=== PATIENT | female | born 1950 | race Caucasian/White ===

== ENCOUNTER 2022-12-03 06:01 | Day surgery (SDC) | payer MEDICARE, BC, SELFPAY ==
[2022-12-03] VITALS (26 sets, daily range): BP systolic 77–162; BP diastolic 43–93; PULSE 48–66; RESP 12–16; TEMP 35.5–36.7; O2SAT 95–100; BMI 21.0
[2022-12-03] MEDS: SODIUM CHLORIDE 0.9 % (FLUSH) 10 ML SYRINGE IVF (06:50)
[2022-12-03] MEDS: ACETAMINOPHEN 500 MG TABLET 1000 MG PO ×3 (06:50→19:53)
[2022-12-03] MEDS: LACTATED RINGERS 1000 ML 1,000 ML 100 ML IV ×2 (06:50→09:11)
[2022-12-03] MEDS: OXYCODONE (CR) 10 MG TAB.ER.12H PO (06:50)
[2022-12-03] MEDS: fentaNYL 100 MCG/2 ML inj IVP (07:22)
[2022-12-03] MEDS: MIDAZOLAM HCL 1 MG/ML inj IVP (07:22)
--- NOTE | 2022-12-03 07:36 | SUR.PREOP ---
TIME?OUT:?0722 PT/RN/MDA?VERIFICATION?OF?SURGICAL?SITE,?PROCEDURE,?AND?CONSENT OBTAINED?PRIOR?TO?INVASIVE?PROCEDURE.
[2022-12-03] MEDS: CEFAZOLIN 2 GM INJ IVP (07:45)
[2022-12-03] MEDS: TRANEXAMIC ACID 100 MG/ML INJ 1000 MG IV (07:50)
--- NOTE | 2022-12-03 09:17 | W.ANESCHARGE ---
Anesthesia Charges Start Date/Time Anesthesia Start Date: 12/03/22 Anesthesia Start Time: 07:36 Stop Date/Time Anesthesia Stop Date: 12/03/22 Anesthesia Stop Time: 11:02 Summary Extremes of Age - Over 70 or under 1: MDA
--- NOTE | 2022-12-03 09:18 | W.PM.NB ---
Nerve Block Nerve Block Time Seen by Provider: 07:25 Date Seen: 12/03/22 Type of block requested by surgeon for post-operative analgesia: adductor canal Side: bilateral Time out performed: Yes Verification of patient name: Yes Verification of date of : Yes Site marking: site marked Name of person performing procedure: Jamar Continuous monitoring Was continuous monitoring of O2 sat, B/P, bus monitor, recorded every 15 minutes?: Yes Procedure Checklist: sterile prep, needles and gloves Ultrasound guided. Images saved: Yes Medications given in 5ml increments after negative aspiration: Marcaine %: 0.25 mL: 28 Needle gauge: 20 and Exparel mL: 14 Needle gauge: 20 Patient tolerated procedure well: Yes Additional comments: Needle noted adjacent to nerve Block Charges Block Charge (with Pro Fee): Femoral Nerve Use of Ultrasound Machine for Block: Yes- US Guidance/pain block
--- NOTE | 2022-12-03 09:20 | P.NB_ITS ---
Nerve Block Nerve Block Time Seen by Provider: 07:25 Date Seen: 12/03/22 Type of block requested by surgeon for post-operative analgesia: geniculars Side: bilateral Time out performed: Yes Verification of patient name: Yes Verification of date of : Yes Site marking: site marked Name of person performing procedure: Jamar Continuous monitoring Was continuous monitoring of O2 sat, B/P, property assessment monitor, recorded every 15 minutes?: Yes Procedure Checklist: sterile prep, needles and gloves Medications given in 5ml increments after negative aspiration: Marcaine %: 0.25 mL: 12 Needle gauge: 25 and Exparel mL: 6 Needle gauge: 25 Patient tolerated procedure well: Yes Block Charges Block Charge (with Pro Fee): Genicular Nerve Block Use of Ultrasound Machine for Block: No
--- NOTE | 2022-12-03 10:18 | CRLHL7_ITS ---
For Patients: As a result of the Cures Act, medical imaging exams and procedure reports are released immediately into your electronic medical record. You may view this report before your referring provider. If you have questions, please contact your health care provider. Indication: POST OP TKA Technique: Two views right knee Findings/Impression: Hardware from a right total knee arthroplasty is in satisfactory position. Bone alignment is normal. No sign of acute fracture. Postop changes are within normal limits. Dictated by Hemant Sheth MD @ 12/03/2022 11:41:47 AM (Electronically Signed)
--- NOTE | 2022-12-03 10:18 | CRLHL7_ITS ---
For Patients: As a result of the Cures Act, medical imaging exams and procedure reports are released immediately into your electronic medical record. You may view this report before your referring provider. If you have questions, please contact your health care provider. Indication: POSTOP TKA Technique: Two views left knee Findings/Impression: Hardware from a left total knee arthroplasty is in satisfactory position. Bone alignment is normal. No sign of acute fracture. Postop changes are within normal limits. Dictated by Hemant Sheth MD @ 12/03/2022 11:41:18 AM (Electronically Signed)
--- NOTE | 2022-12-03 10:21 | PM.ORPRC ---
Procedure Note Date of procedure: 12/03/22 Procedure: PREOPERATIVE DIAGNOSIS: Bilateral knee osteoarthritis POSTOPERATIVE DIAGNOSIS: Bilateral knee osteoarthritis NAME OF OPERATION: Bilateral total knee arthroplasty SURGEON: Mynor Rosas MD RADIOGRAPHER CARDIAC CATHETERIZATION: EARL Denney ANESTHESIA: Spinal ESTIMATED BLOOD LOSS: 0 mL COMPLICATIONS: None SPECIMENS: None DRAINS: None PREOPERATIVE ANTIBIOTICS: Ancef 2 grams IMPLANTS: 1. J&J Attune # 5 posterior stabilized femur 2. #4 fixed-bearing tibia 3. #5 posterior stabilized, 5 mm fixed-bearing polyethylene 4. 38 patella INDICATIONS: The patient is a 72-year-old with a longstanding history of severe, unrelenting bilateral knee pain secondary to end-stage (grade IV) bilateral knee osteoarthritis. Despite appropriate nonoperative management, including activity modification, anti-inflammatories, [id number] pain medication, bracing, physical therapy, and injections they continue to have pain and disability. Operative intervention was offered. The risks, benefits and expected outcomes were discussed in detail. These included but were not limited to: Infection, bleeding, injury to blood vessel or nerve, venous thromboembolism. All questions were answered to their satisfaction. Use of an assistant professor of radiology was necessary throughout the case for patient positioning and safety, soft tissue retraction, and closure. PROCEDURE: Spinal anesthesia was administered. The patient was placed supine on the operating table. The assistant professor of radiology made sure the patient was positioned appropriately. Both lower extremities were prepped and draped in the usual sterile fashion. The right knee was approached 1st. It was exsanguinated with the Ravinder bandage. The pneumatic tourniquet was inflated to 300 mmHg. A standard anterior incision was made with the knee in flexion. Subcutaneous dissection was sharply taken through fascial layer #1. Full-thickness medial and lateral flaps were elevated. The assistant professor of radiology retracted the soft tissues and protected them throughout the case. A standard medial parapatellar approach was made. The patella was everted. The infrapatellar fat pad was preserved. The menisci and cruciate ligaments were sharply d?brided. Marginal osteophytes were d?brided with the rongeur. The drill was used to penetrate the femoral canal. The canal was aspirated and irrigated with pulse lavage. The intramedullary femoral guide was placed for a 5-degree valgus cut, removing 10 mm off the distal femur. The saw was used to make the cut. Whitesides line and the trans epicondylar axis were marked. The femoral sizing guide was pinned onto the distal femur. Three degrees of external rotation nicely parallels the transepicondylar axis. Pins were placed for posterior referencing. The four-in-one cutting guide was pinned onto the distal femur. The anterior, posterior, and chamfer cuts were made. The assistant professor of radiology protected the collateral ligaments. The box cutting guide was pinned. The box cuts were made. The boxed trial was placed and was an excellent fit. Drill holes for the lugs were made. Attention was then turned to the proximal tibia. The extramedullary tibial guide was placed for a neutral varus/valgus cut with 5 degrees of posterior slope, removing 2 mm based off the medial tibial surface. The assistant professor of radiology protected the collateral ligaments and the neurovascular bundle. The saw was used to make the cut. Trial components were placed. The knee was nicely balanced in both flexion and extension. The trial components were removed. The tray was placed in appropriate rotation, parallel to our tibial cutting pins. It was pinned by the assistant professor of radiology and the drill and the punch were used. The tray was removed. The punch was used again. We placed a bone plug in the femoral canal. Attention was then turned to the patella. [place] patellar thickness was 16 mm. The lobster claw resection guide was used with the 7.5 mm stas and the saw blade used as an extra stas. The saw was used to make the cut. Drill holes were made by the assistant professor of radiology. The trial was placed and was an excellent fit. Cancellous surfaces were irrigated with pulse lavage and thoroughly dried by the assistant professor of radiology. We cemented the tibial component, then the femoral component. We impacted the 5 mm polyethylene onto the tibial tray. The knee was brought into full extension. We then cemented the patellar component. Excessive cement was removed. The cement was allowed to harden. The knee was taken through a range of motion and was found to be nicely balanced in both flexion and extension. The patella tracks centrally. The assistant professor of radiology did a three minute dilute Betadine solution soak. The assistant professor of radiology irrigated the wound with 3 liters of normal saline via pulse lavage. The assistant professor of radiology reapproximated the extensor mechanism with #1 Vicryl in an interrupted gcsyss-as-kvkms fashion. The assistant professor of radiology then ran the extensor mechanism with a #1 PDO Stratafix. The assistant professor of radiology closed the subcutaneous tissues with a 3-0 Stratafix and the skin with a running 3-0 Stratafix in a subcuticular fashion. Glue was used to seal the skin. The assistant professor of radiology placed a dry dressing, JOSEPHINE stocking, and Polar Care. Attention was then turned to the left knee. The limb was exsanguinated with the Ravinder bandage. The pneumatic tourniquet inflated to 300 mmHg. A standard anterior incision was made with the knee in flexion. Subcutaneous dissection was sharply taken through fascial layer #1. Full-thickness medial and lateral flaps were elevated. The assistant professor of radiology retracted the soft tissues and protected them throughout the case. A standard medial parapatellar approach was made. The patella was everted. The infrapatellar fat pad was preserved. The menisci and cruciate ligaments were sharply d?brided. Marginal osteophytes were d?brided with the rongeur. The drill was used to penetrate the femoral canal. The canal was aspirated and irrigated with pulse lavage. The intramedullary femoral guide was placed for a 5-degree valgus cut, removing 10 mm off the distal femur. The saw was used to make the cut. Whitesides line and the trans epicondylar axis were marked. The femoral sizing guide was pinned onto the distal femur. Three degrees of external rotation nicely parallels the transepicondylar axis. Pins were placed for posterior referencing. The four-in-one cutting guide was pinned onto the distal femur. The anterior, posterior, and chamfer cuts were made. The assistant professor of radiology protected the collateral ligaments. The box cutting guide was pinned. The box cuts were made. The boxed trial was placed and was an excellent fit. Drill holes for the lugs were made. Attention was then turned to the proximal tibia. The extramedullary tibial guide was placed for a neutral varus/valgus cut with 5 degrees of posterior slope, removing 2 mm based off the medial tibial surface. The assistant professor of radiology protected the collateral ligaments and the neurovascular bundle. The saw was used to make the cut. Trial components were placed. The knee was nicely balanced in both flexion and extension. The trial components were removed. The tray was placed in appropriate rotation, parallel to our tibial cutting pins. It was pinned by the assistant professor of radiology and the drill and the punch were used. The tray was removed. The punch was used again. We placed a bone plug in the femoral canal. Attention was then turned to the patella. [place] patellar thickness was 16 mm. The lobster claw resection guide was used with the 7.5 mm stas and the saw blade used as an extra stas. The saw was used to make the cut. Drill holes were made by the assistant professor of radiology. The trial was placed and was an excellent fit. Cancellous surfaces were irrigated with pulse lavage and thoroughly dried by the assistant professor of radiology. We cemented the tibial component, then the femoral component. We impacted the 5 mm polyethylene onto the tibial tray. The knee was brought into full extension. We then cemented the patellar component. Excessive cement was removed. The cement was allowed to harden. The knee was taken through a range of motion and was found to be nicely balanced in both flexion and extension. The patella tracks centrally. The assistant professor of radiology did a three minute dilute Betadine solution soak. The assistant professor of radiology irrigated the wound with 3 liters of normal saline via pulse lavage. The assistant professor of radiology reapproximated the extensor mechanism with #1 Vicryl in an interrupted ldugkj-xb-twyau fashion. The assistant professor of radiology then ran the extensor mechanism with a #1 PDO Stratafix. The assistant professor of radiology closed the subcutaneous tissues with a 3-0 Stratafix and the skin with a running 3-0 Stratafix in a subcuticular fashion. Glue was used to seal the skin. The assistant professor of radiology placed a dry dressing, JOSEPHINE stocking, and Polar Care. Sponge and needle counts were correct x2. The patient tolerated the procedure well. There were no apparent complications. They were carefully transferred to the hospital bed and taken to the postanesthesia care unit in satisfactory condition. PLAN: The patient will be mobilized with physical therapy. Aspirin will be used for DVT prophylaxis. They will be discharged to home once medically appropriate.
--- NOTE | 2022-12-03 11:13 | P.ANES_ITS ---
Anesthesia Charges Start Date/Time Anesthesia Start Date: 12/03/22 Anesthesia Start Time: 07:36 Stop Date/Time Anesthesia Stop Date: 12/03/22 Anesthesia Stop Time: 11:02 Summary Extremes of Age - Over 70 or under 1: LARGE [employer]IMAL [employer]ET[employer]IN[employer]IAN
[2022-12-03] MEDS: OXYCODONE 5 MG TABLET PO ×4 (13:16→23:27)
--- NOTE | 2022-12-03 14:43 | PC.NURSE ---
Arrived on floor from PACU around 11:40. Alert and oriented, pleasant and cooperative initially rating pain 0/10 bilateral knees. Later rating pain as 3/10 see MAR for management. Dressings CDI, tolerating regular diet, up in chair with PT.
--- NOTE | 2022-12-03 15:44 | PM.IMCN1 ---
Date of Consult Patient: Other Consult date: 12/03/22 Requesting Physician: Orthopedics Primary Care Provider: Not a Local Provider Consult Narrative Reason for consult: hypertension, hypothyroidism Narrative: Maria Guadalupe Pereyra is a 72 year old female with severe osteoarthritis of both knees who underwent bilateral total knee arthroplasty by Dr. Rosas today. Postoperatively she feels very well and has very little pain at this time. Review of Systems Status of ROS: Reports: 10 or more systems reviewed and unremarkable except as noted in History and below PFSH [facility] Medical History (Updated 12/03/22 @ 19:19 by Padmini Oro MD) Menopausal and female climacteric states (~03/13/17) ?N95.1 - Menopausal and female climacteric states (ICD-10) COVID-19 virus infection (~01/02/22) ?U07.1 - COVID-19 (ICD-10) Skin cancer (~10/13/18) ?C44.90 - Unspecified malignant neoplasm of skin, unspecified (ICD-10) Retinal disorder (~03/16/20) ?H35.9 - Unspecified retinal disorder (ICD-10) Irritable bowel syndrome without diarrhea ?K58.9 - Irritable bowel syndrome without diarrhea (ICD-10) Hypertension (~11/26/22) ?I10 - Essential (primary) hypertension (ICD-10) Hyperlipidemia (~10/13/18) ?E78.5 - Hyperlipidemia, unspecified (ICD-10) BRCA gene positive ?Z15.01 - Genetic susceptibility to malignant neoplasm of breast (ICD-10) ?Z15.09 - Genetic susceptibility to other malignant neoplasm (ICD-10) Diverticulitis (~03/02/22) ?K57.92 - Diverticulitis of intestine, part unspecified, without perforation or abscess without bleeding (ICD-10) Hypothyroid (~01/2017) ?E03.9 - Hypothyroidism, unspecified (ICD-10) GERD (gastroesophageal reflux disease) ?K21.9 - Gastro-esophageal reflux disease without esophagitis (ICD-10) Meniere's disease ?H81.09 - Meniere's disease, unspecified ear (ICD-10) Surgical History (Updated 12/03/22 @ 14:36 by Padmini Oro MD) Hx of cataract extraction (~11/2017) ?Z98.49 - Cataract extraction status, unspecified eye (ICD-10) H/O dilation and curettage (~1981) ?Z98.890 - Other specified postprocedural states (ICD-10) Hx of hammer toe correction (~2008) ?Z98.890 - Other specified postprocedural states (ICD-10) ?Z87.39 - Personal history of other diseases of the musculoskeletal system and connective tissue (ICD-10) S/P foot surgery, left (~2009) ?Z98.890 - Other specified postprocedural states (ICD-10) History of bunionectomy (~1986) ?Z98.890 - Other specified postprocedural states (ICD-10) H/O carpal tunnel repair (~05/2022) ?Z98.890 - Other specified postprocedural states (ICD-10) History of colon surgery (05/2022) ?Z98.890 - Other specified postprocedural states (ICD-10) History of hysterectomy with bilateral oophorectomy (~12/2002) ?Z90.710 - Acquired absence of both cervix and uterus (ICD-10) ?Z90.722 - Acquired absence of ovaries, bilateral (ICD-10) History of tonsillectomy (~1962) ?Z90.89 - Acquired absence of other organs (ICD-10) Family History (Updated 12/03/22 @ 14:44 by Padmini Oro MD) Mother Ovarian cancer High blood pressure Hypothyroidism Osteoporosis Rheumatoid arthritis Thyroid cancer Sister Ovarian cancer High blood pressure Father Prostate cancer High blood pressure Brother Prostate cancer High blood pressure Cardiac arrhythmia Daughter Diabetes Daughter Skin cancer Grandfather Cardiovascular disease Dementia Sister BRCA2 positive High blood pressure Ovarian cancer Rectal cancer Sister High blood pressure Social History (Updated 12/03/22 @ 19:00 by Padmini Oro MD) Narrative: . Denies tobacco. Drinks a glass of wine with dinner 5 days a week. Denies recreational drug use. What is your current living situation?: I presently have a place to live In the past 12 months, utilities in danger of being shut off: no In the past 12 mos, have been you worried that your food would run out before you had money to buy more?: never true In the past 12 mos, the food you bought just didn't last and you didn't have money to buy more?: never true Smoking Status: Never smoker Do you use any of these nicotine containing products: None Second hand tobacco smoke exposure: No How often do you have a drink containing alcohol: 2-3 times a week Alcohol type: wine How many standard drinks containing alcohol do you have on a typical day: 1 or 2 How often do you have six or more drinks on one occasion: Never AUDIT-C Alcohol total score: 3 Non-prescribed substance use: denies use Caffeine: No How often does anyone, including family, friends and others, physically hurt you: never How often does anyone, including family, friends and others, insult or talk down to you: never How often does anyone, including family, friends and others, threaten you with harm: never How often does anyone, including family, friends and others, scream or curse at you: never service: No Meds Home Medications and Allergies Home Medications Medication Instructions Recorded Confirmed Type atenolol 100 mg tablet 100 mg PO DAILY 10/16/22 12/03/22 History cetirizine 10 mg capsule (Zyrtec) 10 mg PO HS 10/16/22 12/03/22 History levothyroxine 50 mcg tablet 50 mcg PO DAILY 10/16/22 12/03/22 History mupirocin 2 % topical ointment 1 applic topical BID-TID 10/16/22 12/03/22 History valacyclovir 1 gram tablet 4,000 mg PO ONCE 10/16/22 12/03/22 History Allergies Allergy/AdvReac Type Severity Reaction Status Date / Time Sulfa (Sulfonamide Allergy Unknown Verified 12/03/22 06:30 Antibiotics) azithromycin Allergy upset Verified 12/03/22 06:30 stomach cefprozil Allergy Verified 12/03/22 06:30 gluten Allergy unable to Verified 12/03/22 06:30 digest lactose Allergy Diarrhea Verified 12/03/22 06:30 spironolactone Allergy hyponatremi Verified 12/03/22 06:30 a Exam Narrative: Exam Narrative: General: No acute distress. Awake alert oriented x3. HEENT: Normocephalic atraumatic, pupils equally round and reactive to light and accommodation. Oropharynx clear. Mucous membranes are moist. No cervical lymphadenopathy, thyromegaly or carotid bruits. No JVD. Cardiovascular: Regular rate and rhythm. No murmurs, gallops, or rubs. Chest: No increased work of breathing. Clear to auscultation bilaterally. No crackles or wheezes. Abdomen: Bowel sounds present. Soft, nondistended, nontender. No hepatosplenomegaly or masses. Extremities: Both right and left knee bandages are clean, dry, and intact. No edema, no cyanosis or clubbing. Skin: No jaundice, no pallor. Const: Vital Signs, click to edit/add: Vital Signs - 24 hr 12/03/22 06:35 12/03/22 07:21 12/03/22 07:25 Temperature 97.7 F Pulse Rate 48 L 50 L 49 L Pulse Rate [Pulse Oximeter] Respiratory Rate 16 16 16 Blood Pressure 160/72 H 162/71 H 129/59 L Blood Pressure [Ri ght Arm] Pulse Oximetry 100 99 99 Oxygen Delivery Me thod Room Air Nasal Cannula Nasal Cannula Oxygen Flow Rate 2 2 12/03/22 07:30 12/03/22 10:57 12/03/22 11:00 Temperature 96.7 F L Pulse Rate 48 L 54 L 57 L Pulse Rate [Pulse Oximeter] Respiratory Rate 16 12 14 Blood Pressure 143/66 H 77/43 L 90/53 L Blood Pressure [Ri ght Arm] Pulse Oximetry 99 97 96 Oxygen Delivery Me thod Nasal Cannula Room Air Oxygen Flow Rate 2 12/03/22 11:05 12/03/22 11:10 12/03/22 11:15 Temperature Pulse Rate 51 L 53 L 58 L Pulse Rate [Pulse Oximeter] Respiratory Rate 14 14 15 Blood Pressure 103/52 L 112/76 102/64 Blood Pressure [Ri ght Arm] Pulse Oximetry 98 95 95 Oxygen Delivery Me thod Oxygen Flow Rate 12/03/22 11:20 12/03/22 11:25 12/03/22 11:30 Temperature 96.9 F L Pulse Rate 53 L 54 L 66 Pulse Rate [Pulse Oximeter] Respiratory Rate 16 16 14 Blood Pressure 110/93 H 116/71 115/73 Blood Pressure [Ri ght Arm] Pulse Oximetry 97 96 97 Oxygen Delivery Me thod Oxygen Flow Rate 12/03/22 11:43 12/03/22 11:45 12/03/22 12:00 Temperature 96 F L Pulse Rate 55 L Pulse Rate [Pulse Oximeter] 54 L 56 L Respiratory Rate 14 16 16 Blood Pressure Blood Pressure [Ri ght Arm] 145/67 H 129/73 122/77 Pulse Oximetry 99 98 Oxygen Delivery Me thod Room Air Room Air Room Air Oxygen Flow Rate 12/03/22 12:15 12/03/22 12:30 12/03/22 13:00 Temperature 97 F L Pulse Rate Pulse Rate [Pulse Oximeter] 49 L 50 L 51 L Respiratory Rate 16 16 16 Blood Pressure Blood Pressure [Ri ght Arm] 125/67 125/67 145/78 H Pulse Oximetry 99 98 99 Oxygen Delivery Me thod Room Air Room Air Room Air Oxygen Flow Rate 12/03/22 13:30 12/03/22 14:00 12/03/22 15:00 Temperature Pulse Rate Pulse Rate [Pulse Oximeter] 50 L Respiratory Rate 16 Blood Pressure Blood Pressure [Ri ght Arm] 160/70 H 132/71 Pulse Oximetry 98 99 Oxygen Delivery Me thod Room Air Oxygen Flow Rate 12/03/22 15:00 Temperature 97 F L Pulse Rate Pulse Rate [Pulse Oximeter] 55 L Respiratory Rate 16 Blood Pressure Blood Pressure [Ri ght Arm] 126/56 L Pulse Oximetry 99 Oxygen Delivery Me thod Room Air Oxygen Flow Rate Labs Labs: Ordering Physician: Mynor Rosas M.D. Date of Service: 12/03/22 Procedure(s): XR knee LT 2V Accession Number(s): [id number] cc: Mynor Rosas M.D.; Provider,Not a Local~ For Patients: As a result of the Cures Act, medical imaging exams and procedure reports are released immediately into your electronic medical record. You may view this report before your referring provider. If you have questions, please contact your health care provider. Indication: POSTOP TKA Technique: Two views left knee Findings/Impression: Hardware from a left total knee arthroplasty is in satisfactory position. Bone alignment is normal. No sign of acute fracture. Postop changes are within normal limits. Dictated by Hemant Sheth MD @ 12/03/2022 11:41:18 AM (Electronically Signed) Ordering Physician: Mynor Rosas M.D. Date of Service: 12/03/22 Procedure(s): XR knee RT 2V Accession Number(s): [id number] cc: Mynor Rosas M.D.; Provider,Not a Local~ For Patients: As a result of the Cures Act, medical imaging exams and procedure reports are released immediately into your electronic medical record. You may view this report before your referring provider. If you have questions, please contact your health care provider. Indication: POST OP TKA Technique: Two views right knee Findings/Impression: Hardware from a right total knee arthroplasty is in satisfactory position. Bone alignment is normal. No sign of acute fracture. Postop changes are within normal limits. Dictated by Hemant Sheth MD @ 12/03/2022 11:41:47 AM (Electronically Signed) Assessment and Plan Assessment and plan (1) Status post bilateral knee replacements: Problem comment: - routine post op TKA cares - PT and OT - VTE prophylaxis with BID low dose aspirin Status: Acute (2) Osteoarthritis of right knee: Status: Chronic (3) Osteoarthritis of left knee: Status: Chronic (4) Hypertension: Problem comment: - white coat - toprol xl 50mg daily - hold toprol overnight. May restart tomorrow if BP elevated or upon discharge home. Status: Chronic (5) Hypothyroid: Problem comment: 11/12/22 Free T4 wnl - continue levothyroxine Status: Chronic (6) GERD (gastroesophageal reflux disease): Problem comment: Start PPI while on celebrex. Status: Chronic
[2022-12-03] MEDS: CEFAZOLIN 2 GM in 0.9 % SODIUM CHLORIDE Mini-bag 100 ML IVPB (16:23)
--- NOTE | 2022-12-03 17:58 | PC.NURSE ---
PATIENT PLEASANT AND COOPERATIVE, ALERT AND ORIENTED, UP TO CHAIR WITH A1 WALKER AND BELT, TOLERATING REGULAR DIET NO NAUSEA NOTED, DRESSINGS TO BILAT KNEES CDI, REPORTING PAIN 3/10 IN BOTH KNEES, PATIENT STATES ITS ACHY.
[2022-12-03] MEDS: diphenhydrAMINE 50 MG/ML inj IVP (20:11)
[2022-12-03] MEDS: ASPIRIN 81 MG TABLET EC PO (20:11)
[2022-12-04] VITALS: BP 124/54; PULSE 57; RESP 16; TEMP 36.4; O2SAT 99
[2022-12-04] MEDS: CEFAZOLIN 2 GM in 0.9 % SODIUM CHLORIDE Mini-bag 100 ML IVPB (00:22)
[2022-12-04] MEDS: ACETAMINOPHEN 500 MG TABLET 1000 MG PO ×2 (01:16→08:23)
[2022-12-04 04:00] VITALS: BP 142/87; PULSE 69; RESP 16; TEMP 36.4; O2SAT 99
[2022-12-04] MEDS: OXYCODONE 5 MG TABLET PO ×3 (04:58→12:06)
[2022-12-04 06:13] LABS: Basophils Absolute Auto 0.02 K/uL (0.00-0.30); Basophils Percent Auto 0.2 % (0.0-3.0); Eosinophils Absolute Auto 0.06 K/uL (0.00-0.50); Eosinophils Percent Auto 0.6 % (0.0-7.0); Hematocrit 31.2 % (33.0-51.0); Hemoglobin* 10.4 gm/dL (12.0-16.0); Immature Granulocytes Abs Auto 0.01 K/uL (0.00-0.30); Immature Granulocytes Pct Auto 0.1 %; Lymphocytes Percent Auto 18.8 % (20-44); Mean Corpuscular HGB Conc 33 gm/dL (32-36); Mean Corpuscular Hemoglobin 31 pg (26-34); Mean Corpuscular Volume 92 fL (80-100); Monocytes Percent Auto 13.8 % (0.0-11.0); Neutrophils Absolute Auto 7.17 K/uL (1.7-7.0); Neutrophils Percent Auto 66.5 % (42.0-72.0); Platelet Count* 327 K/uL (140-440); RDW Coefficient of Variation % 12.6 % (11.5-15.5); Red Blood Count 3.38 m/uL (4.00-5.20); White Blood Count* 10.76 K/uL (4.50-11.00)
[2022-12-04 06:16] LABS: Slide Review Reflex No
[2022-12-04 06:26] LABS: Potassium* 4.2 mmol/L (3.6-5.1); Sodium* 129 mmol/L (135-149)
[2022-12-04 06:29] LABS: Blood Urea Nitrogen* 13 mg/dL (7-30); Creatinine* 0.6 mg/dL (0.5-1.5); Estimated Glomerular Filt Rate 97 ml/min
[2022-12-04 06:40] LABS: INR 1.01 (0.91-1.10); Prothrombin Time 13.9 Seconds
[2022-12-04] MEDS: LEVOTHYROXINE 50 MCG TABLET PO (06:47)
[2022-12-04] MEDS: OMEPRAZOLE 20 MG CAPSULE DR PO (06:47)
--- NOTE | 2022-12-04 07:34 | PC.NURSE ---
19-07: pleasant and cooperative. A x 1 with gb and walker. Rates pain 2/10, prn 5mg oxy given x 2. pt declined stool softener at HS, states she frequently has loose stools, magnetic tape typewriter operator educated pt on opioids and constipation, pt stated she would like to hold off for now and will likely take AM dose of senna. VSS. Dressing to knees CDI, cryo cuffs on.
[2022-12-04 08:00] VITALS: BP 146/65; PULSE 59; RESP 16; TEMP 36.3; O2SAT 96
[2022-12-04] MEDS: ASPIRIN 81 MG TABLET EC PO (08:25)
[2022-12-04] MEDS: SENNOSIDES 1 TAB TABLET 2 TAB PO (08:26)
--- NOTE | 2022-12-04 08:37 | PM.ORPN ---
Subjective Subjective Time Seen by Provider: 07:15 Date Seen: 12/04/22 Principal diagnosis: Status post bilateral knee replacement Interval history: Maria Guadalupe is comfortable. She is active. She feels she is able to go home today, for she is ambulating well and feels well. Ortho Exam Narrative Exam Narrative: Alert and oriented x3. Patient is in no acute distress. Converses without labored breathing. Hearing is grossly intact. Ambulates with a walker. Examination of both knees shows dressings are intact. No erythema or warmth or sign of infection. Soft tissue edema is mild. Mild effusions. Bilateral calves are soft and nontender. She is able to straight leg raise bilateral. Bilateral calves are soft and nontender. CMS intact bilateral lower extremities. Const Vital Signs, click to edit/add: Vital Signs - 24 hr 12/03/22 10:57 12/03/22 11:00 12/03/22 11:05 Temperature 96.7 F L Pulse Rate 54 L 57 L 51 L Pulse Rate [Pulse Oximeter] Respiratory Rate 12 14 14 Blood Pressure 77/43 L 90/53 L 103/52 L Blood Pressure [Right Arm] Pulse Oximetry 97 96 98 Oxygen Delivery Method Room Air Oxygen Flow Rate 12/03/22 11:10 12/03/22 11:15 12/03/22 11:20 Temperature Pulse Rate 53 L 58 L 53 L Pulse Rate [Pulse Oximeter] Respiratory Rate 14 15 16 Blood Pressure 112/76 102/64 110/93 H Blood Pressure [Right Arm] Pulse Oximetry 95 95 97 Oxygen Delivery Method Oxygen Flow Rate 12/03/22 11:25 12/03/22 11:30 12/03/22 11:43 Temperature 96.9 F L Pulse Rate 54 L 66 55 L Pulse Rate [Pulse Oximeter] Respiratory Rate 16 14 14 Blood Pressure 116/71 115/73 Blood Pressure [Right Arm] 145/67 H Pulse Oximetry 96 97 Oxygen Delivery Method Room Air Oxygen Flow Rate 12/03/22 11:45 12/03/22 12:00 12/03/22 12:15 Temperature 96 F L Pulse Rate Pulse Rate [Pulse Oximeter] 54 L 56 L 49 L Respiratory Rate 16 16 16 Blood Pressure Blood Pressure [Right Arm] 129/73 122/77 125/67 Pulse Oximetry 99 98 99 Oxygen Delivery Method Room Air Room Air Room Air Oxygen Flow Rate 12/03/22 12:30 12/03/22 13:00 12/03/22 13:30 Temperature 97 F L Pulse Rate Pulse Rate [Pulse Oximeter] 50 L 51 L 50 L Respiratory Rate 16 16 16 Blood Pressure Blood Pressure [Right Arm] 125/67 145/78 H 160/70 H Pulse Oximetry 98 99 98 Oxygen Delivery Method Room Air Room Air Room Air Oxygen Flow Rate 12/03/22 14:00 12/03/22 15:00 12/03/22 15:00 Temperature 97 F L Pulse Rate Pulse Rate [Pulse Oximeter] 55 L Respiratory Rate 16 Blood Pressure Blood Pressure [Right Arm] 132/71 126/56 L Pulse Oximetry 99 99 Oxygen Delivery Method Room Air Oxygen Flow Rate 12/03/22 16:27 12/03/22 17:58 12/03/22 20:00 Temperature 97 F L 98.1 F Pulse Rate Pulse Rate [Pulse Oximeter] 54 L 56 L 61 Respiratory Rate 16 16 16 Blood Pressure Blood Pressure [Right Arm] 136/51 L 130/62 149/67 H Pulse Oximetry 98 99 99 Oxygen Delivery Method Room Air Room Air Room Air Oxygen Flow Rate 12/03/22 21:49 12/03/22 23:00 12/04/22 00:00 Temperature 97.6 F Pulse Rate Pulse Rate [Pulse Oximeter] 57 L Respiratory Rate 16 16 Blood Pressure Blood Pressure [Right Arm] 124/54 L Pulse Oximetry 99 99 Oxygen Delivery Method Room Air Oxygen Flow Rate 12/04/22 04:00 Temperature 97.5 F L Pulse Rate Pulse Rate [Pulse Oximeter] 69 Respiratory Rate 16 Blood Pressure Blood Pressure [Right Arm] 142/87 H Pulse Oximetry 99 Oxygen Delivery Method Room Air Oxygen Flow Rate 2 Assessment and Plan Assessment and plan (1) Status post bilateral knee replacements: Problem details: 12/03/2022 Status: Acute Assessment and Plan: Plan for discharge is today to home if they meet discharge criteria. DVT prophylaxis includes aspirin 81 mg twice daily x1 month, Rick stockings x1 month may remove for 1 hr per day, frequent ambulation Remove dressing in 1 week. Observe wound and phone Orthopedics with any questions or concerns Return to clinic in 1 week for a wound check Return to clinic in 6 weeks with surgeon Minimize narcotic use. Wean off and discontinue soon as possible. Activities as tolerated. No strenuous activity. Outpatient physical therapy as scheduled. Ice and elevate the operative extremity. No restriction on ice. (2) Hypertension: Problem details: - white coat - toprol xl 50mg daily - hold toprol overnight. May restart tomorrow if BP elevated or upon discharge home. Status: Chronic (3) Hypothyroid: Problem details: 11/12/22 Free T4 wnl - continue levothyroxine Status: Chronic (4) GERD (gastroesophageal reflux disease): Problem details: Start PPI while on celebrex. Status: Chronic
--- NOTE | 2022-12-04 12:25 | PC.NURSE ---
Patient alert and oriented, pleasant and cooperative. Up standby assist with walker and belt, tolerating well. Rating pain in bilateral knees as 3/10 and achy being managed see MAY. Dressing CDI on bilateral knees. Patient discharged to home with . Patient and verbalized understanding of discharge information with no further questions. Patient left with at 1215.
--- NOTE | 2022-12-04 14:00 | P.IMPN_ITS ---
Progress Note: A&P Assessment and plan (1) Hypertension: Problem details: Chronic hypertension with history of elevation of blood pressures at clinic visits. She is to continue to monitor home blood pressures. Consider bring her home blood pressure cuff to the clinic to correlate blood pressure readings. Status: Chronic (2) Hyponatremia: Problem details: Likely a chronic problem which got worse secondary to heavy free water ingestion and surgery yesterday. Advised moderation in free fluid consumption and recheck of sodium in the next couple weeks. Status: Acute (3) Status post bilateral knee replacements: Problem details: 12/03/[address] Rosas. Doing well. Status: Acute Plan Discharge to home today with outpatient follow-up with primary care in the next couple weeks to review hyponatremia and hypertension management. Time Spent With Patient Total time spent: 20 minutes Subjective Date Seen: 12/04/22 Interval history: 72-year-old female seen in followup of bilateral knee arthroplasty day 1. She reports generally doing well. Her blood pressures have been moderately elevated during her hospital stay and we discussed this. She has been diagnosed with white coat hypertension and is also on atenolol 100 mg daily for chronic hypertension. She reports outpatient monitoring at home her blood pressures have been fairly well controlled. She also has hyponatremia with a sodium of 129 postop. Preop physical in October had a sodium of 134. She is not aware of a diagnosis of hyponatremia. She does report she has been drinking a large amount of water recently. She is not on any thiazide diuretics. Knee pain is well controlled and she has done well with ambulation with therapy. Exam Narrative: Exam Narrative: She is alert in no distress. Moving well with a walker. No significant edema. Const: Vital Signs, click to edit/add: Vital Signs - 24 hr 12/03/22 15:00 12/03/22 15:00 12/03/22 16:27 Temperature 97 F L 97 F L Pulse Rate [Pulse Oximeter] 55 L 54 L Respiratory Rate 16 16 Blood Pressure [Ri ght Arm] 126/56 L 136/51 L Pulse Oximetry 99 99 98 Oxygen Delivery Me thod Room Air Room Air Oxygen Flow Rate 12/03/22 17:58 12/03/22 20:00 12/03/22 21:49 Temperature 98.1 F Pulse Rate [Pulse Oximeter] 56 L 61 Respiratory Rate 16 16 Blood Pressure [Ri ght Arm] 130/62 149/67 H Pulse Oximetry 99 99 99 Oxygen Delivery Me thod Room Air Room Air Oxygen Flow Rate 12/03/22 23:00 12/04/22 00:00 12/04/22 04:00 Temperature 97.6 F 97.5 F L Pulse Rate [Pulse Oximeter] 57 L 69 Respiratory Rate 16 16 16 Blood Pressure [Ri ght Arm] 124/54 L 142/87 H Pulse Oximetry 99 99 Oxygen Delivery Me thod Room Air Room Air Oxygen Flow Rate 2 12/04/22 08:00 Temperature 97.4 F L Pulse Rate [Pulse Oximeter] 59 L Respiratory Rate 16 Blood Pressure [Ri ght Arm] 146/65 H Pulse Oximetry 96 Oxygen Delivery Me thod Room Air Oxygen Flow Rate Documenting provider has reviewed patient's vital signs: yes Labs Labs: Laboratory Results - last 24 hr 12/04/22 05:46 WBC 10.76 RBC 3.38 L Hgb 10.4 L Hct 31.2 L MCV 92 MCH 31 MCHC 33 RDW Coeff of Cira 12.6 Plt Count 327 Neut % (Auto) 66.5 Lymph % (Auto) 18.8 L [place] % (Auto) 13.8 H Eos % (Auto) 0.6 Baso % (Auto) 0.2 Neut # (Auto) 7.17 H Lymph # (Auto) 2.00 [place] # (Auto) 1.50 H Eos # (Auto) 0.06 Baso # (Auto) 0.02 Abs Immat Gran (auto) 0.01 Imm/Tot Granulo (auto) 0.1 INR 1.01 Sodium 129 L Potassium 4.2 BUN 13 Creatinine 0.6 Estimated Creat Clear 41.40 Estimated GFR 97
== END 2022-12-04 12:15 | disposition home or self-care (01) ==
LOC: OR 06:02 → MEDSURG 06:07
PROVIDERS: Visit Provider Orthopaedic Surgery
PROC: 0SRC0JZ Replacement of Right Knee Joint with Synthetic Substitute, Open Approach (ICD-10-PCS; CPT 27447; principal; 2022-12-03 07:30)
DX: M17.0 Bilateral primary osteoarthritis of knee (principal); G89.18 Other acute postprocedural pain; E87.1 Hypo-osmolality and hyponatremia; I10 Essential (primary) hypertension; E03.9 Hypothyroidism, unspecified; K21.9 Gastro-esophageal reflux disease without esophagitis
CPT/HCPCS: 27447; 01400; 01402; 36415; 64447; 64454; 73560; 76942; 82565; 84132; 84295; 84520; 85025; 85610; 97110; 97116; 97161; 97165; 97530; 97535; 99100; A9270; C1776; C9290; J0665; J0690; J1200; J2250; J3010; J7120

== ENCOUNTER 2023-01-17 15:00 | Outpatient (RCR) | payer MEDICARE, BC, SELFPAY ==
--- NOTE | 2022-11-25 14:58 | PT.OPEX ---
PT [facility] PT [facility] Outpatient Eval Start: 11/25/22 08:34 Freq: Status: Active Protocol: Document 11/25/22 08:34 CHHAYA (Rec: 11/25/22 14:09 CHHAYA [id number]) E-signed By Rossi Hanson Physical Therapy Outpatient Evaluation Insurance Information Recert Due Date 02/24/23 Insurance Name [employer] Medical Diagnosis M17.12 L knee OA Z96.652 Presence of L artificial knee joint Treating Diagnosis M25.561 R knee pain M25.562 L knee pain Z14.7 Aftercare following total joint replacement Referring MD Rosas Subjective Subjective Pt presents pre-op for BTKA on 12/03/[address] Rosas. Pt reports that L knee is worse than R. Pain has progressively gotten worse of the last 4-5 years. This is her 1st joint replacement. Sitting aggravates pain. Pain comes and goes. Pt takes Tylenol for pain. Pt lives with spouse who is able to assist. Pt lives in [facility], no steps to enter. Has a basement but doesn?t go down there. Walk in shower with grab bars. Has high rise toilet seat with raised toilet seat. Has shower bench. Will need to obtain 2WW and SPC. Pain Comments 09/07 Date of Last Physician Visit 10/16/22 Date of Next Physician Visit 12/11/22 Date of Surgery (If applicable) 12/03/22 Current Work Status Retired Preferred Name Maria Guadalupe Precautions Treatment Precautions/Contraindications PMHx: BRCA gene positive, hypothyroidism, Meniere's disease Weight Bearing Status Weight Bear as Tolerated Therapy Limitations/Systems Review Not Limited Objective Range of Motion R knee ROM =8-135 L knee ROM = 9-134 Hamstring length = WNLs B Painful B knee extension Strength Hip flexion L/R = 4+/4+ Hip abd L/R = 5/5 Hip add L/R = 5/5 Quads L/R = 4/4 Hamstrings L/R = 4+/4+ Palpation Crepitus B with all movement Assessment Assessment/Impression Pt is a 71yo F presenting pre- op for BTKA on 12/03/[address] Rosas. PMHx: BRCA gene positive, hypothyroidism, Meniere's disease. Pt reports long standing hx of B knee pain, L>R. STS is the most painful for pt. Takes Tylenol for pain management. Lives with spouse in [place] home, no steps to deal with. PLOF: IND no AD. Pt displays dec B knee ROM, with painful extension. MMTs scores are >4/ 5 with all muscle groups. Pt was educated on HEP, POC, post -op precautions, fall prevention, equipment needs, pain/swelling management, and stair training. Pt would continue to benefit from skilled PT services to address anticipated post-op impairments. Primary Functional Limitations Pain with functional activity Dec B knee ROM and strength Balance and gait deficits Plan of Care Rehabilitation Potential Excellent Physical Therapy Goals Within 4-6 weeks: 1.Pt will display active B knee ROM 0-120 deg to improve quality & safety of stair climbing. 2.Pt will display improved mechanics going up/down 13 stairs with a reciprocal pattern using 2 railings in order to safely get into house and 2nd floor of her home. 3. Pt will be independent with HEP to promote strength and decrease fall risk. 4.Pt will display improved B hip flex, hip ABD, quad and hamstring strength >4/5 in order to improve quality of gait without assistive device. 5.Pt will be able to stand for >15 minutes with B knee pain </= 2/10 in order to aid in meal preparation. Coordination/Communication With Referral Source Treatment Plan/Direct Interventions Gait Training,Joint Mobilization,Manual Therapy, Neuromuscular Re-ed,Self-Care/ Home Management,Therapeutic Activities,Therapeutic Exercises Frequency/Duration 2x/week for 6-8 weeks Patient Will Be Discharged From Therapy Completion of LTG(s),Skills Plateau,Independent w/HEP, Independently Progressing Evaluation Billing Untimed Code Treatment Minutes 10 PT Eval No Charge No Complexity Moderate Certification Information Initial Certification Date 11/25/22 Ending Certification Date 02/24/23 Provider Signature Shows Agreement With POC & Medical Necessity Physician Comment/Change : Physician NPI Number #
== END 2023-02-03 14:01 | disposition home or self-care (01) ==
PROVIDERS: Visit Provider Orthopaedic Surgery
DX: M17.0 Bilateral primary osteoarthritis of knee (principal); Z96.653 Presence of artificial knee joint, bilateral; M25.561 Pain in right knee; M25.562 Pain in left knee; Z47.1 Aftercare following joint replacement surgery; Z51.89 Encounter for other specified aftercare
CPT/HCPCS: 97110; 97112; 97116; 97140; 97162; 97164; 97530; 97535

== ENCOUNTER 2023-03-06 15:08 | Outpatient (CLI) | payer MEDICARE, BC, SELFPAY ==
--- NOTE | 2023-03-06 15:20 | CRLHL7_ITS ---
For Patients: As a result of the Cures Act, medical imaging exams and procedure reports are released immediately into your electronic medical record. You may view this report before your referring provider. If you have questions, please contact your health care provider. BILATERAL SCREENING MAMMOGRAM WITH COMPUTER-AIDED DETECTION AND TOMOSYNTHESIS TECHNIQUE: CC and MLO views were obtained. These mammographic images have been obtained using full-field digital technique. These mammographic images were interpreted with the benefit of computer-aided detection. Breast Tomosynthesis was used in this interpretation. COMPARISON FILM: 01/17/22, 12/21/20, 10/19/19. FINDINGS: There are scattered areas of fibroglandular density IMPRESSION: There is no radiographic evidence for malignancy. ASSESSMENT: BI-RADS Category 2: Benign RECOMMENDATION: Routine screening mammogram in 1 year. A lay language report of this examination will be provided to the patient. Hemant Sheth M.D. Diagnostic Radiologist [email or web address] / be/Dictated by: Hemant Sheth MD @ 03/10/2023 9:59:00 AM (Electronically Signed)
== END 2023-03-06 15:09 | disposition home or self-care (01) ==
LOC: MAMMO 15:08
PROVIDERS: PCP Internal Medicine; Visit Provider Internal Medicine
DX: Z12.31 Encounter for screening mammogram for malignant neoplasm of breast (principal)
CPT/HCPCS: 77063; 77067

== ENCOUNTER 2023-05-22 14:07 | Outpatient (CLI) | payer MEDICARE, BC, SELFPAY ==
--- NOTE | 2023-05-22 14:30 | XR_ITS ---
Patient: HANNA GARZON Facility:?[facility] Patient ID:?[id number] Site Patient ID:?[id number]. Site :?[id number] Study:?DEXA-Bone Density -05/22/2023 2:50:23 PM Ordering Physician:SOFY Final Report: DXA BONE MINERAL DENSITY STUDY Reason for exam: Osteopenia of spine. Current height (inches): 63.0 Weight (lbs.): 122.0 Menopause age: 52 Ethnicity: White 1. Have you had a previous hip or vertebral fracture? No. 2. Have you had any fractures during your adult life which did not result from significant trauma (e.g., auto accident)? No. 3. Did either of your parents have a hip fracture? No. 4. Do you smoke? No. 5. Have you ever taken Glucocorticoids? No. 6. Do you have rheumatoid arthritis? No. 7. Do you have secondary osteoporosis? No. 8. Do you drink 3 or more alcoholic drinks per day? No. 9. Are you being treated for osteoporosis? No. 10. Have you ever taken any of the following medications: Actonel, Evista, Fosamax, Miacalcin, Reclast, Boniva, Forteo, HRT (i.e., estrogen/hormone therapy), Protelos, Prolia, Vitamin D, Calcium, other ? please specify. ANSWER: Yes; vitamin D and calcium. 11. Do you have any of the following medical conditions: Anorexia or bulimia, asthma or emphysema, end stage renal disease, hyperparathyroidism, any seizure disorders, cancer, inflammatory bowel diseases, hysterectomy, other ? please specify. ANSWER: Yes; Inflammatory bowel disease, hysterectomy 12. What was your maximum height (inches)? 65. 13. Do you perform weightbearing exercise regularly? No. 14. Do you regularly consume dairy products? No. 15. Do you drink caffeinated beverages? Yes. 16. At what age did your period start? 17. 17. Are you premenopausal? No. 18. How many full-term pregnancies have you had? 2. 19. Have you ever missed your period for more than 6 months in a row (not including or menopause)? No. TECHNIQUE: Bone mineral density study was performed using the [employer]. FINDINGS: The results of the study expressed as bone mineral density (BMD) are as follows: Lumbar Spine L1 to L3: BMD: 1.107 g/cm2. T-score: 0.8. Z-score: 2.9. Neck Left: BMD: 0.609 g/cm2. T-score: -2.2. Z-score: -0.3. Right: BMD: 0.586 g/cm2. T-score: -2.4. Z-score: -0.5. Total Left: BMD: 0.665 g/cm2. T-score: -2.3. Z-score: -0.7. Right: BMD: 0.686 g/cm2. T-score: -2.1. Z-score: -0.6. IMPRESSION: Osteopenia. FRAX 10-year Fracture Risk Major Osteoporotic Fracture: 13% Hip Fracture: 3.1% Reported Risk Factors: [place] () Neck BMD = 0.586, BMI = 21.6 ELSIE TORRES M.D. Diagnostic Radiologist [email or web address] CHACHO/[email or web address] D& Transcribed: 1:[address]/Dictated by: Elsie Torres MD @ 05/23/2023 11:56:00 AM Signed by:Jacki Torres MD @05/23/2023 3:03:58 PM (Electronic Signature)
== END 2023-05-22 14:08 | disposition home or self-care (01) ==
LOC: RAD 14:08
PROVIDERS: PCP Internal Medicine; Visit Provider Internal Medicine
DX: M85.88 Other specified disorders of bone density and structure, other site (principal)
CPT/HCPCS: 77080

== ENCOUNTER 2023-08-28 09:32 | Outpatient (CLI) | payer MEDICARE, SELFPAY ==
--- OUTSIDE RECORDS SUMMARY | 2023-09-17 05:54 | XMS_ITS | Clinical Summary ---
Author Organization [facility] Address [address], [place] [address] Care Team Providers Care Pumper Gauger Name Role Phone Needs Pcp, Assignment Primary Care Provider Source Comments You are receiving this document as you are listed as the primary care provider,follow-up provider, or the patient has been referred to you for consultation.This is in compliance with the Medicare andOhio[facility] Hospitalca[facility] EHR Incentive Program,which states Providers who transition their patient to another setting of careor provider of care or refers their patient to another provider of care shouldprovide summary care record for each transition of care or referral. [facility] Active Allergy Reactions Criticality Noted Date Comments Sulfa Antibiotics Headache 09/21/2021 Medications Medication Sig Dispensed Refills Start Date End Date Status levothyroxine (SYNTHROID) 50 MCG tablet Take 1 Tablet (50 mcg) by mouth daily. 07/07/2021 Active valACYclovir (VALTREX) 1 g tablet Take 4 Tablets (4,000 mg) by mouth Daily and as needed. 04/05/2021 Active atenolol (TENORMIN) 100 MG tablet Take 1 Tablet (100 mg) by mouth daily. 07/29/2021 Active tretinoin (RETIN-A) 0.025 % cream Apply to affected area face q pm to treat acne and clogged pores 45 g 11 07/22/2022 Active Active Problems No known active problems Encounters Date Type Department Care Team Description 07/24/2023 10:30 AM CDT Office Visit [facility] [address] [facility], [facility] [address] [place] [address] Odessa Velasco MD History of nonmelanoma skin cancer (Primary Dx); Multiple benign nevi; Actinic keratosis; Lentigo; Seborrheic keratosis; Notalgia paresthetica; Cuellar angioma; Scar conditions and fibrosis of skin; Beau's lines of nails; Neoplasm of skin (HRC); Spider veins of both lower extremities from Last 3 Months Social History Tobacco Use Types Packs/Day Years Used Date Smoking Tobacco: Never Assessed Sex and Gender Information Value Date Recorded Sex Assigned at Not on file Gender Identity Not on file Sexual Orientation Not on file Plan of Treatment Upcoming Encounters Date Type Department Care Team (Late st Contact Info) Description 01/20/2024 10:45 AM CDT Appointment [facility] [address], [place] [address] [place] [address] [place] [address] [place], [place] [address] 07/27/2024 10:30 AM CDT Appointment [facility] [address], [place] [address] [place] [address] [place] [address] [place], [place] [address] Health Maintenance Due Date Last Done Comments Colon Cancer Screening Plan Due 1950 Hep C Screening (Preventive Services) 1950 Cholesterol 1997 Medicare Annual Wellness Visit 11/05/2018 11/05/2017 COVID-19 Vaccine ( season) 2022 12/24/2021, 07/19/2021, 12/23/2020, Additional history exists Mammogram 01/17/2023 01/17/2022, 11/30, 10/19/2019, Additional history exists Influenza (Season Ended) 2023 022, 12/23/2020, 12/30/2019, Additional history exists DTaP/Tdap/Td (3 - Tdap) 12/29/2029 12/30/19 20, 12/07/2008, 11/26/2001 Dexa Completed 07/17/2017 Zoster/Shingles Completed 08/07/2017, 0306/2017, 09/04/2011 Pneumococcal 65+ Yrs Completed 01/19/2019, 11/06/19 18 HepA Aged Out No longer eligi ble based on patient's age to complete this topic HepB Aged Out No longer eligi ble based on patient's age to complete this topic Hib Aged Out No longer eligi ble based on patient's age to complete this topic IPV (Polio) Aged Out No longer eligi ble based on patient's age to complete this topic MCV4 Aged Out No longer eligi ble based on patient's age to complete this topic Procedures Procedure Name Priority Date/Time Associated Diagnosis Comments EPIDERMAL / DERMAL SHAVING Routine 07/24/2023 10:57 AM CDT Neoplasm of skin (HRC) EPIDERMAL / DERMAL SHAVING Routine 07/24/2023 10:57 AM CDT Neoplasm of skin (HRC) SURGICAL PATHOLOGY, DERMATOLOGY Routine 07/24/2023 10:57 AM CDT Neoplasm of skin (HRC) CRYOTHERAPY SKIN LESION Routine 07/24/2023 10:45 AM CDT Actinic keratosis MM MAMMOGRAM SCREENING BILAT W 3D MAIEN W CAD Routine 01/17/2022 3:11 PM CDT DXA BONE DENSITY SPINE/HIP/FOREARM Routine 07/17/2017 9:37 AM CDT from Last 3 Months or Most Recently Relevant to Health Maintenance Results * Shave removal (No CPT) (07/24/2023 10:57 AM CDT) Only the most recent of2 resultswithin the time period is included. Narrative EXTERNAL RESULTS - 07/24/2023 10:57 AM CDT Instrument used: flexible razor blade ?? Odessa Velasco MD DERM PROCEDURE ORDER MANAS EXTERNAL RESULTS * Surgical Path, Dermatology (07/24/2023 10:57 AM CDT) Case Report Surgical Pathology Report ? Case: [id number] ? Authorizing Provider: ??Odessa Velasco, ?Collected: ? 07/24/2023 1057 ? Ordering Location: ? [facility] ?Received: ?07/25/2023 0730 ? Pathologist: ? Hawa, Luis Bartholomew, ? MD ? Specimens: ?? A) - Skin, Right Submandibular Area ? B) - Skin, Right Upper Back ? 07/31/2023 2:57 PM CDT [facility] FINAL DIAGNOSIS A. Skin, Right Submandibular Area, shave: - Seborrheic keratosis, inflamed. B. Skin, Right Upper Back, shave: - Neurofibroma 07/31/2023 2:57 PM CDT [facility] Clinical Information A: Clinical Impression: Irritated nevus B: Clinical Impression: Irritated nevus 07/31/2023 2:57 PM CDT [facility] Microscopic Description Microscopic examination is performed. 07/31/2023 2:57 PM CDT [facility] Technical Information A portion of the [place] [address]. 07/31/2023 2:57 PM CDT [facility] Gross Description A: Received in formalin, labeled with the patient's name and Skin, Right Submandibular Area is a 4 x 3 x 1 mm shave of skin. The specimen is marked with purple ink, bisected, and submitted entirely in one cassette. B: Received in formalin, labeled with the patient's name and Skin, Right Upper Back is a 7 x 6 x 1 mm shave of skin. The specimen is marked with black ink, bisected, and submitted entirely in one cassette. DS 07/31/2023 2:57 PM CDT [facility] Embedded Images 07/31/2023 2:57 PM CDT [facility] Skin (Skin) 07/24/2023 10:5 7 AM CDT 07/25/2023 7:30 AM CDT Comment:Clinical Impression: Irritated nevus Skin structure (body structure) (Skin) 07/24/2023 10:57 AM CDT 07/25/2023 7:30 AM CDT Comment:Clinical Impression: Irritated nevus Odessa Velasco MD LAB PATHOLOGY Performing Organization Address City/[facility]/ZIP Co de Phone Number [facility] [address] DER[facility]Y [facility] * Cryotherapy, skin lesion (No CPT) (07/24/2023 10:45 AM CDT) Odessa Velasco MD DERM PROCEDURE ORDER MANAS Performing Organization Address City/[facility] Co de Phone Number EXTERNAL RESULTS from Last 3 Months or Most Recently Relevant to Health Maintenance Care Teams Pumper Gauger Relationship Specialty Start Date End Date Needs Pcp, [place], [place] [phone] PCP - General 03/08/22
--- OUTSIDE RECORDS SUMMARY | 2023-09-17 05:54 | XMS_ITS | Referral Summary ---
Author Organization [facility] Address [address] [place] [id number] Care Team Providers Care Wire Straightener Name Role Phone Kike Qureshi M.D. Primary Care Provider Source Comments Patient records contain information from all sites at [facility]. For routine questions regarding patient records, call [phone] during business hours, M-F 8:00 AM - 5:00 PM Central Time. Record requests for emergency care only can be directed to [phone] at any time.[facility] Encounters Date Type Department Care Team Description 07/01/2023 Orders Only [facility] PCP [facility] Kike Qureshi M.D. from Last 3 Months Allergies Active Allergy Reactions Criticality Noted Date Comments Azithromycin Other (see comments) 10/26/2008 Upset stomach Cefprozil Other (see comments) 09/13/2010 Has tolerated zosyn, augmentin, and keflex House Dust Mite Other (see comments) Low 08/30/2011 Gluten Other (see comments) 03/03/2020 Unable to digest Lactose GI intolerance Medium 12/07/2017 Diarrhea Spironolactone Other (see comments) 10/24/2021 hyponatremia Sulfa (Sulfonamide Antibiotics) Other (see comments),Headache 10/26/2008 Medications Medication Sig Dispensed Refills Start Date End Date Status cetirizine (ZyrTEC) 10 mg tablet Take 1 tablet by mouth at bedtime. 03/12/2016 Active carboxymethylcel lulose (REFRESH TEARS) 0.5 % ophthalmic solution Administer 1 drop into both eyes at bedtime. Active diclofenac sodium (VOLTAREN) 1 % gel Apply 2 g topically 4 (four) times a day as needed (joint pain). Apply to hands/neck as needed for pain. 03/29/2022 Active fluticasone propionate (FLONASE) 50 mcg/actuation nasal spray Administer 2 sprays into each nostril daily as needed for allergies or rhinitis. 03/29/2022 Active valACYclovir (VALTREX) 1000 mg tablet Take 2 tabs PO at onset and then take 2 tabs 12 hours later 12 tablet 3 04/08/2022 Active mupirocin (BACTROBAN) 2 % ointment Apply 1 Application topically 3 (three) times a day. 22 g 11/12/2022 Active tretinoin (RETIN-A) 0.025 % cream Apply to affected area face q pm to treat acne and clogged pores 07/22/2022 Active atenoloL (TENORMIN) 100 mg tablet Take 1 tablet (100 mg total) by mouth daily. 90 tablet 3 11/26/2022 Active levothyroxine (SYNTHROID, LEVOTHROID) 50 mcg tablet Take 1 tablet (50 mcg total) by mouth every morning before breakfast. 90 tablet 3 12/17/2022 Active oxyCODONE (ROXICODONE) 5 mg immediate release tablet Take 0.5-1 tablets (2.5-5 mg total) by mouth every 4 (four) to 6 (six) hours as needed for pain. Max Daily Dose: 6 tabs per day. Discontinue as soon as possible. 42 tablet 12/17/2022 Active triamcinolone (KENALOG) 0.5 % cream Apply 1 application topically 2 (two) times a day as needed (hemorrhoids). 15 g 3 12/30/2019 1 Discontinued metoprolol succinate (TOPROL-XL) 100 mg 24 hr tablet Take 1 tablet (100 mg total) by mouth daily. 90 tablet 3 07/19/2021 2 Discontinued Active Problems Problem Noted Date Diagnosed Date Hypertension White Coat 11/26/2022 Carpal Tunnel Syndrome Right 05/27/2022 Overview: Added automatically from request for surgery [id number] Diverticulitis Colon 03/02/2022 Diverticulitis 03/02/2022 COVID-19 Infection 01/02/2022 Membrane Macula Epiretinal Right 03/16/2020 Hyperlipidemia Mixed 10/13/2018 Overview: Much improved as of 01/16 with weight loss and diet changes. No meds. Cancer Skin Basal Cell Personal History 10/14/19 19 Hypothyroidism 03/13/2017 Overview: Synthroid started 02/14 Last Assessment & Plan: Follow-up TSH today. Adjust as needed. Irritable Bowel Syndrome With Diarrhea 7 Overview: Viberzi trial in 02/14 - didn't help. Last Assessment & Plan: Her plan is to return to the half dose Viberzi 2 to 3 times a week. She will portal a message to me regarding how this goes. Menopausal And Female Climacteric States 017 Last Assessment & Plan: Continue gabapentin. 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 Followed in [place]. MRI and Mammo six months apart Mother with stage IV ovarian cancer Last Assessment & Plan: Ordered her mammogram. Breast Cancer Susceptibility Gene Mutation Famil y History 01/10/2016 Cancer Ovary Family History 01/10/2016 Overview: 90-year-old mother diagnosed with stage IV ovarian cancer in the summer of 2017 - in Oct 2017 Hypertension Essential Primary 10/19/2015 Overview: toprol xl 50mg daily Last Assessment & Plan: Stable, well managed. No changes. Gastroesophageal Reflux Disease NOS 03/11/2011 Overview: PPI therapy. Primary Osteoarthritis First Carpometacarpal Joints Bilateral Overview: OT evaluated; this helped Resolved Problems Problem Noted Date Diagnosed Date Resolved Date Intraocular Lens Implant Status Post 03/16/2020 01/08/2021 Keratosis Actinic 10/13/2018 01/08/2021 PreDiabetes 10/13/2018 01/13/2019 Cataract Senile Nuclear Sclerosis Right 11/11/2017 10/13/2018 Overview: Added automatically from request for surgery [id number] Cataract Senile Nuclear Sclerosis Left 11/11/2017 10/13/2018 Overview: Added automatically from request for surgery [id number] Hemorrhoids 03/13/2017 12/24/2019 Overview: Topical steroids - nonbleeding Last Assessment & Plan: Patient would like to pursue surgical evaluation, but will wait until she has reached Medicare benefit age Screening Mammogram Average Risk Patient 03/13/2017 03/13/2017 Hay Fever 03/11/2011 12/24/2019 Overview: Zyrtec, Flonase. Immunizations Name Administration Dates Next Due H1N1 Inj 03/17/2009 HZV (ZOSTAVAX) 09/04/2011 HepB Adult 02/16/1999,07/20/1998,04/06/1998 Influenza (IM) Preservative Free 12/07/2008 Influenza high dose QV(65 ye ars or older) (PF) 12/30/2019 Influenza, Injectable, Quadrivalent 01/02/2015 Influenza, Quadrivalent, Adj uvanted, Preservative Free 02/04/2022,12/23/2020 Influenza, Seasonal, Injectable 11/25/2012,11/26,2010 Influenza, Unspecified 01/21/2017,2015,12/29/2014,2013,2011,01/09/2011,01/12/2010 PCV13 11/05/2017 PPSV23 01/19/2019 RZV (SHINGRIX) 08/07/2017,06/01/2017 SARS-COV-2 (COVID-19) - MODE RNA BIVALENT(Discontinued) 12/24/2021 SARS-COV-2 (COVID-19) - PFIZ ER (Discontinued)(12 years or older) 05/20/2020,04/28/2020 SARS-COV-2 (COVID-19) - PFIZ ER BIVALENT TS(Discontinued)(12 YEARS OR OLDER) 11/12/2022 SARS-COV-2 (COVID-19) - PFIZ ER TS(Discontinued)(12 years or older) 07/19/2021 Td (Adult), adsorbed 11/26/2001 Td Preservative Free (TENIVA C, DECAVAC) 12/30/2019 Tdap 12/07/2008 influenza high dose (65 year s or older) (PF) 01/19/2019,01/20/2018 influenza vaccine quad (FLUZONE/FLUARIX) (6 months and older)(PF) 01/21/2017,01/11/2016 Social History Tobacco Use Types Packs/Day Years Used Date Smoking Tobacco: Never Passive Smoke Exposure: Past Smokeless Tobacco: Never Tobacco Cessation:Counseling Given: Not Answered Comments:Never smoked, never will. Alcohol Use Standard Drinks/Week Comments Yes 5 (1 standard drink = 0.6 oz pur e alcohol) Humiliation, Afraid, Rape, and Kick questionnair e Answer Date Recorded Within the last year, have y ou been afraid of your partner or ex-partner? No 03/10/2022 Within the last year, have y ou been humiliated or emotionally abused in other ways by your partner or ex-partner? No Within the last year, have y ou been kicked, hit, slapped, or otherwise physically hurt by your partner or ex-partner? No 03/10/2022 Within the last year, have y ou been raped or forced to have any kind of sexual activity by your partner or ex-partner? No 03/10/2022 Social Connection and Isolat ion Panel [NHANES] Answer Date Recorded In a typical week, how many times do you talk on the phone with family, friends, or neighbors? More than three times a week 03/10/2022 How often do you get togethe r with friends or relatives? Three times a week 03/10/2022 How often do you attend chur or islam services? More than 4 times per year 03/10/2022 Do you belong to any clubs o r organizations such as tenriism groups, unions, fraternal or athletic groups, or school groups? Yes 03/10/2022 How often do you attend meet ings of the clubs or organizations you belong to? More than 4 times per year 03/10/2022 Are you , , di vorced, , never , or living with a partner? 03/10/2022 AUDIT-C Answer Date Recorded Q1: How often do you have a drink containing alcohol? 4 or more times a week 03/10/2022 Q2: How many drinks containi ng alcohol do you have on a typical day when you are drinking? 1 or 2 Q3: How often do you have si x or more drinks on one occasion? Never 03/10/2022 Overall Financial Resource Strain (CARDIA) Answe r Date Recorded How hard is it for you to pa y for the very basics like food, housing, medical care, and heating? Not hard at all 03/10/2022 PHQ-2 Answer Date Recorded PHQ-2 Score 0 11/11/2022 [facility] Occupational Stress Questionnaire Answer Date Recorded Do you feel stress - tense, restless, nervous, or anxious, or unable to sleep at night because your mind is troubled all the time - these days? Only a little 03/10/2022 Exercise Vital Sign Answer Date Recorde d On average, how many days pe r week do you engage in moderate to strenuous exercise (like a brisk walk)? 4 days 03/10/2022 On average, how many minutes do you engage in exercise at this level? 50 min 03/10/2022 Hunger Vital Sign Answer Date Recorded Within the past 12 months, y ou worried that your food would run out before you got the money to buy more. Never true 03/10/20 22 Within the past 12 months, t he food you bought just didn't last and you didn't have money to get more. Never true 03/10/2022 PRAPARE - Transportation Answer Date Re corded In the past 12 months, has l ack of transportation kept you from medical appointments or from getting medications? No 02/28 In the past 12 months, has l ack of transportation kept you from meetings, work, or from getting things needed for daily living? No 03/10/2022 Housing Stability Vital Sign Answer Luis e Recorded In the last 12 months, was t here a time when you were not able to pay the mortgage or rent on time? No 03/10/2022 In the last 12 months, how many places have you lived? 1 03/10/2022 In the last 12 months, was t here a time when you did not have a steady place to sleep or slept in a penitentiary (including now)? No 03/10/2022 Nutrition Answer Date Recorded Nutrition: EVOO Fat Source No 03/10 On average, how many serving s of fruits and vegetables do you eat per day (serving size is equal to 1 cup or approximately the size of a tennis ball)? 4-5 03/10/2022 Dental Answer Date Recorded Dental: Regular Dentist Yes 03/10/20 Employment Answer Date Recorded Employment status Retired 03/10/2022 Education Answer Date Recorded What is the highest level of school you have completed or the highest degree you have received? 12th grade 01/26/2019 Sex and Gender Information Value Date Recorded Sex Assigned at Female 12/03/2017 1:56 PM CDT Gender Identity Female 12/03/2017 1:56 PM CDT Sexual Orientation Straight 12/03/2017 1: 56 PM CDT Last Filed Vital Signs Vital Sign Reading Time Taken Comments Blood Pressure 192/76 11/26/2022 11:48 AM CDT Pulse 53 11/26/2022 11:18 AM CDT Temperature 36.3 ??C (97.3 ??F) 11/26/2022 11:18 AM C DT Respiratory Rate 16 11/12/2022 9:07 AM CDT Oxygen Saturation 97% 06/27/2022 8:45 AM CDT Inhaled Oxygen Concentration - - Weight 55.8 kg (123 lb 0.3 oz) 11/26/2022 11:18 AM CDT Height 160 cm (5' 2.99) 11/12/2022 9:07 AM CDT Body Mass Index 21.8 11/12/2022 9:07 AM CDT Plan of Treatment Not on file Medical Devices Implanted Type Area Metallurgical Engineering Teacher Device Identifier Shelf Expiration Date Model / Serial / Lot Hardware E.G. Pins/Screws/Ro ds Hardware e.g. pins/screws/ rods Foot Description:Staple in each f oot Sympfony Implanted:Qty: 1 on 12/10/2017 by Jericho Hatfield M.D. at [facility] Ocular Lens Right: Eye [employer]ang 06/09/2022 [id number] / [id number] / N/A [employer]ecnis Multifocal Iol Implanted:Qty: 1 on 12/24/2017 by Jericho Hatfield M.D. at [facility] Ocular Lens [employer] 09/21/2021 [id number] / [id number] / Procedures Procedure Name Priority Date/Time Associated Diagnosis Comments BASIC METABOLIC PANEL, S/P Routine 11/12/2022 10:08 AM CDT Preoperative Exam THYROID-STIMULATING HORMONE-SENSITIVE (S-TSH) Routine 11/12/2022 10:08 AM CDT Hypothyroidism COLONOSCOPY Routine 05/07/2022 1:21 PM HEAD TRACK COACH Diverticulitis LIPID PANEL, S Routine 02/28/2022 7:58 AM HEAD TRACK COACH Hyperlipidemia Mixed COLOGUARD Routine 01/28/2022 9:40 AM CDT Screening Cancer Colon BI BREAST SCREENING BILATERAL WITH TOMOSYNTHESIS RAD - Routine (most inpatients and all outpatients) 01/17/2022 3:11 PM CDT Screening Mammogram Breast Cancer HCV AB SCRN W/REFLEX TO HCV PCR, S Routine 10/13/2018 10:00 AM CDT Screening Examination For Viral Disease from Last 3 Months or Most Recently Relevant to Health Maintenance Results * S-TSH (Thyroid-Stimulating Hormone - Sensitive) (11/12/2022 10:08 AM CDT) TSH, Sensitive 1.1 0.3 - 4.2 mIU/L 11/12/2022 10:47 AM CDT RDWG Blood (Blood, Venous) 11/12/2022 10:08 AM CDT 11/12/2022 10:10 AM CDT Kike Qureshi M.D. LAB BLOOD ADD-ON [facility] [address] [facility] [facility] [id number], [facility]DW[facility] [place] [address] [facility] [address] * (ABNORMAL) Basic Metabolic Panel (11/12/2022 10:08 AM CDT) Potassium, P 4.5 3.6 - 5.2 mmol/L 11/12/2022 10:39 AM CDT RDWG Sodium, P 134(L) 135 - 145 mmol/L 11/12/2022 10:39 AM CDT RDWG Chloride, P 98 98 - 107 mmol/L 11/12/2022 10:39 AM CDT RDWG Bicarbonate, P 28 22 - 29 mmol/L 11/12/2022 10:39 AM CDT RDW[facility] Anion Gap, P 8 7 - 15 11/12/2022 10:39 AM CDT RDWG BUN (Blood Urea Nitrogen), P 16 6 - 21 mg/dL 11/12/2022 10:39 AM CDT RDWG Creatinine 0.74 0.59 - 1.04 mg/dL 11/12/2022 10:39 AM CDT RDWG Estimated GFR (eGFR) 88 >=60 mL/min/BSA 11/12/2022 10:39 AM CDT RDWG Comment: Estimated GFR calculated using the 2020 CKD_EPI creatinine equation. Calcium, Total, P 9.5 8.8 - 10.2 mg/dL 11/12/2022 10:39 AM CDT RDWG Glucose, P 97 70 - 140 mg/dL 11/12/2022 10:39 AM CDT RDWG Blood (Blood, Venous) 11/12/2022 10:08 AM CDT 11/12/2022 10:10 AM CDT Kike Qureshi M.D. LAB BLOOD ADD-ON [facility] [address] [place] [address], [facility] RDWG [facility] [place] [address], [place] [address] * (ABNORMAL) Lipid Panel (02/28/2022 7:58 AM HEAD TRACK COACH) Triglycerides 53 mg/dL 02/28/2022 8:18 AM HEAD TRACK COACH CNFL Comment: ----REFERENCE VALUE---- Normal: <150 mg/dL Borderline High: 150-199 mg/dL High: 200-499 mg/dL Very High: > or =500 mg/dL Cholesterol, Total 235(H) mg/dL 2021 8:18 AM HEAD TRACK COACH CNFL Comment: ----REFERENCE VALUE---- Desirable: < 200 mg/dL Borderline High: 200 - 239 mg/dL High: > or = 240 mg/dL Cholesterol, LDL, Calculated 138(H) mg/dL 02/28/2022 8:18 AM HEAD TRACK COACH CNFL Comment: ----REFERENCE VALUE---- Desirable: <100 mg/dL Above Desirable: 100-129 mg/dL Borderline High: 130-159 mg/dL High: 160-189 mg/dL Very High: >=190 mg/dL ----ADDITIONAL INFORMATION---- LDL cholesterol calculated using the Sommers/NIH equation. Cholesterol, HDL 88 >=50 mg/dL 02/29/20 8:18 AM HEAD TRACK COACH CNFL Cholesterol, Non-HDL, Calculated 147 mg/dL 02/28/2022 8:18 AM HEAD TRACK COACH CNFL Comment: ----REFERENCE VALUE---- Desirable: <130 mg/dL Above Desirable: 130-159 mg/dL Borderline High: 160-189 mg/dL High: 190-219 mg/dL Very High: > or =220 mg/dL Fasting (8 HR or more) yes 02/28/2022 8:00 AM HEAD TRACK COACH CNFL Blood (Blood, Venous) 02/28/2022 7:58 AM HEAD TRACK COACH 02/28/2022 8:00 AM HEAD TRACK COACH Ginette Grullon M.D. LAB BLOOD ADD-ON [facility] [address] [place] [id number], [facility] CNFL [facility] in [address] [address] * Cologuard-Sent Out Lab (01/28/2022 9:40 AM CDT) Result Negative Negative 02/01/2022 10:32 AM CDT EXLI Comment: NEGATIVE TEST RESULT. A negative Cologuard result indicates a low likelihood that a colorectal cancer (CRC) or advanced adenoma (adenomatous polyps with more advanced pre-malignant features) ??is present. The chance that a person with a negative Cologuard test has a colorectal cancer is less than 1 in 1500 (negative predictive value >99.9%) or has an ??advanced adenoma is less than ??5.3% (negative predictive value 94.7%). These data are based on a prospective cross-sectional study of 10,000 individuals at average risk for colorectal cancer who were screened with both Cologuard and colonoscopy. (Sherman Johnson. et al, N Engl J Med 2014;370(14):4630-2476) The normal value (reference range) for this assay is negative. COLOGUARD RE-SCREENING RECOMMENDATION: Periodic colorectal cancer screening is an important part of preventive healthcare for asymptomatic individuals at average risk for colorectal cancer. ??Following a negative Cologuard result, the [place] [employer] Society and U.S. Multi-Society Task Force screening guidelines recommend a Cologuard re-screening interval of 3 years. References: [place] [employer] Guideline for Colorectal Cancer Screening: https://www.cancer.org/cancer/lpusw-kqhgmx-mwmjvc/detection- diagnosis-staging/acs-recommendations.html.; Lencho TALBOT, Mariam BELLA, Parag PatelK, Colorectal Cancer Screening: Recommendations for Physicians and Patients from the U.S. Multi-Society Task Force on Colorectal Cancer Screening , Am J Gastroenterology 2017; 112:2510-2435. TEST DESCRIPTION: Composite algorithmic analysis of stool DNA-biomarkers with hemoglobin immunoassay. ?? Quantitative values of individual biomarkers are not reportable and are not associated with individual biomarker result reference ranges. Cologuard is intended for colorectal cancer screening of adults of either sex, 45 years or older, who are at average-risk for colorectal cancer (CRC). Cologuard has been approved for use by the U.S. FDA. The performance of Cologuard was established in a cross sectional study of average-risk adults aged 50-84. Cologuard performance in patients ages 45 to 49 years was estimated by sub-group analysis of near-age groups. Colonoscopies performed for a positive result may find as the most clinically significant lesion: colorectal cancer [4.0%], advanced adenoma (including sessile serrated polyps greater than or equal to 1cm diameter) [20%] or non- advanced adenoma [31%]; or no colorectal neoplasia [45%]. These estimates are derived from a prospective cross-sectional screening study of 10,000 individuals at average risk for colorectal cancer who were screened with both Cologuard and colonoscopy. (Sherman Johnson. et al, N Engl J Med 2014;370(14):3838-9115.) Cologuard may produce a false negative or false positive result (no colorectal cancer or precancerous polyp present at colonoscopy follow up). A negative Cologuard test result does not guarantee the absence of CRC or advanced adenoma (pre-cancer). The current Cologuard screening interval is every 3 years. ([place] [employer] Society and U.S. Multi-Society Task Force). Cologuard performance data in a 10,000 patient pivotal study using colonoscopy as the reference method can be accessed at the following location: www.[employer]/results. Additional description of the Cologuard test process, warnings and precautions can be found at www.[employer].com. Stool (Stool) 01/28/2022 9:4 0 AM CDT 01/29/2022 4:27 PM CDT Ginette Grullon M.D. LAB BODY FLUIDS AND STOOLS ORDERABLES [facility] [address] [place] [address] EXLI [facility] [address] [place] [address], [address] [place] [address] * BI Breast Screening Bilateral with Tomosynthesis (01/17/2022 3:11 PM CDT) Anatomical Region Laterality Modality Breast, Breast Imaging RST L OS, Breast Imaging ARZ LOS, Breast Imaging FLA LOS Bilateral Mammography 01/17/2022 3:58 PM CDT Impressions 01/17/2022 4:00 PM CDT Negative. RECOMMENDATION: ??Annual Screening Mammogram ASSESSMENT: ??BI-RADS: 1: Negative. Narrative 01/17/2022 4:00 PM CDT EXAM: ??BI BREAST SCREENING BILATERAL WITH TOMOSYNTHESIS Current study was evaluated with a Computer Aided Detection (CAD) system. INDICATION: ??Screening mammogram. COMPARISON: ??Prior exam(s) were available and reviewed for comparison. DENSITY: ??c. The breast(s) are heterogeneously dense, which may obscure small masses. FINDINGS: ??No mammographic findings of malignancy. Procedure Note Ravinder Nunes M.D. - 01/17/2022 EXAM: BI BREAST SCREENING BILATERAL WITH TOMOSYNTHESIS Current study was evaluated with a Computer Aided Detection (CAD) system. INDICATION: Screening mammogram. COMPARISON: Prior exam(s) were available and reviewed for comparison. DENSITY: c. The breast(s) are heterogeneously dense, which may obscuresmall masses. FINDINGS: No mammographic findings of malignancy. IMPRESSION: Negative. RECOMMENDATION: Annual Screening Mammogram ASSESSMENT: BI-RADS: 1: Negative. Ginette Grullon M.D. [facility] BI PROCEDURES * HCV Ab Scrn w/Reflex to HCV PCR, Serum (10/13/2018 10:00 AM CDT) HCV Ab Screen, S Negative Negative 10/14/19 19 3:49 PM CDT Comment: Biotin has been identified by the microbiology soil scientist as a potential interfering substance. ??Higher concentrations of biotin may be found in multivitamins, hair/nail supplements, and workout supplements. ??If the result does not match clinical observations, repeat testing after patient refrains from the use of supplements for at least 12 hours. Blood (Blood, Venous) 10/13/2018 10:00 AM CDT 10/13/2018 2:01 PM CDT Narrative [facility] - 10/13/2018 3:49 PM CDT Specimen Information: Specimen ID: [id number] Specimen Type: Blood Specimen Collection Start Date: 10/13/2018 10:00 AM Specimen Received Date: 10/13/2018 ??2:01 PM Specimen ID: [id number] Specimen Type: Blood Specimen Collection Start Date: 10/13/2018 10:00 AM Specimen Received Date: 10/13/2018 ??2:01 PM Maria Guadalupe Thornton M.D. LAB MICROBIOLOGY - BLOOD ORDERABLES [facility] [address] [place] [address] from Last 3 Months or Most Recently Relevant to Health Maintenance Advance Directives For more information, please contact: [phone] * Full Code (Latest Code Status on File) Date Activated Date Inactivated Comments 03/26/2022 4:28 PM 03/29/2022 12:08 PM Question Answer Comments Full Code: Discussed * Full Code Date Activated Date Inactivated Comments 03/02/2022 1:32 PM 03/04/2022 7:23 PM Question Answer Comments Full Code: Not Discussed Due to: Patient not available * Full Code Date Activated Date Inactivated Comments 12/10/2017 7:59 AM 12/10/2017 10:52 AM Question Answer Comments Full Code: Discussed Care Teams Wire Straightener Relationship Specialty Start Date End Date Kike Qureshi M.D. [address] [place] [id number] PCP - General 07/08/22
--- OUTSIDE RECORDS SUMMARY | 2023-09-17 05:54 | XMS_ITS | Encounter Summary ---
Author Organization [facility] Address [address] [place] [address] Care Team Providers Care Residential Green Building Designer Name Role Phone Kike Qureshi M.D. Primary Care Provider [phone]- [phone] Reason for Referral * Outpatient (Routine) - Authorized Specialty Diagnoses / Procedures Referred By Contcecy t Referred To Contact Kike Qureshi M.D. [address] [place] [address] [facility] Referral ID Status Reason Start Date Expiration Date V isits Requested Visits Authorized [id number] Authorized 07/01/2023 12/30/2024 1 1 Scheduling Instructions Nurse AWV Do not schedule prior to due date to ensure insurance coverage Visit: Medicare Annual Wellness Never done. Encounter Details Date Type Department Care Team (Late st Contact Info) Description 07/01/2023 [facility] Only [facility] [address] [place] [address] Social History Tobacco Use Types Packs/Day Years Used Date Smoking Tobacco: Never Passive Smoke Exposure: Past Smokeless Tobacco: Never Comments:Never smoked, never will. Alcohol Use Standard [...] 03/10/2022 How often do you attend chur ch or samaritan services? More than 4 times per year 03/10/2022 Do you belong to any clubs o r organizations such as mu-ism groups, unions, fraternal or athletic groups, or [...] when you are drinking? 1 or 2 2 Q3: How often do you have si x or more drinks on one occasion? Never 03/10/2022 Overall Financial Resource Strain (CARDIA) Answe r Date Recorded How hard is it for you to pa y for the very basics like food, housing, medical care, and heating? Not hard at all 03/10/2022 PHQ-2 Answer Date Recorded PHQ-2 Score 0 11/11/2022 [facility] - Occupational Stress Questionnaire Answer Date Recorded [...] money to buy more. Never true 03/10/20 Within the past 12 months, t he [...] place to sleep or slept in a detention (including now)? No 03/10/2022 Nutrition Answer Date [...] Orientation Straight 12/03/2017 1: 56 PM CDT documented as of this encounter Plan of Treatment Scheduled Referrals Name Type Priority Associated Diagnoses Orde r Schedule Primary Care nurse visit (clinic) - [facility] Region; Medicare Annual Wellness Outpatient Referral Routine Expected: 07/29/2023, Expires: 12/28/2023 documented as of this encounter Visit Diagnoses Not on filedocumented in this encounter Additional Health Concerns Assessment Noted Time PHQ-9 Depression Total Score: 0 11/11/19 13 11:38 AM CDT documented as of this encounter Care Teams Residential Green Building Designer Relationship Specialty Start Date End Date Kike Qureshi M.D. [address] [place] [address] PCP - General 07/08/22 documented as of this encounter
--- OUTSIDE RECORDS SUMMARY | 2023-09-17 05:54 | XMS_ITS | Clinical Summary ---
Author Organization [facility] Address [place], [place] [address] Care Team Providers Care Applique Sewer Name Role Phone Nicol Crocker MD Primary Care Provider [phone]- [phone] Allergies Active Allergy Reactions Criticality Noted Date Comments Sulfa (Sulfonamide Antibiotics) Headache 02/28 Medications No known medications Active Problems No known active problems Social History Tobacco Use Types Packs/Day Years Used Date Smoking Tobacco: Never Assessed Sex and Gender Information Value Date Recorded Sex Assigned at Not on file Gender Identity Not on file Sexual Orientation Not on file Obstetrics History Last Filed Vital Signs Vital Sign Reading Time Taken Comments Blood Pressure - - Pulse - - Temperature - - Respiratory Rate 14 04/10/2021 10:25 AM CHIEF ENGINEER Oxygen Saturation - - Inhaled Oxygen Concentration - - Weight - - Height - - Body Mass Index - - Plan of Treatment Health Maintenance Due Date Last Done Comments Tdap 11/28/1963 Depression screening for age 12+ 1964 BMI (ht and wt on same day) for age 18+ 1970 Hepatitis C screening for ag e 18-79 1970 Tetanus booster 1972 Colonoscopy through age 75 1997 Lipids for age 45-75 1997 Mammogram for age 45-75 1997 Zoster (shingles) series for age 50+ (1 of 2) 2002 DEXA/DXA scan for age 65+ 2017 Medicare Wellness for age 65+ 2017 Pneumococcal series for age 65+ (1 of 1 - PCV) 2017 COVID-19 vaccine series (2022-24 season) 2023 11/12/2022, 12/24/2021, 07/19/2021, Additional history exists Influenza for age 65+ 11/30/2023 Care Teams Applique Sewer Relationship Specialty Start Date End Date Nicol Crocker MD [address] [place] [address] PCP - General Family Practice 03/11/23
--- OUTSIDE RECORDS SUMMARY | 2023-09-17 05:54 | XMS_ITS | Clinical Summary ---
Author Organization [facility] Address [address] [place] [address] Care Team Providers Care Spray Gun Striper Name Role Phone Kike Qureshi M.D. Primary Care Provider Source Comments Patient records contain information from all sites at [facility]. For routine questions regarding patient records, call [phone] during business hours, M-F 8:00 AM - 5:00 PM Central Time. Record requests for emergency care only can be directed to [phone] at any time.[facility] Allergies Active Allergy Reactions Criticality Noted Date [...] Overview: Added automatically from request for surgery [id number] Diverticulitis Colon 03/02/2022 Diverticulitis 03/02/2022 COVID-19 Infection [...] Mutation 03/20/2016 Overview: BRCA positive. Followed in [place]. MRI and Mammo six months apart Mother [...] Overview: Added automatically from request for surgery [id number] Cataract Senile Nuclear Sclerosis Left 11/11/2017 10/13/2018 Overview: Added automatically from request for surgery [id number] Hemorrhoids 03/13/2017 12/24/2019 Overview: Topical steroids - nonbleeding Last Assessment & Plan: Patient would like to pursue surgical evaluation, but will wait until she has reached Medicare benefit age Screening Mammogram Average Risk Patient 03/13/2017 03/13/2017 Hay Fever 03/11/2011 12/24/2019 Overview: Derek Khan. Encounters Date Type Department Care Team Description 07/01/2023 Orders Only [facility] Kike Qureshi M.D. from Last 3 Months Immunizations Name Administration Dates Next Due H1N1 [...] quad (FLUZONE/FLUARIX) (6 months and older)(PF) 01/21/2017,01/11/2016 Family History Medical History Relation Name Comments Cardiac arrhythmia Brother Brennen Hearing loss Brother Brennen Hypertension Brother Brennen Prostate cancer Brother Brennen BRCA2 Diabetes Daughter 1 Vero Skin cancer Daughter 2 Cataracts Father Sorensen Macular degeneration Father Sorensen Prostate cancer Father Sorensen Coronary artery disease Grandfather Dementia Grandfather Arthritis Mother Kat Cataracts Mother Kat Hypertension Mother Kat Hypothyroidism Mother Kat Macular degeneration Mother Kat Osteoporosis Mother Kat Ovarian cancer Mother Kat Rheum arthritis Mother Kat Thyroid Ca Mother Kat Thyroid cancer Mother Kat Hypertension Sister 1 Valerie Ovarian cancer Sister 1 Valerie BRCA2 Rectal cancer Sister 1 Valerie Hypertension Sister 2 Yasmeen Macular degeneration Uncle Glaucoma Neg Hx Relation Name Status Comments Brother Brennen Daughter 1 Vero Daughter 2 Father Sorensen Grandfather Mother Kat Sister 1 Valerie Sister 2 Yasmeen Uncle Social History Tobacco Use Types Packs/Day Years [...] How often do you attend chur or episcopal services? More than 4 times per year 03/10/2022 Do you belong to any clubs o r organizations such as buddhism groups, unions, fraternal or athletic groups, or [...] Date Recorded PHQ-2 Score 0 11/11/2022 [facility] - Occupational Stress Questionnaire Answer Date Recorded [...] place to sleep or slept in a long-term (including now)? No 03/10/2022 Nutrition Answer Date [...] 11/12/2022 9:07 AM CDT Plan of Treatment Health Maintenance Due Date Last Done Comments CT Colonography 1952 FIT 1950 Visit: Medicare Annual Wellness 1950 COVID-19 Vaccine (2022-05 4 season) 2023 11/12/2022, 12/24/2021, 07/19/2021, Additional history exists Mammogram 01/17/2023 01/17/2022, 12/30, 12/21/2020, Additional history exists Office Visit for Blood Press ure Check / Re-check 02/26/2023 11/26/2022 Lipid (Cholesterol) Screening 02/28/2023, 01/10/2021, 12/30/2019, Additional history exists Depression Screening (Annual PHQ-2) 03/31/2023 Fall Risk Screen (Annual) 03/31/2023 Thyroid Stimulating Hormone (TSH) test for thyroid function 11/13/2023 11/12/2022, 07/10/2022, 07/19/2021, Additional history exists Visit: Chronic Disease, age 18+ 2023 Cologuard 01/28/2025 01/28/2022, 12/30, 11/09/2015, Additional history exists Fasting Glucose for Diabetes Screening 11/12/2025 11/12/2022, 05/08/2022, 03/27/2022, Additional history exists DTaP,Tdap,and Td Vaccines (3 - Td or Tdap) 12/29/2029 12/30/2019, 12/07/2008, 11/26/2001 Colonoscopy 05/07/2032 05/07/2022, 09/2022, 07/18/2004 Colorectal Cancer Screening 05/07/2032 Hepatitis B Vaccines Completed 02/16/1999, 07/20/1998, 04/06/1998 Hepatitis C Screening Completed 10/13/2018 Pneumococcal vaccine (65+ years) Completed 01/20/20, 11/05/2017 Influenza Vaccine Completed 01/23/2023, , 12/23/2020, Additional history exists Medical Devices Implanted Type Area Professional Services Consultant Device Identifier Shelf Expiration Date Model / Serial / Lot Hardware E.G. Pins/Screws/Ro ds Hardware e.g. pins/screws/ rods Foot Description:Staple in each f oot Sympfony Implanted:Qty: 1 on 12/10/2017 by Jericho Hatfield M.D. at [facility] Ocular Lens Right: Eye [employer]ang 06/09/2022 [id number] / [id number] / N/A Tecnis Multifocal Iol Implanted:Qty: 1 on 12/24/2017 by Jericho Hatfield M.D. at [facility] Ocular Lens [employer] 09/21/2021 [id number] / [id number] / Procedures Procedure Name Priority Date/Time Associated Diagnosis Comments BASIC METABOLIC PANEL, S/P Routine 11/12/2022 10:08 AM CDT Preoperative Exam THYROID-STIMULATING HORMONE-SENSITIVE (S-TSH) Routine 11/12/2022 10:08 AM CDT Hypothyroidism COLONOSCOPY Routine 05/07/2022 1:21 PM MANAGER SWITCH Diverticulitis LIPID PANEL, S Routine 02/28/2022 7:58 AM MANAGER SWITCH Hyperlipidemia Mixed COLOGUARD Routine 01/28/2022 9:40 AM [...] CDT Kike Qureshi M.D. LAB BLOOD ADD-ON [facility] [address] [place] [address], [facility] RDWG [facility] [place] [address] [place] [address] * (ABNORMAL) Basic Metabolic Panel (11/12/2022 10:08 [...] CDT Kike Qureshi M.D. LAB BLOOD ADD-ON [facility] [address] [place] [address], [facility] [place] [address] [place] [address] * (ABNORMAL) Lipid Panel (02/28/2022 7:58 AM MANAGER SWITCH) Triglycerides 53 mg/dL 02/28/2022 8:18 AM MANAGER SWITCH CNFL Comment: ----REFERENCE VALUE---- Normal: <150 mg/dL Borderline High: 150-199 mg/dL High: 200-499 mg/dL Very High: > or =500 mg/dL Cholesterol, Total 235(H) mg/dL 2021 8:18 AM MANAGER SWITCH CNFL Comment: ----REFERENCE VALUE---- Desirable: < 200 mg/dL Borderline High: 200 - 239 mg/dL High: > or = 240 mg/dL Cholesterol, LDL, Calculated 138(H) mg/dL 02/28/2022 8:18 AM MANAGER SWITCH CNFL Comment: ----REFERENCE VALUE---- Desirable: <100 mg/dL Above Desirable: 100-129 mg/dL Borderline High: 130-159 mg/dL High: 160-189 mg/dL Very High: >=190 mg/dL ----ADDITIONAL INFORMATION---- LDL cholesterol calculated using the Sommers/NIH equation. Cholesterol, HDL 88 >=50 mg/dL 02/29/20 8:18 AM MANAGER SWITCH CNFL Cholesterol, Non-HDL, Calculated 147 mg/dL 02/28/2022 8:18 AM MANAGER SWITCH CNFL Comment: ----REFERENCE VALUE---- Desirable: <130 mg/dL Above Desirable: 130-159 mg/dL Borderline High: 160-189 mg/dL High: 190-219 mg/dL Very High: > or =220 mg/dL Fasting (8 HR or more) yes 02/28/2022 8:00 AM MANAGER SWITCH CNFL Blood (Blood, Venous) 02/28/2022 7:58 AM MANAGER SWITCH 02/28/2022 8:00 AM MANAGER SWITCH Ginette Grullon M.D. LAB BLOOD ADD-ON [facility] [address] [place] [address], [facility] CNFL [facility] [place] [address] * Cologuard-Sent Out Lab (01/28/2022 9:40 AM [...] screened with both Cologuard and colonoscopy. (Sherman Shah al, N Engl J Med 2014;370(14):7402-6165) The normal value (reference range) for this assay is negative. COLOGUARD RE-SCREENING RECOMMENDATION: Periodic colorectal cancer screening is an important part of preventive healthcare for asymptomatic individuals at average risk for colorectal cancer. ??Following a negative Cologuard result, the [place] Cancer Society and U.S. Multi-Society Task Force screening guidelines recommend a Cologuard re-screening interval of 3 years. References: [place] [employer] Guideline for Colorectal Cancer Screening: https://www.cancer.org/cancer/sdhms-nmlxam-ymxpkm/detection- diagnosis-staging/acs-recommendations.html.; Lencho TALBOT, Mariam BELLA, Parag GONZALES, Colorectal Cancer Screening: Recommendations for Physicians and Patients from the U.S. Multi-Society Task Force on Colorectal Cancer Screening , Am J Gastroenterology 2017; 112:7239-9154. TEST DESCRIPTION: Composite algorithmic analysis of stool [...] screened with both Cologuard and colonoscopy. (Sherman Shah al, N Engl J Med 2014;370(14):8673-1530.) Cologuard may produce a false negative or false positive result (no colorectal cancer or precancerous polyp present at colonoscopy follow up). A negative Cologuard test result does not guarantee the absence of CRC or advanced adenoma (pre-cancer). The current Cologuard screening interval is every 3 years. ([place] Cancer Society and U.S. Multi-Society Task Force). Cologuard performance data in a 10,000 patient pivotal study using colonoscopy as the reference method can be accessed at the following location: www.exactlabs.com/results. Additional description of the Cologuard test process, warnings and precautions can be found at www.cologHadaptrd.com. Stool (Stool) 01/28/2022 9:4 0 AM CDT 01/29/2022 4:27 PM CDT Ginette Grullon M.D. LAB BODY FLUIDS AND STOOLS ORDERABLES [facility] [address] [place] [address] [facility] [address] [facility], [address] [place] [address] * BI Breast Screening Bilateral with Tomosynthesis [...] ASSESSMENT: BI-RADS: 1: Negative. Ginette Grullon M.D. IMG BI PROCEDURES * HCV Ab Scrn w/Reflex to HCV PCR, Serum (10/13/2018 10:00 AM CDT) HCV Ab Screen, S Negative Negative 10/14/19 19 3:49 PM CDT Comment: Biotin has been identified by the field insurance sales manager as a potential interfering substance. ??Higher concentrations of biotin may be found in multivitamins, hair/nail supplements, and workout supplements. ??If the result does not match clinical observations, repeat testing after patient refrains from the use of supplements for at least 12 hours. Blood (Blood, Venous) 10/13/2018 10:00 AM CDT 10/13/2018 2:01 PM CDT Narrative [facility] - 10/13/2018 3:49 PM CDT Specimen Information: Specimen ID: [id number] Specimen Type: Blood Specimen Collection Start Date: 10/13/2018 10:00 AM Specimen Received Date: 10/13/2018 ??2:01 PM Specimen ID: [id number] Specimen Type: Blood Specimen Collection Start Date: 10/13/2018 10:00 AM Specimen Received Date: 10/13/2018 ??2:01 PM Maria Guadalupe Thornton M.D. LAB MICROBIOLOGY - BLOOD ORDERABLES [facility] [address] [place] [address], [facility] from Last 3 Months or Most Recently Relevant to Health Maintenance Advance Directives For more information, please contact: [phone] * Full Code (Latest Code Status on [...] Answer Comments Full Code: Discussed Care Teams Spray Gun Striper Relationship Specialty Start Date End Date Kike Qureshi M.D. [address] [address] PCP - General 07/08/22
--- OUTSIDE RECORDS SUMMARY | 2023-09-17 05:54 | XMS_ITS ---
Author Organization [facility] Address [address] [place] [address] Care Team Providers Care Sales Representative Health Insurance Name Role Phone Unavailable Unavailable Unavailable Surgery Details Not on file Complications Check Surgery Details section. Procedure Estimated Blood Loss Check Surgery Details section. Procedure Findings Check Surgery Details section. Procedure Specimens Taken Check Surgery Details section.
--- OUTSIDE RECORDS SUMMARY | 2023-09-17 05:54 | XMS_ITS | Encounter Summary ---
Author Organization [facility] Address [address] [place] [address] Care Team Providers Care Beer Merchant Name Role Phone Kike Qureshi M.D. Primary Care Provider +1 [phone] Encounter Details Date Type Department Care Team (Late st Contact Info) Description 12/30/2019 Orders Only Department of Family Medicine, [facility], in [place], [place] [address] [place] [address] Ginette Grullon M.D. Social History Tobacco Use Types Packs/Day Years Used Date Smoking Tobacco: Never Smokeless Tobacco: Never Alcohol Use Standard Drinks/Week Comments Yes 4 (1 standard drink = 0.6 oz pur e alcohol) Humiliation, Afraid, Rape, and Kick questionnair e Answer Date Recorded Within the last year, have y ou been afraid of your partner or ex-partner? No 12/28/2019 Within the last year, have y ou been humiliated or emotionally abused in other ways by your partner or ex-partner? No Within the last year, have y ou been kicked, hit, slapped, or otherwise physically hurt by your partner or ex-partner? No 12/28/2019 Within the last year, have y ou been raped or forced to have any kind of sexual activity by your partner or ex-partner? No 12/28/2019 Social Connection and Isolation Panel [NHANES] A nswer Date Recorded Frequency of Communication with Friends and Fami ly Not on file 12/28/2019 How often do you get togethe r with friends or relatives? Three times a week 12/28/2019 Attends [employer] Services Not on file 12/27 Active Member of Clubs or Organizations Not on f ile 12/28/2019 Attends Club or Organization Meetings Not on taina e 12/28/2019 Marital Status Not on file 12/28/2019 AUDIT-C Answer Date Recorded Frequency of Alcohol Consumption 4 or more times a week 01/26/2019 Average Number of Drinks 1 or 2 019 Frequency of Binge Drinking Never 12/30 Overall Financial Resource Strain (CARDIA) Answe r Date Recorded How hard is it for you to pa y for the very basics like food, housing, medical care, and heating? Not hard at all 12/28/2019 PHQ-2 Answer Date Recorded PHQ-2 Score 0 12/30/2019 [facility] - Occupational Stress Questionnaire Answer Date Recorded Feeling of Stress Only a little 01/26/2019 Exercise Vital Sign Answer Date Recorde d Days of Exercise per Week Not on file 2019 On average, how many minutes do you engage in exercise at this level? 40 min 12/28/2019 Hunger Vital Sign Answer Date Recorded Worried About Running Out of Food in the Last Ye ar Never true 01/26/2019 Ran Out of Food in the Last Year Never true 01/26/2019 PRAPARE - Transportation Answer Date Re corded Lack of Transportation (Medical) No 01/26/2019 Lack of Transportation (Non-Medical) No 01/26/2019 Nutrition Answer Date Recorded Nutrition: EVOO Fat Source Yes 12/27 On average, how many serving s of fruits and vegetables do you eat per day (serving size is equal to 1 cup or approximately the size of a tennis ball)? 2-3 12/28/2019 Dental Answer Date Recorded Dental: Regular Dentist 11 12/20/19 20 Education Answer Date Recorded What is the highest level of school you have completed or the highest degree you have received? 12th grade 01/26/2019 Sex and Gender Information Value Date Recorded Sex Assigned at Female 12/03/2017 1:56 PM CDT Gender Identity Female 12/03/2017 1:56 PM CDT Sexual Orientation Straight 12/03/2017 1: 56 PM CDT documented as of this encounter Plan of Treatment Not on file documented as of this encounter Visit Diagnoses Not on filedocumented in this encounter Additional Health Concerns Infection Onset Date Last Indicated Resolved Time COVID19 12/29/2021 12/29/2021 01/18/2022 4:48 AM CDT Assessment Noted Time PHQ-9 Depression Total Score: 0 11/11/19 13 11:38 AM CDT documented as of this encounter Care Teams Beer Merchant Relationship Specialty Start Date End Date Kike Qureshi M.D. [address] [place] [id number] PCP - General 07/08/22 documented as of this encounter
--- OUTSIDE RECORDS SUMMARY | 2023-09-17 05:54 | XMS_ITS | Encounter Summary ---
Author Organization [facility] Address [address] [place] [address] Care Team Providers Care Deckhand Crab Boat Name Role Phone Needs Pcp, Assignment Primary Care Provider [phone] Reason for Referral * (Routine) - New Request Specialty Diagnoses / Procedures Referred By Shon mccurdy Referred To Contact Diagnoses Actinic keratosis Procedures NV DESTRUC BENIGN/PREMAL,2-14 [place] [address] [place] [address] Referral ID Status Reason Start Date Expiration Date V isits Requested Visits Authorized [id number] New Request 08/07/2023 11/05/2024 1 1 * (Routine) - New Request Specialty Diagnoses / Procedures Referred By Shon mccurdy Referred To Contact Diagnoses Actinic keratosis Procedures NV DESTRUC BENIGN/PREMAL,2-[place] [address] [place] [address] Referral ID Status Reason Start Date Expiration Date V isits Requested Visits Authorized [id number] New Request 07/24/2023 10/22/2024 1 1 Reason for Visit * Reason Comments Skin Check FBE. Several spots o n face of concern. Spots are flaky. Denies sensitivity or bleeding. Encounter Details Date Type Department Care Team ([facility] st Contact Info) Description 07/24/2023 10:30 AM CDT Office Visit [facility] [address], [facility] [address] [place] [address] [place] [id number] [facility] [place] [address] History of nonmelanoma skin cancer (Primary Dx); Multiple benign nevi; Actinic keratosis; Lentigo; Seborrheic keratosis; Notalgia paresthetica; Cuellar angioma; Scar conditions and fibrosis of skin; Beau's lines of nails; Neoplasm of skin (HRC); Spider veins of both lower extremities Social History Tobacco Use Types Packs/Day Years Used Date Smoking Tobacco: Never Assessed Sex and Gender Information Value Date Recorded Sex Assigned at Not on file Gender Identity Not on file Sexual Orientation Not on file documented as of this encounter Patient Instructions * Patient Instructions* Harriet Duckworth RN - 07/24/2023 10:30 AM CDT Liquid Nitrogen Treatment (Cryotherapy) How it Works: Liquid nitrogen (Cryotherapy) is a cold liquified gas, with a temperature of -321?? F. It's used to freeze and destroy superficial skin growths. Treatment Goals: Treatment with liquid nitrogen may cause the treated area to appear red or swollenanywhere from a few hours to a couple of days. Usually a scab/crust forms, which will fall off by itself in 1 to 3 weeks. The skin growth will fall off with the scab, leaving healthy new skin. This new skin is typically aircraft instrument tester, and will usually blend in color-schultz over time. You May Experience: Liquid nitrogen causes stinging and mild pain while the growth is being frozen and then thaws. The worst discomfort occurs during the first five to 10 minutes of the procedure, but can sometimes last significantly longer. A blister, sometimes a blood blister, may form. If this occurs, you may pop the blister with a clean needle, but leave the roof of the blister intact on the skin. If this does happen, keep the area covered with a Band-Aid and use Vaseline. Areas that are prone to blistering are the eyelids and hands. The blisters and swelling are part of the treatment and will gradually heal. No special care is needed. You can wash as usual and use makeup or other cosmetics. You also may experience some redness, swelling, tenderness, weeping, or crusts/scabs. Try not to pick at, itch, or scrub the area. If the treated sore area feels sore or irritated, you can keep it covered. Avoid excessive sun exposure since this can result in persistent darkening at the treated sites. PLEASE NOTE: Sometimes, growths have to be re-frozen. If your growth is not cured by liquid nitrogen, please make a return appt. Uncommon: Call the dermatology clinic if you have any white, green, or yellow fluid drainage or anysign of an apparent infection. Care Instructions after a shave skin biopsy/removal When do I start changing the bandage on my wound site? Leave the original bandage/dressing in place for 24 to 48 hours. If you develop bleeding from the site, apply firm pressure directly over the bandage, using the heel of your hand, for [address] bandage on top of the first one - don't keep removing and replacing dressings. NO PEEKING! Notify us if the bleeding still does not stop. How do I change the bandage on my wound? Clean the area once a day with warm soap and water. Gently pat dry the area. After the area has been cleaned and is dry, apply a small amount of petroleum jelly or Aquaphor healing ointment and apply a new bandage. We prefer that you do not use an antibacterial ointment (i.e. bacitracin, Neosporin) as many peopledevelop a hypersensitivity including a rash and even blistering related to these. Is it okay to shower after having a skin biopsy/removal? Showering is okay, but please do not soak in a bathtub, hot tub, or pool. This will slow the healing process and may create infection. When can I stop bandaging my wound? Continue the wound care process until the area is healed. Complete healing usually takes 2-4 weeks.Wounds heal best when kept moist, try not to let the area dry out. During this process you may see a white film develop over your wound and this is part of the normal healing process. Letting them open to air, drying out, and having a scab form actually causes wounds to take longer to heal. If yourskin is getting sensitive to the bandage, use gauze and paper tape. Can I exercise after having a skin biopsy/removal? Avoid exercising for 2 days. What signs or symptoms should I call the dermatology department about? Infection after a biopsy is not likely, but can occur. Mild amounts of redness, bruising, swelling,discomfort and a clear to yellowish to blood-tinged discharge are normal. Signs of Infection include: fever, increasing pain, blood blister, drainage of pus, and extreme heat from the site. Please call the clinic if you experience any of these symptoms. When will I receive my skin biopsy/removal results? Your skin biopsy specimen will be sent to our laboratory for processing. Your clinician will contact you with the results of this pathology report when it is available. Typically you will be contacted 7 to 14 days after your biopsy or procedure. Our pathology services will be listed separately on your bill. If you have further questions about the biopsy process or if you have not received your biopsy results within 2 weeks, please call the clinic. documented in this encounter Progress Notes * Odessa Velasco MD - 07/24/2023 10:30 AM CDT Images from the original note were not included. Problem List None History of Present Illness: Maria Guadalupe Pereyra is a 72 y.o. female who presents to clinic today for Skin Check (FBE. Several spotson face of concern. Spots are flaky. Denies sensitivity or bleeding.) Overall doing well. Since I have seen her, she has had both knees replaced, bilateral carpal tunnelsurgery. Very happy with her current primary doctor, Dr. Cierra Nation, in [place]. Lives in [place] She is otherwise well. Patient is not aware of any other lesions that are changing, burning, itching or bleeding. No other acute concerns. Past Medical History: BCC and SCC There is no problem list on file for this patient. Family History: Daughter with NMSC. Physical Examination: General: Well-appearing female, in no distress, alert and oriented. Skin: Full body skin exam performed including the head, neck, chest, back, abdomen, arms, and legs.Did not examine genitals. Please see below for additional problem associated details of physical exam. Findings, Assessment, and Plan: 1. History of nonmelanoma skin cancer - Well healed scars at the sites of previous NMSC with no evidence of recurrence No signs of recurrence on today's exam. Continue to monitor. Reviewed the importance of sun protection and monthly self skin checks. 2. Multiple benign nevi - Scattered 3-5 mm uniformly colored, bland, symmetrical brown macules and papules on trunk, arms, and legs. No features specific for melanoma on exam today. - 4 mm dermal nevus upper back, just right of midline - Small junctional nevi scattered over bilateral arms and legs The benign nature of lesions discussed, reassurance provided. We discussed ongoing sunprotection atlength including high SPF sunscreen, sunprotective clothing. Discussed the ABCDEs of melanoma. 3. Actinic keratosis (6) Right Buccal Cheek, Right Forehead (3), Right Nasal Sidewall, Right Cascade - Erythematous scaly flaky lesions, slightly tender to touch Discussed diagnosis, importance of sun-protection and avoidance, and treatment. Risks and benefits of cryotherapy were discussed, including but not limited to risk of blistering, dyspigmentation, scarring, recurrence and potential need for further treatment. Patient voices understanding, elected toproceed. Post- procedure wound care instructions reviewed with the patient. Advised to RTC patient notices recurrence or failure to resolve. Cryotherapy, skin lesion (No CPT) - Right Buccal Cheek, Right Forehead (3), Right Nasal Sidewall, Right Cascade 4. Lentigo (8) Chest (Upper Torso, Anterior), Left Arm, Left Lower Leg - Posterior, Left Thigh - Posterior, Right Arm, Right Lower Leg - Posterior, Right Thigh - Posterior, Torso - Posterior (Back) - Brown, well demarcated, even-colored macules noted. Reviewed importance of daily sunscreen, warning signs of skin cancer, need for monthly self skin/scar exams, and return to clinic if any new or worrisome spots arise or recur. 5. Seborrheic keratosis (5) Left Inframammary Fold, Left Leg, Right Inframammary Fold, Right Leg, Torso - Posterior (Back) - Scattered brown hyperkeratotic stuck on papular lesions noted - Thin seborrheic keratoses scattered over back Benign nature of these lesion reviewed with the patient. Reassurance provided. 6. 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 8. Scar conditions and fibrosis of skin (3) Right Wrist - Posterior; Left Knee - Anterior; Right Knee - Anterior 9. Beau's lines of nails 10. Neoplasm of skin (HRC) (2) Right Submandibular Area, 4 mm Shave removal (No CPT) Instrument used: flexible razor blade Specimen 1 - Surgical Path, Dermatology Clinical Impression: Irritated nevus Discussed management options, patient consented for shave biopsy/removal Anesthesia was obtained by 1% lidocaine and epinephrine by local infiltration. Area was prepped with alcohol. Lesion was biopsied/removed by tangential excision with a double edged blade. Edges and base curetted. Hemostasis with aluminum chloride. Routine after care directions given. No complications. Specimen sent for pathology. Patient will be notified of the report and need for follow up. Right Upper Back, 5 mm Shave removal (No CPT) Instrument used: flexible razor blade Specimen 2 - Surgical Path, Dermatology Clinical Impression: Irritated nevus Discussed management options, patient consented for shave biopsy/removal Anesthesia was obtained by 1% lidocaine and epinephrine by local infiltration. Area was prepped with alcohol. Lesion was biopsied/removed by tangential excision with a double edged blade. Edges and base curetted. Hemostasis with aluminum chloride. Routine after care directions given. No complications. Specimen sent for pathology. Patient will be notified of the report and need for follow up. 11. Spider veins of both lower extremities (4) Left Lower Leg - Posterior, Left Thigh - Posterior, Right Lower Leg - Posterior, Right Thigh - Posterior - linear vascular structures purple, 1 mm (or less) in diameter noted Reassured regarding benign nature of these lesions. Follow up: Return to clinic in the fall for laser treatment of telangiectasias on face. Return to clinic in one year for full body skin exam, recheck, sooner for new concerns. Orders Placed This Encounter Surgical Path, Dermatology Cryotherapy, skin lesion (No CPT) Shave removal (No CPT) Shave removal (No CPT) Dr. Odessa Velasco MD Surgical Path, Dermatology: [id number] Order: [id number] Status: Final result Visible to patient: Yes (not seen) Dx: Neoplasm of skin (HRC) 2 Result Notes Component Case Report Surgical Pathology Report Case: [id number] Authorizing Provider: Odessa Velasco MD Collected: 07/24/2023 1057 Ordering Location: [facility] Received: 07/25/2023 0738 Pathologist: Luis Shaikh MD Specimens: A) - Skin, Right Submandibular Area B) - Skin, Right Upper Back FINAL DIAGNOSIS A. Skin, Right Submandibular Area, shave: - Seborrheic keratosis, inflamed. B. Skin, Right Upper Back, shave: - Neurofibroma at 1457 Clinical Information A: Clinical Impression: Irritated nevus B: Clinical Impression: Irritated nevus Microscopic Description Microscopic examination is performed. Technical Information A portion of the technical staining was performed at [facility], [address] [place] [address]. Gross Description A: Received in formalin, labeled with the patient's name and Skin, Right Submandibular Area is a 4 x3 x 1 mm shave of skin. The specimen is marked with purple ink, bisected, and submitted entirely inone cassette. B: Received in formalin, labeled with the patient's name and Skin, Right Upper Back is a 7 x 6 x 1 mm shave of skin. The specimen is marked with black ink, bisected, and submitted entirely in one cassette. DS Resulting Agency [facility] Specimen Collected: 07/24/23 10:57 Last Resulted: 07/31/23 14:57 Order Details View Encounter Lab and Collection Details Routing Result History View All Conversations on this Encounter Scans on Order [id number] Document on 07/31/2023 1457 by Luis Shaikh MD Result Care Coordination Result Notes Shannon Davenport RN 07/31/2023 4:45 PM CDT Back to Top Called patient and verbally discussed bx results and message below. Informed patient that no further treatment needs to be done at this time. Patient verbalized a full understanding and denied any further questions or concerns at this time. Odessa Velasco MD 07/31/2023 4:32 PM CDT Please let her know that the lesion on her chin was a benign seborrheic keratosis The lesion on herright upper back was a benign growth called a neurofibroma. No further treatment necessary for either. documented in this encounter Plan of Treatment Upcoming Encounters Date Type Department Care Team (Late st Contact Info) Description 01/20/2024 10:45 AM CDT Appointment [facility] [address], [place] [address] [place] [address] [place] [address] [place], [place] [id number] 07/27/2024 10:30 AM CDT Appointment [facility] [address], [place] [address] [place] [address] [place] [address] [place], [place] [id number] documented as of this encounter Procedures Procedure Name Priority Date/Time Associated Diagnosis Comments EPIDERMAL / DERMAL SHAVING Routine 07/24/2023 10:57 AM CDT Neoplasm of skin (HRC) EPIDERMAL / DERMAL SHAVING Routine 07/24/2023 10:57 AM CDT Neoplasm of skin (HRC) SURGICAL PATHOLOGY, DERMATOLOGY Routine 07/24/2023 10:57 AM CDT Neoplasm of skin (HRC) CRYOTHERAPY SKIN LESION Routine 07/24/2023 10:45 AM CDT Actinic keratosis documented in this encounter Results * Shave removal (No CPT) (07/24/2023 10:57 AM CDT) Narrative EXTERNAL RESULTS - 07/24/2023 10:57 AM CDT Instrument used: flexible razor blade ?? Odessa Velasco MD DERM PROCEDURE ORDER MANAS Performing Organization Address [facility]/ZIP Co de Phone Number EXTERNAL RESULTS * Shave removal (No CPT) (07/24/2023 10:57 AM CDT) Narrative EXTERNAL RESULTS - 07/24/2023 10:57 AM CDT Instrument used: flexible razor blade ?? Odessa Velasco MD DERM PROCEDURE ORDER MANAS Performing Organization Address [facility] de Phone Number EXTERNAL RESULTS * Surgical Path, Dermatology (07/24/2023 10:57 AM CDT) Case Report Surgical Pathology Report ? Case: [id number] ? Authorizing Provider: ??Odessa Velasco MD ?Collected: ? 07/24/2023 1057 ? Ordering Location: ? [facility] ?Received: ?07/25/2023 0730 ? Pathologist: ? Luis Shaikh, ? MD ? Specimens: ?? A) - Skin, Right Submandibular Area ? B) - Skin, Right Upper Back ? 07/31/2023 2:57 PM CDT [facility] DERMATOLOGY FINAL DIAGNOSIS A. Skin, Right Submandibular Area, shave: - Seborrheic keratosis, inflamed. B. Skin, Right Upper Back, shave: - Neurofibroma 07/31/2023 2:57 PM CDT [facility] DERMATOLOG[facility] Clinical Information A: Clinical Impression: Irritated nevus B: Clinical Impression: Irritated nevus 07/31/2023 2:57 PM CDT [facility] DERMATOLOGY Microscopic Description Microscopic examination is performed. 07/31/2023 2:57 PM CDT [facility] DERMATOLOGY Technical Information A portion of the technical staining was performed at [facility], [address] [place], [place] [id number]. 07/31/2023 2:57 PM CDT [facility] DERMATOLOGY Gross Description A: Received in [...] one cassette. DS 07/31/2023 2:57 PM CDT [facility] DERMATOLOGY Embedded Images 07/31/2023 2:57 PM CDT [facility] DERMATOLOGY Skin (Skin) 07/24/2023 10:5 7 AM CDT 07/25/2023 7:30 AM CDT Comment:Clinical Impression: Irritated nevus Skin structure (body structure) (Skin) 07/24/2023 10:57 AM CDT 07/25/2023 7:30 AM CDT Comment:Clinical Impression: Irritated nevus Odessa Velasco MD LAB PATHOLOGY Performing Organization Address City/[facility]/ZIP Co de Phone Number [facility] [address] DERMATOLOGY [address] [place], [place] [address] * Cryotherapy, skin lesion (No CPT) (07/24/2023 10:45 AM CDT) Odessa Velasco MD DERM PROCEDURE ORDER MANAS EXTERNAL RESULTS documented in this encounter Visit Diagnoses Diagnosis History of nonmelanoma skin cancer- Primary Personal history of other malignant neoplasm of skin Multiple benign nevi Benign neoplasm of skin, site unspecified Actinic keratosis Lentigo Other dyschromia Seborrheic keratosis Other seborrheic keratosis Notalgia paresthetica Disturbance of skin sensation Cuellar angioma Nevus, non-neoplastic Scar conditions and fibrosis of skin Scar condition and fibrosis of skin Beau's lines of nails Other specified disease of nail Neoplasm of skin (HRC) Neoplasm of unspecified nature of bone, soft tissue, and skin Spider veins of both lower extremities documented in this encounter Care Teams Deckhand Crab Boat Relationship Specialty Start Date End Date Needs Pcp, [place] [address] PCP - General 03/08/22 documented as of this encounter
== END 2023-08-28 09:33 | disposition home or self-care (01) ==
LOC: NFLDREF 09-17 05:52
PROVIDERS: PCP Internal Medicine; Referring Provider Internal Medicine; Visit Provider Internal Medicine
DX: E78.5 Hyperlipidemia, unspecified (principal); E03.9 Hypothyroidism, unspecified; M85.80 Other specified disorders of bone density and structure, unspecified site
CPT/HCPCS: 80061; 82306; 84443

== ENCOUNTER 2023-10-22 09:45 | Outpatient (RCR) | payer MEDICARE, BC, SELFPAY ==
--- NOTE | 2023-10-08 15:30 | PT.OPEX ---
PT [place] Outpatient Eval PT [facility] Outpatient Eval Start: 10/08/23 07:31 Freq: Status: Active Protocol: Document 10/08/23 07:31 CRP (Rec: 10/08/23 15:27 CRP [id number]) E-signed By Will Sanchez PT Physical Therapy Outpatient Evaluation Insurance Information Recert Due Date 01/06/24 Insurance Name [employer] Medical Diagnosis Chronic thoracic back pain Referring MD Dr Urena Subjective Subjective Pt reports chronic pain issues with L mid thoracic spine and R shoulder pain. Shoulder has been an issue since about 1-2 years ago after straining it lifting a box. Pts primary issue is the thoracic spine pain. that has been about 5 years. No known injury. L thoracic spine is itchy and numb as well. 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 Sxs can vary day to day. Does feel like standing up tall with good posture does help. Sleep is affected by her R shoulder . Does not have the strength to lift arm up. Had bilateral TKA Nov 2022. Is doing very well with this. Osteoporosis Pain Comments 09/07 Current Work Status Retired Precautions Treatment Precautions/Contraindications Osteoporosis Objective Other/Pertinent Objective Posture: increased thoracic kyphosis Trunk ROM: flex WNL, Ext mod/ shelby dec, R SB min/mod dec, L SB mod dec, R rot WNL, L rot min dec Hip ROM WNL bilat Segmental testing: UPAs painful and hypomob T7 Shoulder ROM L WNL. R flex WNL with painful arc/drop arm. Abd 135 deg with painful arc, hand up back to T11, ER WNL MMT: Shoulder ER painful and weak, IR WNL, ABd weakness Assessment Assessment/Impression Pt presents to the clinic with signs and sxs consistent with mechanical thoracic spine pain that appears related to painful hypomobility and postural dysfunction. With this the pt also shows signs and sxs that suggest R shoulder rotator cuff tendinopathy. Pts shoulder dysfunction will have a direct affect on thoracic spine rehab. Secondary to this, PT will focus treatment consisting of ther ex, nm irvin , manual therapy and pt education to address both the primary thoracic spine issue as well as the secondary issue of R shoulder rotator cuff tendinopathy. 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 Pt will be independent with HEP in 6 weeks. 2. Pt will walk for exercise greater than 20 min with 80% decrease in pain in 10 weeks. 3. 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 Treatment Plan/Direct Interventions Joint Mobilization,Manual Therapy,Neuromuscular Re-ed, Self-Care/Home Management, Therapeutic Activities, Therapeutic Exercises Frequency/Duration 1-2x/wk for 12 weeks Patient Will Be Discharged From Therapy Completion of LTG(s),Skills Plateau,Independent w/HEP, Independently Progressing Evaluation Billing Untimed Code Treatment Minutes 30 Complexity Moderate Certification Information Initial Certification Date 10/08/23 Ending Certification Date 01/06/24 Provider Signature Required Yes Provider Signature Shows Agreement With POC & Medical Necessity Physician NPI Number Write NPI# Here Physician Comment/Change : Physician Signature & Date Requested Please Sign/Date Here
== END 2024-02-19 23:59 | disposition home or self-care (01) ==
PROVIDERS: PCP Internal Medicine; Visit Provider Internal Medicine
DX: M54.6 Pain in thoracic spine (principal); G89.29 Other chronic pain; Z51.89 Encounter for other specified aftercare
CPT/HCPCS: 97110; 97140; 97162

== ENCOUNTER 2024-04-15 06:04 | Day surgery (SDC) | payer MEDICARE, BC, SELFPAY ==
[2024-04-15] VITALS (14 sets, daily range): BP systolic 111–174; BP diastolic 50–114; PULSE 50–58; RESP 16–20; TEMP 36.1–37; O2SAT 96–100; BMI 23.3
--- OUTSIDE RECORDS SUMMARY | 2024-04-15 06:07 | XMS_ITS | Continuity of Care Document ---
Author Name NwHIN User IhsanleMN-a llowed Address Unknown Organization Unknown Address Unknown Alerts, Allergies and Adverse Reactions FILTER APPLIED:All Known Active Allergies Substance Reaction Onset Status No Known Allergies ([id number]) Allergic Reaction (Unk nown) Active Procedures FILTER APPLIED:Only known Procedures with Onset Date within the last 5 years Procedure Date Procedure Provider Additiona l Information Status DXA BONE DENSITY AXIAL (73193) Completed BREAST TOMOSYNTHESIS BI (22768) Completed SCR MAMMO BI INCL CAD (27815) Completed THERAPEUTIC ACTIVITIES (10426) Completed NEUROMUSCULAR REEDUCATION (82448) Completed GAIT TRAINING THERAPY (78937) Completed PT RE-EVAL EST PLAN CARE (58783) Completed MANUAL THERAPY 1/> REGIONS (15030) Completed PROTHROMBIN TIME (35019) Completed SELF CARE MNGMENT TRAINING (91416) Completed COMPLETE CBC W/AUTO DIFF WBC (62013) Completed ROUTINE VENIPUNCTURE (73382) Completed ASSAY OF CREATININE (30137) Completed ASSAY OF SERUM POTASSIUM (03224) Completed ASSAY OF SERUM SODIUM (33974) Completed ASSAY OF UREA NITROGEN (04404) Completed OT EVAL LOW COMPLEX 30 MIN (51274) Completed ANES PT EXTEME AGE<1 YR >70 (46874) Completed THERAPEUTIC ACTIVITIES (67460) Completed PT EVAL LOW COMPLEX 20 MIN (21417) Completed THERAPEUTIC EXERCISES (86840) Sep-05-2023 Completed ECHO GUIDE FOR BIOPSY (60629) Completed X-RAY EXAM OF KNEE 1 OR 2 (86670) Completed NJX AA /STRD GNCLR NRV BRNCH (28169) Completed NJX AA /STRD FEMORAL NRV IMG (53109) Completed ANESTH KNEE ARTHROPLASTY (00517) Completed ARTHRP KNE CONDYLEANDPLATU MEDIALANDLAT COMPARTMENTS (20178) Completed GAIT TRAINING THERAPY (54202) Completed PT EVAL MOD COMPLEX 30 MIN (68401) Completed THERAPEUTIC EXERCISES (83332) Completed SELF CARE MNGMENT TRAINING (86729) Completed Encounters FILTER APPLIED:Only known Encounters with Admission Date within the last 5 years Encounter Location Admission Discharge Billing Code Cell[facility] Attender Emergency [facility] Derek Schrader Outpatient [facility] Outpatient Cindy Urena Outpatient Cindy Urena Outpatient [facility] JOHN GUTIÉRREZ
--- OUTSIDE RECORDS SUMMARY | 2024-04-15 06:08 | XMS_ITS | Clinical Summary ---
Author Organization [facility] Address [address] [place] [address] Care Team Providers Care Pattern Setter Name Role Phone Kike Qureshi M.D. Primary Care Provider Source Comments Patient records contain information from all sites at [facility]. For routine questions regarding patient records, call [phone] during business hours, M-F 8:00 AM - 5:00 PM Central Time. Record requests for emergency care only can be directed to [phone] at any time.[facility] Allergies Active Allergy Reactions Criticality Noted Date Comments Azithromycin Other (see comments) 10/26/2008 Upset stomach Cefprozil Other (see comments) 09/13/2010 Has tolerated zosyn, augmentin, and keflex House Dust Mite Other (see comments) Low 08/30/2011 Gluten Other (see comments) 03/03/2020 Unable to digest Lactose GI intolerance Medium 12/07/2017 Diarrhea Spironolactone Other (see comments) 10/24/2021 hyponatremia Sulfa (Sulfonamide Antibiotics) Other (see comments),Headache 10/26/2008 Medications * This document contains information received from the source organization and may not represent a complete record from that organization. cetirizine (ZyrTEC) 10 mg tablet Take 1 tablet by mouth at bedtime. 03/12/20 16 Active carboxymethylc ellulose (REFRESH TEARS) 0.5 % ophthalmic solution Administer 1 drop into both eyes at bedtime. Active diclofenac sodium (VOLTAREN) 1 % gel Apply 2 g topically 4 (four) times a day as needed (joint pain). Apply to hands/neck as needed for pain. 03/29/20 22 Active fluticasone propionate (FLONASE) 50 mcg/actuation nasal spray Administer 2 sprays into each nostril daily as needed for allergies or rhinitis. 03/29/20 22 Active mupirocin (BACTROBAN) 2 % ointment Apply 1 Application topically 3 (three) times a day. 22 g 11/13/19 23 Active tretinoin (RETIN-A) 0.025 % cream Apply to affected area face q pm to treat acne and clogged pores 07/23/19 23 Active levothyroxine (SYNTHROID, LEVOTHROID) 50 mcg tablet Take 1 tablet (50 mcg total) by mouth every morning before breakfast. 90 tablet 3 12/18/19 23 Active oxyCODONE (ROXICODONE) 5 mg immediate release tablet Take 0.5-1 tablets (2.5-5 mg total) by mouth every 4 (four) to 6 (six) hours as needed for pain. Max Daily Dose: 6 tabs per day. Discontinue as soon as possible. 42 tablet 3 4:43 PM CDT 12/18/19 23 Active valACYclovir (Valtrex) 1000 mg tablet TAKE 2 TABLETS BY MOUTH AT ONSET, THEN TAKE 2 TABS 12 HOURS LATER 12 tablet 11/04/19 24 Active atenoloL (Tenormin) 100 mg tablet Take 1 tablet (100 mg total) by mouth daily. Patient needs Office Visit and Labs for further refills. 90 tablet 02/09/20 24 Active triamcinolone (KENALOG) 0.5 % cream Apply 1 application topically 2 (two) times a day as needed (hemorrhoids). 15 g 3 12/30/19 20 021 Discontinued metoprolol succinate (TOPROL-XL) 100 mg 24 hr tablet Take 1 tablet (100 mg total) by mouth daily. 90 tablet 3 07/20/19 22 022 Discontinued Active Problems Problem Noted Date Diagnosed Date Hypertension White Coat 11/26/2022 Carpal Tunnel Syndrome Right 05/27/2022 Overview (05/27/2022): Added automatically from request for surgery [id number] Diverticulitis Colon 03/02/2022 Diverticulitis 03/02/2022 COVID-19 Infection 01/02/2022 Membrane Macula Epiretinal Right 03/16/2020 Hyperlipidemia Mixed 10/13/2018 Overview (01/13/2019): Much improved as of 01/16 with weight loss and diet changes. No meds. Cancer Skin Basal Cell Personal History 10/14/19 19 Hypothyroidism 03/13/2017 Overview (03/13/2017): Synthroid started 02/14 Assessment & Plan (03/13/2017 12:37 PM JOB HONER): Follow-up TSH today. Adjust as needed. Irritable Bowel Syndrome With Diarrhea 7 Overview (10/13/2018): Viberzi trial in 02/14 - didn't help. Assessment & Plan (03/13/2017 12:38 PM JOB HONER): Her plan is to return to the half dose Viberzi 2 to 3 times a week. She will portal a message to me regarding how this goes. Menopausal And Female Climacteric States 017 Assessment & Plan (03/13/2017 12:40 PM JOB HONER): Continue gabapentin. Carrier Breast Cancer Gene Mutation 03/20/2016 Overview (11/05/2017): BRCA positive. Followed in [place]. MRI and Mammo six months apart Mother with stage IV ovarian cancer Assessment & Plan (03/13/2017 12:39 PM JOB HONER): Ordered her mammogram. Breast Cancer Susceptibility Gene Mutation Famil y History 01/10/2016 Cancer Ovary Family History 01/10/2016 Overview (01/13/2019): 90-year-old mother diagnosed with stage IV ovarian cancer in the summer of 2018 - in Oct 2017 Hypertension Essential Primary 10/19/2015 Overview (03/13/2017): toprol xl 50mg daily Assessment & Plan (03/13/2017 12:37 PM JOB HONER): Stable, well managed. No changes. Gastroesophageal Reflux Disease NOS 03/11/2011 Overview (03/13/2017): PPI therapy. Primary Osteoarthritis First Carpometacarpal Joints Bilateral Overview (03/13/2017): OT evaluated; this helped Resolved Problems Problem Noted Date Diagnosed Date Resolved Date Intraocular Lens Implant Status Post 03/16/2020 01/08/2021 Keratosis Actinic 10/13/2018 01/08/2021 PreDiabetes 10/13/2018 01/13/2019 Cataract Senile Nuclear Sclerosis Right 11/11/2017 10/13/2018 Overview (11/11/2017): Added automatically from request for surgery [id number] Cataract Senile Nuclear Sclerosis Left 11/11/2017 10/13/2018 Overview (11/11/2017): Added automatically from request for surgery [id number] Hemorrhoids 03/13/2017 12/24/2019 Overview (03/13/2017): Topical steroids - nonbleeding Assessment & Plan (03/13/2017 12:38 PM JOB HONER): Patient would like to pursue surgical evaluation, but will wait until she has reached Medicare benefit age Screening Mammogram Average Risk Patient 03/13/2017 03/13/2017 Hay Fever 03/11/2011 12/24/2019 Overview (03/13/2017): Derek Khan. Encounters Date Type Department Care Team Description 04/06/2024 Orders Only [facility] Kike Qureshi M.D. Hyperlipidemia Mixed; Hypothyroidism 02/06/2024 Refill Department of Family Medicine, [facility], in [address] [phone] Kike Qureshi M.D. Med Refill from Last 3 Months Immunizations Name Administration Dates Next Due H1N1 Inj 03/17/2009 HZV (ZOSTAVAX) 09/04/2011 HepB Adult 02/16/1999,07/20/1998,04/06/1998 Influenza high dose QV(65 ye ars or [...] (TENIVA C, DECAVAC) 12/30/2019 Tdap 12/07/2008 influenza trivalent high dos e (HD)(PF) 01/19/2019,01/20/2018 influenza trivalent vaccine (6 months and older)(PF) 12/07/2008 influenza vaccine quad (FLUZONE/FLUARIX) (6 months and [...] week 03/10/2022 How often do you attend [facility] or shinto services? More than 4 times per year 03/10/2022 Do you belong to any clubs o r organizations such as nondenominational groups, unions, fraternal or athletic groups, or [...] Answer Date Recorded PHQ-2 Score 0 11/11/2022 [facility] - Occupational Stress Questionnaire Answer Date Recorded [...] place to sleep or slept in a long term (including now)? No 03/10/2022 Nutrition Answer Date [...] degree you have received? 12th grade 01/26/2019 Comments No Sex and Gender Information Value Date Recorded Sex Assigned at Female 12/03/2017 1:56 PM CDT Legal Sex Female 2:47 AM JOB HONER Gender Identity Female 12/03/2017 1:56 PM CDT Sexual Orientation Straight 12/03/2017 1: 56 PM CDT Last Filed Vital Signs Vital Sign Reading Time Taken Comments Blood Pressure 192/76 11/26/2022 11:48 AM CDT Pulse 53 11/26/2022 11:18 AM CDT Temperature 36.3 C (97.3 F) 11/26/2022 11:18 AM CDT Respiratory Rate 16 11/12/2022 9:07 AM CDT [...] FIT 1950 Visit: Medicare Annual Wellness 1950 Mammogram 01/17/2023 01/17/2022, 12/30, 12/21/2020, Additional history exists Office Visit for Blood Pressure Check / Re-check 02/26/2023 11/26/2022 Lipid (Cholesterol) Screening 02/28/2023 02/28/2022, 01/10/2021, 12/30/2019, Additional history exists Thyroid Stimulating Hormone (TSH) test for thyroid function 11/13/2023 11/12/2022, 07/10/2022, 07/19/2021, Additional history exists Visit: Chronic Disease, age 18+ 2023 11/26/2022 COVID-19 Vaccine ( season) 2023 09/02/2023, 11/12/2022, 12/24/2021, Additional history exists Influenza Vaccine (#1) 2023 , 02/04/2022, 12/23/2020, Additional history exists Depression Screening (Annual PHQ-2) 03/31/2024 Fall Risk Screen (Annual) 03/31/2024 Cologuard 01/28/2025 01/28/2022, 12/30, 11/09/2015, Additional history exists Fasting Glucose for Diabetes Screening 11/12/2025 11/12/2022, 05/08/2022, 03/27/2022, Additional history exists DTaP,Tdap,and Td Vaccines (3 - Td or Tdap) 12/29/2029 12/30/2019, 12/07/2008, 11/26/2001 Colonoscopy 05/07/2032 05/07/2022, 09/2022, 07/18/2004 Colorectal Cancer Screening 05/07/2032 Hepatitis B Vaccines Completed 02/16/1999, 07/20/1998, 04/06/1998 Hepatitis C Screening Completed 10/13/2018 Pneumococcal vaccine (50+ years) Completed 01/19/2019, 11/05/2017 IPV Vaccines Aged Out No longer eligi ble based on patient's age to complete this topic Medical Devices Implanted Type Area Front Desk Representative Device Identifier Shelf Expiration Date Model / Serial / Lot Hardware E.G. Pins/Screws/Ro ds Hardware e.g. pins/screws/ rods Foot Description:Staple in each f oot Sympfony Implanted:Qty: 1 on 12/10/2017 by Jericho Hatfield M.D. at [facility] Ocular Lens Right: Eye Hoang 06/09/2022 [id number] / [id number] / N/A Tecnis Multifocal Iol Implanted:Qty: 1 on 12/24/2017 by Jericho Hatfield M.D. at [facility] Ocular Lens [employer] 09/21/2021 [id number] / [id number] / Procedures Procedure Name Priority Date/Time Associated Diagnosis Comments BASIC METABOLIC PANEL, S/P Routine 11/12/2022 10:08 AM CDT Preoperative Exam THYROID-STIMULATING HORMONE-SENSITIVE (S-TSH) Routine 11/12/2022 10:08 AM CDT Hypothyroidism COLONOSCOPY Routine 05/07/2022 1:21 PM JOB HONER Diverticulitis LIPID PANEL, S Routine 02/28/2022 7:58 AM JOB HONER Hyperlipidemia Mixed COLOGUARD Routine 01/28/2022 9:40 AM [...] CDT Kike Qureshi M.D. LAB BLOOD ADD-ON Final Resu lt [facility] [address] [place] [address], [facility] RDWG [facility] [address], [place] [phone] * (ABNORMAL) Basic Metabolic Panel (11/12/2022 10:08 AM CDT) [facility] Potassium, P 4.5 3.6 - 5.2 mmol/L [...] 10:08 AM CDT 11/12/2022 10:10 AM CDT us Kike Qureshi M.D. LAB BLOOD ADD-ON Final Resu lt [facility] [address], [place] [address], [facility] RDWG [facility] [address] [place] [address] [phone] * (ABNORMAL) Lipid Panel (02/28/2022 7:58 AM JOB HONER) Triglycerides 53 mg/dL 02/28/2022 8:18 AM JOB HONER CNFL Comment: ----REFERENCE VALUE---- Normal: <150 mg/dL Borderline High: 150-199 mg/dL High: 200-499 mg/dL Very High: > or =500 mg/dL Cholesterol, Total 235(H) mg/dL 2021 8:18 AM JOB HONER CNFL Comment: ----REFERENCE VALUE---- Desirable: < 200 mg/dL Borderline High: 200 - 239 mg/dL High: > or = 240 mg/dL Cholesterol, LDL, Calculated 138(H) mg/dL 02/28/2022 8:18 AM JOB HONER CNFL Comment: ----REFERENCE VALUE---- Desirable: <100 mg/dL Above Desirable: 100-129 mg/dL Borderline High: 130-159 mg/dL High: 160-189 mg/dL Very High: >=190 mg/dL ----ADDITIONAL INFORMATION---- LDL cholesterol calculated using the Sommers/NIH equation. Cholesterol, HDL 88 >=50 mg/dL 02/29/20 8:18 AM JOB HONER CNFL Cholesterol, Non-HDL, Calculated 147 mg/dL 02/28/2022 8:18 AM JOB HONER CNFL Comment: ----REFERENCE VALUE---- Desirable: <130 mg/dL Above Desirable: 130-159 mg/dL Borderline High: 160-189 mg/dL High: 190-219 mg/dL Very High: > or =220 mg/dL Fasting (8 HR or more) yes 02/28/2022 8:00 AM JOB HONER CNFL Blood (Blood, Venous) 02/28/2022 7:58 AM JOB HONER 02/28/2022 8:00 AM JOB HONER us Ginette Grullon M.D. LAB BLOOD ADD-ON Final Resu lt [facility] [address] [address], [facility] CNFL [facility] [id number] [place] [address] * Cologuard-Sent Out Lab (01/28/2022 9:40 AM CDT) Result Negative Negative 02/01/2022 10:32 AM CDT EXLI Comment: NEGATIVE TEST RESULT. A negative Cologuard result indicates a low likelihood that a colorectal cancer (CRC) or advanced adenoma (adenomatous polyps with more advanced pre-malignant features) is present. The chance that a person with a negative Cologuard test has a colorectal cancer is less than 1 in 1500 (negative predictive value >99.9%) or has an advanced adenoma is less than 5.3% (negative predictive value 94.7%). These data are based on a prospective cross-sectional study of 10,000 individuals at average risk for colorectal cancer who were screened with both Cologuard and colonoscopy. (Sherman Wirght et al, N Engl J Med 2014;370(14):6184-7932) The normal value (reference range) for this assay is negative. COLOGUARD RE-SCREENING RECOMMENDATION: Periodic colorectal cancer screening is an important part of preventive healthcare for asymptomatic individuals at average risk for colorectal cancer. Following a negative Cologuard result, the [place] [employer] Society and U.S. Multi-Society Task Force screening guidelines recommend a Cologuard re-screening interval of 3 years. References: [place] [employer] Guideline for Colorectal Cancer Screening: https://www.cancer.org/cancer/mywgv-lqqtdq-vwnmvf/detection- diagnosis-staging/acs-recommendations.html.; Lencho DK, Mariam CR, Parag PatelK, Colorectal Cancer Screening: Recommendations for Physicians and Patients from the U.S. Multi-Society Task Force on Colorectal Cancer Screening , Am J Gastroenterology 2017; 112:0542-6745. TEST DESCRIPTION: Composite algorithmic analysis of stool DNA-biomarkers with hemoglobin immunoassay. Quantitative values of individual biomarkers are not [...] (Sherman Shah al, N Engl J Med 2014;370(14):3845-9411.) Cologuard may produce a false negative or false positive result (no colorectal cancer or precancerous polyp present at colonoscopy follow up). A negative Cologuard test result does not guarantee the absence of CRC or advanced adenoma (pre-cancer). The current Cologuard screening interval is every 3 years. ([place] [employer] Society and U.S. Multi-Society Task Force). Cologuard performance data in a 10,000 patient pivotal study using colonoscopy as the reference method can be accessed at the following location: www.OKKAM/results. Additional description of the Cologuard test process, warnings and precautions can be found at www.cologuard.com. Stool (Stool) 01/28/2022 9:4 0 AM CDT 01/29/2022 4:27 PM CDT us Ginette Grullon M.D. LAB BODY FLUIDS AND STOOLS ORDERABLES Final Result [employer] [facility] [address] [place] [address] EXLI [facility] [address] [place] [address], [address] [place] [address] * BI Breast Screening Bilateral with Tomosynthesis (01/17/2022 3:11 PM CDT) Anatomical Region Laterality Modality Breast, Breast Imaging RST L OS, Breast Imaging ARZ LOS, Breast Imaging FLA LOS Bilateral Mammography 01/17/2022 3:58 PM CDT Impressions 01/17/2022 4:00 PM CDT Negative. RECOMMENDATION: Annual Screening Mammogram ASSESSMENT: BI-RADS: 1: Negative. Narrative 01/17/2022 4:00 PM CDT EXAM: BI BREAST SCREENING BILATERAL WITH TOMOSYNTHESIS Current study was evaluated with a Computer Aided Detection (CAD) system. INDICATION: Screening mammogram. COMPARISON: Prior exam(s) were available and reviewed for comparison. DENSITY: c. The breast(s) are heterogeneously dense, which may obscure small masses. FINDINGS: No mammographic findings of malignancy. Procedure Note Ravinder [...] Negative. Ginette Grullon M.D. IMG BI PROCEDURES Final Res ult * HCV Ab Scrn w/Reflex to HCV PCR, Serum (10/13/2018 10:00 AM CDT) HCV Ab Screen, S Negative Negative 10/14/19 19 3:49 PM CDT Comment: Biotin has been identified by the precision thread grinder operator as a potential interfering substance. Higher concentrations of biotin may be found in multivitamins, hair/nail supplements, and workout supplements. If the result does not match clinical observations, repeat testing after patient refrains from the use of supplements for at least 12 hours. Blood (Blood, Venous) 10/13/2018 10:00 AM CDT 10/13/2018 2:01 PM CDT Narrative [facility] - 10/13/2018 3:49 PM CDT Specimen Information: Specimen ID: [id number] Specimen Type: Blood Specimen Collection Start Date: 10/13/2018 10:00 AM Specimen Received Date: 10/13/2018 2:01 PM Specimen ID: [id number] Specimen Type: Blood Specimen Collection Start Date: 10/13/2018 10:00 AM Specimen Received Date: 10/13/2018 2:01 PM Maria Guadalupe Thornton M.D. LAB MICROBIOLOGY - BLO OD ORDERABLES Final Result [facility] [address] [place] [address], [facility] from Last 3 Months or Most Recently Relevant to Health Maintenance Insurance MEDICARE [facility] [place] [address] Advance Directives For more information, please contact: [phone] * Full Code (Latest Code Status on [...] Answer Comments Full Code: Discussed Care Teams Pattern Setter Relationship Specialty Start Date End Date Kike Qureshi M.D. [address] [place] [phone] PCP - General 07/08/22
--- OUTSIDE RECORDS SUMMARY | 2024-04-15 06:08 | XMS_ITS | Encounter Summary ---
Author Organization [facility] Address [address] [place] [address] Care Team Providers Care Electromechanic Name Role Phone Kike Qureshi M.D. Primary Care Provider [phone] Reason for Referral * Outpatient (Routine) - Authorized Specialty Diagnoses / Procedures Referred By Contcecy t Referred To Contact Kike Qureshi M.D. [address] [place] [address] Phone: tel: fax: [facility] Region Referral ID Status Reason Start Date Expiration Date V isits Requested Visits Authorized [id number] Authorized 04/06/2024 10/06/2025 1 1 Scheduling Instructions Nurse AWV Do not schedule prior to due date to ensure insurance coverage Visit: Medicare Annual Wellness Never done. O COMMUNICATIONS SUPERINTENDENT Encounter Details Date Type Department Care Team (Late st Contact Info) Description 04/06/2024 Orders Only [facility] P[facility] Kike Qureshi M.D. [address] [place] [phone] Hyperlipidemia Mixed; Hypothyroidism Social History Tobacco Use Types Packs/Day Years [...] How often do you attend chur or pentecostalism services? 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 Gender Identity Female 12/03/2017 1:56 PM CDT Sexual Orientation Straight 12/03/2017 1: 56 PM CDT documented as of this encounter Plan of Treatment Scheduled Orders Name Type Priority Associated Diagnoses Orde r Schedule Lipid Panel Lab Routine Hyperlipidemia Mixed Expected: 04/20/2024, Expires: 10/03/2024 S-TSH (Thyroid-Stimulating Hormone - Sensitive) Lab Routine Hypothyroidism Expected: 04/20/2024, Expires: 10/03/2024 Scheduled Referrals Name Type Priority Associated Diagnoses Orde r Schedule Primary Care nurse visit (clinic) - [facility]; Medicare Annual Wellness Outpatient Referral Routine Expected: 05/04/2024, Expires: 10/03/2024 documented as of this encounter Visit Diagnoses Diagnosis Hyperlipidemia Mixed Hypothyroidism documented in this encounter Additional Health Concerns Assessment Noted Time PHQ-9 Depression Total Score: 0 11/11/19 13 11:38 AM CDT documented as of this encounter Care Teams Electromechanic Relationship Specialty Start Date End Date Kike Qureshi M.D. [address] [place] [phone] PCP - General 07/08/22 documented as of this encounter
--- OUTSIDE RECORDS SUMMARY | 2024-04-15 06:08 | XMS_ITS | Encounter Summary ---
Author Organization [facility] Address [address] [place] [address] Care Team Providers Care Chief Specialist Leed Name Role Phone Needs Pcp, Assignment Primary Care Provider [phone] Reason for Visit * Reason Comments LASER TREATMENT Rosacea Encounter Details Date Type Department Care Team (Latest Contact Info) Description 03/15/2024 10:30 AM [place] AND VINE FARMER FRUIT CROPS Procedure Visit [facility] [address] [facility] [address] [place], [place] [id number] [place] [address] [facility] [address] [place], [place] [id number] LASER TREATMENT (Rosacea) Social History Tobacco Use Types Packs/Day Years Used Date Smoking Tobacco: Never Assessed Sex and Gender Information Value Date Recorded Sex Assigned at Not on file Gender Identity Not on file Sexual Orientation Not on file documented as of this encounter Progress Notes * Odessa Velasco MD - 03/15/2024 10:30 AM CST Problem List None History of Present Illness: Maria Guadalupe Pereyra is a 73 y.o. female who presents to clinic today for LASER TREATMENT (Rosacea) Feels she is doing well overall. At her previous visit, we discussed ways to address skin texture. She has had tretinoin from a different hotel service manager which made her shed skin all over, and she really was not able to tolerate it. She currently is using a Neutrogena retinol product maybe once or twice a week. Still finds that she exfoliate after application. Feels that her rosacea is improving a lot with laser treatment. Would like to go ahead again today. She is otherwise well. Patient is not aware of any other lesions that are changing, burning, itching or bleeding. No other acute concerns. Past Medical History: See problem list as above. There is no problem list on file for this patient. Physical Examination: General: Well-appearing female, in no distress, alert and oriented. Skin: Focused examination of the face. Please see below for additional problem associated details of physical exam. Findings, Assessment, and Plan: 1. Rosacea/irritated facial lesions Head - Anterior (Face) - Standing erythema and fine calibre telangiectasias distributed on the nose and cheeks, overall significantly improved Patient elected to treat with PDL today due to ongoing discomfort, heat, burning, and blushing. Vascular Pulsed Dye Laser performed at settings of 10 mm spot size 6 msec 7.75 joules 2+ Cryo spray # of pulses: 159 Sites treated: Cheeks, chin, upper lip, and nose Indication: Rosacea/irritated facial lesions Aftercare reviewed verbally. Sun protection, potential for purpura/bruising, aftercare and further treatment expectations reviewed. Follow up: Return to clinic as scheduled for follow-up with Dr. Ye, and May for skin check., sooner for new concerns. Dr. Odessa Velasco MD AND VINE FARMER FRUIT CROPS documented in this encounter Plan of Treatment Upcoming Encounters Date Type Department Care Team (Late st Contact Info) Description 04/21/2024 10:45 AM [place] [employer] CROPS Appointment [facility] [address] [facility] [address] [place], [place] [phone] Ora Ye MD, PhD [address] [place], [place] [address] 07/27/2024 10:30 AM CDT Appointment [facility] [address] [facility] [address] [place] [id number] [place] [address] [facility] [place] [id number] documented as of this encounter Visit Diagnoses Diagnosis Inflamed seborrheic keratosis- Primary documented in this encounter Care Teams Chief Specialist Leed Relationship Specialty Start Date End Date Needs Pcp, [place] [address] PCP - General 03/08/22 documented as of this encounter
--- OUTSIDE RECORDS SUMMARY | 2024-04-15 06:08 | XMS_ITS | Clinical Summary ---
Author Organization [facility] Address [place], [place] [address] Care Team Providers Care Gas Processing Plant Operator Name Role Phone Nicol Crocker MD Primary Care Provider Allergies Active Allergy Reactions Criticality Noted Date Comments Sulfa (Sulfonamide Antibiotics) Headache 02/28 Medications No known medications Active Problems No known active problems Social History Tobacco Use Types Packs/Day Years Used Date Smoking Tobacco: Never Assessed Comments Unknown Sex and Gender Information Value Date Recorded Sex Assigned at Not on file Legal Sex Female 4:24 PM 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 PUBLICATIONS SPECIALIST Gender Identity Not on file Sexual Orientation Not on file Obstetrics History Last Filed Vital Signs Vital Sign Reading Time Taken Comments Blood Pressure - - Pulse - - Temperature - - Respiratory Rate 14 04/10/2021 10:25 AM ELECTRONIC PUBLICATIONS SPECIALIST Oxygen Saturation - - Inhaled Oxygen Concentration [...] age 65+ 2017 Pneumococcal series for age 50+ (1 of 1 - PCV) 2017 COVID-19 vaccine series (2023- season) 2023 11/12/2022, 12/24/2021, 07/19/2021, Additional history exists Influenza for age 65+ 11/30/2023 RSV vaccine for adults or (1 - 1-dose 75+ series) 11/28/2027 Insurance BLUE [employer] [place] [address] Care Teams Gas Processing Plant Operator Relationship Specialty Start Date End Date Nicol Crocker MD [address] [place] [address] PCP - General Family Practice 03/11/23
--- OUTSIDE RECORDS SUMMARY | 2024-04-15 06:08 | XMS_ITS | Clinical Summary ---
Author Organization [facility] Address [address] [address] Phone Care Team Providers Care Production Internship Name Role Phone Unavailable Primary Care Provider Unavailabl e Allergies Active Allergy Reactions Criticality Noted Date Comments Azithromycin Nausea Only Low 10/26/2008 Upset stomach Dust Mite Extract Other Low 08/30/2011 Gluten Meal Other Low 03/03/2020 Unable to digest Lactose Diarrhea Medium 12/07/2017 Diarrhea Spironolactone Other Low 10/24/2021 hyponatremia Sulfa Drugs Headache,Other Medium 10/26/2008 Medications alendronate (Fosamax) 35 MG tablet Take 35 mg by mouth one time a week. 4 Active atenolol (Tenormin) 100 MG tablet Take 100 mg by mouth one time a day. 2 Active carboxymethylce llulose sodium 0.5% (Refresh Plus) 0.5 % Solution Apply 1 Drop to eye at bedtime. Active cetirizine (ZyrTEC) 10 MG tablet Take 1 Tablet by mouth at bedtime. 6 Active diclofenac (Voltaren) 1 % Gel Apply 2 g topically four times a day as needed. 2 Active fluticasone propionate (Flonase) 50 MCG/ACT nasal spray Instill 2 Sprays nasally one time a day as needed. 2 Active levothyroxine (Synthroid) 50 MCG tablet Take 50 mcg by mouth one time a day. 2 Active valACYclovir (Valtrex) 1 GM tablet Take 1,000 mg by mouth. 2 Active Active Problems Problem Noted Date Diagnosed Date Idiopathic osteoarthritis 12/08/2023 Overview (12/08/2023): OT evaluated; this helped Labile hypertension due to clinical environment 11/26/2022 Carpal tunnel syndrome 05/27/2022 Overview (12/08/2023): Added automatically from request for surgery [id number] Diverticulitis 03/02/2022 Disease due to severe acute respiratory syndrome coronavirus 2 (SARS-CoV-2) 01/02/2022 Epiretinal membrane 03/16/2020 Mixed hyperlipidemia 10/13/2018 Overview (12/08/2023): Much improved as of 01/16 with weight loss and diet changes. No meds. Hypothyroidism 03/13/2017 Overview (12/08/2023): Synthroid started 02/14 Last Assessment & Plan: Follow-up TSH today. Adjust as needed. Irritable bowel syndrome with diarrhea 7 Overview (12/08/2023): Viberzi trial in 02/14 - didn't help. Last Assessment & Plan: Her plan is to return to the half dose Viberzi 2 to 3 times a week. She will portal a message to me regarding how this goes. Positive test for genetic ma rker of susceptibility to malignant neoplasm of breast 03/20/2016 Overview (12/08/2023): BRCA positive. Followed in [place]. MRI and Mammo six months apart Mother with stage IV ovarian cancer Last Assessment & Plan: Ordered her mammogram. Primary hypertension 10/19/2015 Overview (12/08/2023): toprol xl 50mg daily Last Assessment & Plan: Stable, well managed. No changes. Gastroesophageal reflux disease 03/11/2011 Overview (12/08/2023): PPI therapy. Immunizations Name Administration Dates Next Due COVID-19 MRNA VACCINE (PFIZE R TRI-SUCR)-Beth-12+ YRS 07/19/2021 COVID-19 MRNA Vaccine (Pfize r Bivalent TRI-SUCR) Beth 12+ YRS 11/12/2022 COVID-19 MRNA Vaccine (Pfize r MATEUS-SUCR) Beth 12+ Yrs Seasonal 09/02/2023 COVID-19 mRNA Vaccine (Pfize r-Purple 12+ Yrs) 12/23/2020,05/20/2020,04/28/2020 COVID-19 mRNA Vaccine Bivale nt (Moderna) 12/24/2021 Hepatitis B, Adult 02/16/1999,07/20/1998, 999 Influenza H1N1 With Preservative 03/17/2009 Influenza High Dose Quadrivalent 12/30/2019 Influenza Quad Preservative Free 01/21/2017,12/29 Influenza Quad Split 01/02/2015 Influenza Trivalent Preservative Free 12/07/2008 Influenza Trivalent Preserva tive Free (High Dose) 01/19/2019,01/20/2018 Influenza Trivalent With Preservative 11/25/2012 ,2011,2010 Influenza Unspecified Formulation 2014,01/06/2014,01/09/2011,2009 Influenza Vaccine, Quadrival ent, Adjuvanted (Fluad) 65+ Years 01/23/2023,02/04/2022,12/23/2020 Pneumococcal Conjugate, (Prevnar)13-valent 11/05/2017 Pneumovax 23 01/19/2019 Respiratory Syncytial Virus (RSV) Vaccine, Recombinant (Arexvy) 03/17/2023 TD >7Yrs Preservative Free 12/30/2019 TD >7yrs With Preservative 11/26/2001 Tdap (7 years and older) 12/07/2008 Zoster Shingrix 2 Dose (Shingles) 08/07/2017,06/2017 Zoster Unspecified Formulation 9(Deferred: Patient Refused),01/26/2019 Zoster Zostavax (Shingles) 09/04/2011 Social History Tobacco Use Types Packs/Day Years Used Date Smoking Tobacco: Never Smokeless Tobacco: Never Tobacco Cessation:Counseling Given: Not Answered [facility] Utilities Answer Date Recorded In the past 12 months has th e [employer], gas, oil, or water Business Exchange threatened to shut off services in your home? No 12/08/2023 PHQ-2 Answer Date Recorded PHQ-2 Total 0 12/08/2023 Hunger Vital Sign Answer Date Recorded Within the past 12 months, y ou worried that your food would run out before you got the money to buy more. Never true 12/08/19 24 Within the past 12 months, t he food you bought just didn't last and you didn't have money to get more. Never true 12/08/2023 PRAPARE - Transportation Answer Date Re corded In the past 12 months, has l ack of transportation kept you from medical appointments or from getting medications? No 11/2023 In the past 12 months, has l ack of transportation kept you from meetings, work, or from getting things needed for daily living? No 12/08/2023 Housing Stability Vital Sign Answer Luis e Recorded In the last 12 months, was t here a time when you were not able to pay the mortgage or rent on time? No 12/08/2023 In the past 12 months, how m any times have you moved where you were living? 0 12/08/2023 At any time in the past 12 m [facility], were you homeless or living in a prison (including now)? No 12/08/2023 Comments Unknown Sex and Gender Information Value Date Recorded Sex Assigned at Not on file Legal Sex Female 8:20 AM CDT Gender Identity Not on file Sexual Orientation Not on file Obstetrics History Last Filed Vital Signs Vital Sign Reading Time Taken Comments Blood Pressure 132/68 12/08/2023 1:15 PM CDT Pulse 54 12/08/2023 1:15 PM CDT Temperature 37.3 C (99.2 F) 12/08/2023 1:15 PM CDT Respiratory Rate 18 12/08/2023 1:15 PM CDT Oxygen Saturation 98% 12/08/2023 1:15 PM CDT Inhaled Oxygen Concentration - - Weight 58.8 kg (129 lb 10.1 oz) 12/08/2023 1:15 PM CDT Height 160 cm (5' 3) 12/08/2023 1:15 PM CDT Body Mass Index 22.96 12/08/2023 1:15 PM CDT Plan of Treatment Health Maintenance Due Date Last Done Comments CT Colonography 1952 Cologuard 1952 Colonoscopy 1952 Colorectal Cancer Screening 1952 FIT/FOBT 1952 MAMMO,SCREEN 1952 MEDICARE AWV 1952 Sigmoidoscopy 1952 DXA,FEMALES AGE 65 OR GREATER 2017 COVID-19 Vaccine ( season) 2023 09/02/2023, 11/12/2022, 12/24/2021, Additional history exists Influenza Vaccine Seasonal (Standing Order) (#1) 2023 01/23/2023, 02/04/2022, 12/23/2020, Additional history exists TETANUS (Standing Order) 12/29/2029 020, 12/07/2008, 11/26/2001 Hepatitis B Vaccine (Standing Order) Completed 02/16/1999, 07/20/1998, 04/06/1998 PERTUSSIS (Standing Order) Completed 12/07/2008 Shingrix (Zoster recombinant) vaccine (Standing Order) Completed 08/07/2017, 06/01/2017 Pneumococcal Vaccine: 65+ yrs (Standing Order) Completed 01/19/2019, 11/05/2017 RSV Vaccination (60+ yrs) (Abrysvo/Arexvy) Completed 03/17/2023 HPV Vaccine (Standing Order) Aged Out No longer eligible based on patient's age to complete this topic Insurance MEDICARE COST PART A&B Member Subscriber Plan / Payer (Ef fective 2023-Present) Name:MARIA GUADALUPE PEREYRA Member ID:[id number] Relation to Subscriber:Self Name:PereyraJordanMaria Guadalupe Subscriber ID:[id number] Payer ID:Not on file Group ID:Not on file Type:Medicare Address: [address] [facility]
--- OUTSIDE RECORDS SUMMARY | 2024-04-15 06:08 | XMS_ITS | Referral Summary ---
Author Organization [facility] Address [address] [place] [address] Care Team Providers Care Wheel Cleaner Name Role Phone Kike Qureshi M.D. Primary Care Provider Source Comments Patient records contain information from all sites at [facility]. For routine questions regarding patient records, call [phone] during business hours, M-F 8:00 AM - 5:00 PM Central Time. Record requests for emergency care only can be directed to [phone] at any time.[facility] Encounters Date Type Department Care Team Description 04/06/2024 Orders Only [facility] PCP TH VTT Kike Qureshi M.D. Hyperlipidemia Mixed; Hypothyroidism 02/06/2024 Refill Department of Family Medicine, [facility], in [address] [address] Kike Qureshi M.D. Med Refill from Last 3 Months Allergies Active Allergy [...] (05/27/2022): Added automatically from request for surgery [id number] Diverticulitis Colon 03/02/2022 Diverticulitis 03/02/2022 COVID-19 Infection 01/02/2022 Membrane Macula Epiretinal Right 03/16/2020 Hyperlipidemia Mixed 10/13/2018 Overview (01/13/2019): Much improved as of 01/16 with weight loss and diet changes. No meds. Cancer Skin Basal Cell Personal History 10/14/19 19 Hypothyroidism 03/13/2017 Overview (03/13/2017): Synthroid started 02/14 Assessment & Plan (03/13/2017 12:37 PM ORE DIGGER): Follow-up TSH today. Adjust as needed. Irritable Bowel Syndrome With Diarrhea 7 Overview (10/13/2018): Viberzi trial in 02/14 - didn't help. Assessment & Plan (03/13/2017 12:38 PM ORE DIGGER): Her plan is to return to the half dose Viberzi 2 to 3 times a week. She will portal a message to me regarding how this goes. Menopausal And Female Climacteric States 017 Assessment & Plan (03/13/2017 12:40 PM ORE DIGGER): Continue gabapentin. Carrier Breast Cancer Gene Mutation 03/20/2016 Overview (11/05/2017): BRCA positive. Followed in [place]. MRI and Mammo six months apart Mother with stage IV ovarian cancer Assessment & Plan (03/13/2017 12:39 PM ORE DIGGER): Ordered her mammogram. Breast Cancer Susceptibility Gene Mutation Famil y History 01/10/2016 Cancer Ovary Family History 01/10/2016 Overview (01/13/2019): 90-year-old mother diagnosed with stage IV ovarian cancer in the summer - in Oct 2017 Hypertension Essential Primary 10/19/2015 Overview (03/13/2017): toprol xl 50mg daily Assessment & Plan (03/13/2017 12:37 PM ORE DIGGER): Stable, well managed. No changes. Gastroesophageal Reflux [...] (11/11/2017): Added automatically from request for surgery [id number] Cataract Senile Nuclear Sclerosis Left 11/11/2017 10/13/2018 Overview (11/11/2017): Added automatically from request for surgery [id number] Hemorrhoids 03/13/2017 12/24/2019 Overview (03/13/2017): Topical steroids - nonbleeding Assessment & Plan (03/13/2017 12:38 PM ORE DIGGER): Patient would like to pursue surgical evaluation, but will wait until she has reached Medicare benefit age Screening Mammogram Average Risk Patient 03/13/2017 03/13/2017 Hay Fever 03/11/2011 12/24/2019 Overview (03/13/2017): Derek Khan. Immunizations Name Administration Dates Next Due H1N1 [...] How often do you attend chur or gnosticist services? More than 4 times per year 03/10/2022 Do you belong to any clubs o r organizations such as quaker groups, unions, fraternal or athletic groups, or [...] Answer Date Recorded PHQ-2 Score 0 11/11/2022 [facility] - Occupational Stress Questionnaire Answer Date [...] place to sleep or slept in a skilled nursing (including now)? No 03/10/2022 Nutrition Answer Date [...] PM CDT Legal Sex Female 2:47 AM ORE DIGGER Gender Identity Female 12/03/2017 1:56 PM CDT [...] on file Medical Devices Implanted Type Area Licensed Midwife Device Identifier Shelf Expiration Date Model / Serial / Lot Hardware E.G. Pins/Screws/Ro ds Hardware e.g. pins/screws/ rods Foot Description:Staple in each f oot Sympfony Implanted:Qty: 1 on 12/10/2017 by Jericho Hatfield M.D. at [facility] Ocular Lens Right: Eye [employer]ang 06/09/2022 [id number] / [id number] / N/A Tecnis Multifocal Iol Implanted:Qty: 1 on 12/24/2017 by Jeircho Hatfield M.D. at [facility] Ocular Lens [employer] 09/21/2021 [id number] / [id number] / Procedures Procedure Name Priority Date/Time Associated Diagnosis Comments BASIC METABOLIC PANEL, S/P Routine 11/12/2022 10:08 AM CDT Preoperative Exam THYROID-STIMULATING HORMONE-SENSITIVE (S-TSH) Routine 11/12/2022 10:08 AM CDT Hypothyroidism COLONOSCOPY Routine 05/07/2022 1:21 PM ORE DIGGER Diverticulitis LIPID PANEL, S Routine 02/28/2022 7:58 AM ORE DIGGER Hyperlipidemia Mixed COLOGUARD Routine 01/28/2022 9:40 AM [...] M.D. LAB BLOOD ADD-ON Final Resu lt [facility] [address] [facility] [place] [address], [facility] [place] [address] [place] [address] * (ABNORMAL) Basic Metabolic Panel (11/12/2022 10:08 [...] M.D. LAB BLOOD ADD-ON Final Resu lt [facility] [address] [place] [address], [facility] [place] [address] [place] [address] * (ABNORMAL) Lipid Panel (02/28/2022 7:58 AM ORE DIGGER) Triglycerides 53 mg/dL 02/28/2022 8:18 AM ORE DIGGER CNFL Comment: ----REFERENCE VALUE---- Normal: <150 mg/dL Borderline High: 150-199 mg/dL High: 200-499 mg/dL Very High: > or =500 mg/dL Cholesterol, Total 235(H) mg/dL 2021 8:18 AM ORE DIGGER CNFL Comment: ----REFERENCE VALUE---- Desirable: < 200 mg/dL Borderline High: 200 - 239 mg/dL High: > or = 240 mg/dL Cholesterol, LDL, Calculated 138(H) mg/dL 02/28/2022 8:18 AM ORE DIGGER CNFL Comment: ----REFERENCE VALUE---- Desirable: <100 mg/dL Above Desirable: 100-129 mg/dL Borderline High: 130-159 mg/dL High: 160-189 mg/dL Very High: >=190 mg/dL ----ADDITIONAL INFORMATION---- LDL cholesterol calculated using the Sommers/NIH equation. Cholesterol, HDL 88 >=50 mg/dL 02/29/20 8:18 AM ORE DIGGER CNFL Cholesterol, Non-HDL, Calculated 147 mg/dL 02/28/2022 8:18 AM [facility] CNFL Comment: ----REFERENCE VALUE---- Desirable: <130 mg/dL Above Desirable: 130-159 mg/dL Borderline High: 160-189 mg/dL High: 190-219 mg/dL Very High: > or =220 mg/dL Fasting (8 HR or more) yes 02/28/2022 8:00 AM [facility] CNMT Blood (Blood, Venous) 02/28/2022 7:58 AM ORE DIGGER 02/28/2022 8:00 AM ORE DIGGER us Ginette Grullon M.D. LAB BLOOD ADD-ON Final Resu lt [facility] [address] [place] [address], [facility] in [address] [address] * Cologuard-Sent Out Lab (01/28/2022 9:40 AM [...] (Sherman Shah al, N Engl J Med 2014;370(14):0722-7930) The normal value (reference range) for this assay is negative. COLOGUARD RE-SCREENING RECOMMENDATION: Periodic colorectal cancer screening is an important part of preventive healthcare for asymptomatic individuals at average risk for colorectal cancer. Following a negative Cologuard result, the [place] Cancer Society and U.S. Multi-Society Task Force screening guidelines recommend a Cologuard re-screening interval of 3 years. References: [place] Cancer Society Guideline for Colorectal Cancer Screening: https://www.cancer.org/cancer/fkjrr-bqubvw-zvdbgc/detection- diagnosis-staging/acs-recommendations.html.; Lencho DK, Mariam BELLA, Parag PatelK, Colorectal Cancer Screening: Recommendations for Physicians and Patients from the U.S. Multi-Society Task Force on Colorectal Cancer Screening , Am J Gastroenterology 2017; 112:9777-5909. TEST DESCRIPTION: Composite algorithmic analysis of stool [...] screened with both Cologuard and colonoscopy. (Sherman Wright et al, N Engl J Med 2014;370(14):2023-0596.) Cologuard may produce a false negative or false positive result (no colorectal cancer or precancerous polyp present at colonoscopy follow up). A negative Cologuard test result does not guarantee the absence of CRC or advanced adenoma (pre-cancer). The current Cologuard screening interval is every 3 years. (Citizen [place] Cancer Society and U.S. Multi-Society Task Force). Cologuard performance data in a 10,000 patient pivotal study using colonoscopy as the reference method can be accessed at the following location: www.[employer].Secure Outcomes/results. Additional description of the Cologuard test process, warnings and precautions can be found at www.cologuard.Secure Outcomes. Stool (Stool) 01/28/2022 9: 40 AM CDT 01/29/2022 4:27 PM CDT us Ginette Grullon M.D. LAB BODY FLUIDS AND STOOLS ORDERABLES Final Result [facility] [address] [place] [address] EX [facility] [address] [place] [address], [address] [place] [address] * BI Breast Screening Bilateral with Tomosynthesis [...] Annual Screening Mammogram ASSESSMENT: BI-RADS: 1: Negative. us Ginette Grullon M.D. IMG BI PROCEDURES Final Res ult * HCV Ab Scrn w/Reflex to HCV PCR, Serum (10/13/2018 10:00 AM CDT) HCV Ab Screen, S Negative Negative 10/14/19 19 3:49 PM CDT Comment: Biotin has been identified by the woven paper hat mender as a potential interfering substance. Higher concentrations of biotin may be found in multivitamins, hair/nail supplements, and workout supplements. If the result does not match clinical observations, repeat testing after patient refrains from the use of supplements for at least 12 hours. Blood (Blood, Venous) 10/13/2018 10:00 AM CDT 10/13/2018 2:01 PM CDT Narrative [facility] - 10/13/2018 3:49 PM CDT Specimen Information: Specimen ID: [id number] Specimen Type: Blood Specimen Collection Start Date: 10/13/2018 10:00 AM Specimen Received Date: 10/13/2018 2:01 PM Specimen ID: [id number] Specimen Type: Blood Specimen Collection Start Date: 10/13/2018 10:00 AM Specimen Received Date: 10/13/2018 2:01 PM us Maria Guadalupe Thornton M.D. LAB MICROBIOLOGY - BLO OD ORDERABLES Final Result [facility] [address] [place] [address], [facility] from Last 3 Months or Most Recently Relevant to Health Maintenance Insurance MEDICARE [facility] Advance Directives For more information, please contact: [phone] * Full Code (Latest Code Status on [...] Answer Comments Full Code: Discussed Care Teams Wheel Cleaner Relationship Specialty Start Date End Date Kike Qureshi M.D. [address] [place] [id number] PCP - General 07/08/22
--- OUTSIDE RECORDS SUMMARY | 2024-04-15 06:08 | XMS_ITS ---
Author Organization [facility] Address [address] [place] [address] Care Team Providers Care Therapeutic Support Staff Name Role Phone Unavailable Unavailable Unavailable Surgery Details Not on file Complications Check Surgery Details section. Procedure Estimated Blood Loss Check Surgery Details section. Procedure Findings Check Surgery Details section. Procedure Specimens Taken Check Surgery Details section.
--- OUTSIDE RECORDS SUMMARY | 2024-04-15 06:08 | XMS_ITS | Clinical Summary ---
Author Organization [facility] Address [address] [place] [address] Care Team Providers Care Workers Compensation Attorney Name Role Phone Needs Pcp, Assignment Primary Care Provider [phone] Source Comments You are receiving this document as you are listed as the primary care provider,follow-up provider, or the patient has been referred to you for consultation.This is in compliance with the Medicare and[facility],which states Providers who transition their patient to another setting of careor provider of care or refers their patient to another provider of care shouldprovide summary care record for each transition of care or referral. [employer] Allergies Active Allergy Reactions Criticality Noted Date [...] clogged pores 45 g 11 07/22/2022 Active alendronate (FOSAMAX) 35 MG tablet Take 1 Tablet (35 mg) by mouth once every week. 01/19/2024 Active erythromycin (ERYGEL) 2 % gelIndications:Chron ic paronychia of finger of right hand,Chronic paronychia of finger of left hand Apply topically two times a day. Use on thumbnails 30 g 11 02/12/2024 Active clobetasol (TEMOVATE) 0.05 % creamIndications:Chr onic paronychia of finger of right hand,Chronic paronychia of finger of left hand Apply thin layer once daily the skin at the base of the nail plate of affected nails. Stop when redness resolves or new cuticle is present. Never use on face, skin folds, or normal skin. 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; Chronic paronychia of finger of left hand 01/20/2024 10:45 AM CDT Procedure Visit [facility] [address], [address] [place] [address] Odessa Velasco MD LASER TREATMENT (Facial redness and blood vessels on face.); NAIL PROBLEM (Concerns for black discoloration of left and right thumbnails past few weeks.) from Last 3 Months Social History Tobacco Use Types Packs/Day Years Used Date Smoking Tobacco: Never Assessed Sex and Gender Information Value Date Recorded Sex Assigned at Not on file Gender Identity Not on file Sexual Orientation Not on file Plan of Treatment Upcoming Encounters Date Type Department Care Team (Late [facility]) Description 04/21/2024 10:45 AM FREIGHT CAR REPAIRER Appointment [place] [facility] [address] [place] [address] Ora Ye MD, PhD [address] [place] [id number] 07/27/2024 10:30 AM CDT Appointment [facility] [address], [address] [place] [id number] [place] [address] [place] [id number] Health Maintenance Due Date Last Done Comments Colon Cancer Screening Plan Due 1950 Hep C Screening (Preventive Services) 1950 Cholesterol 1997 Medicare Annual Wellness Visit 11/05/2018 11/05/2017 Mammogram 01/17/2023 01/17/2022, 11/30, 10/19/2019, Additional history exists COVID-19 Vaccine ( season) 2023 09/02/2023, 11/12/2022, 12/24/2021, Additional history exists RSV (1 - 1-dose 75+ series) 11/28/2027 DTaP/Tdap/Td (3 - Tdap) 12/29/2029 12/30/2019, 12/07 Dexa Completed 07/17/2017 Pneumococcal 65+ Yrs Completed 01/19/2019, 11/06/19 18 Zoster/Shingles Completed 01/26/2019, 07/29, 06/01/2017, Additional history exists Influenza Completed 01/20/2024, 12/30, 02/04/2022, Additional history exists HepA Aged Out No longer eligi ble [...] on patient's age to complete this topic Care Teams Workers Compensation Attorney Relationship Specialty Start Date End Date Needs Pcp, [place], [place] [phone] PCP - General 03/08/22
[2024-04-15] MEDS: SODIUM CHLORIDE 0.9 % (FLUSH) 10 ML SYRINGE IVF (06:35)
[2024-04-15] MEDS: 0.9 % SODIUM CHLORIDE 500 ML 500 ML 100 ML IV (06:35)
[2024-04-15] MEDS: CEFAZOLIN 2 GM INJ IVP (07:38)
[2024-04-15] MEDS: BUPIVACAINE 0.25% 30 ML INJECTION (08:18)
--- NOTE | 2024-04-15 08:19 | P.ORPRC_ITS ---
Procedure Note Date of procedure: 04/15/24 Procedure: PREOPERATIVE DIAGNOSIS: Right total knee arthroplasty patellar clunk syndrome POSTOPERATIVE DIAGNOSIS: Right total knee arthroplasty patellar clunk syndrome NAME OF OPERATION: Right total knee arthroplasty arthroscopic debridement SURGEON: Mynor Rosas MD INSURANCE RISK ANALYST: EARL Denney ANESTHESIA: Spinal ESTIMATED BLOOD LOSS: 0 mL COMPLICATIONS: None SPECIMENS: None DRAINS: None PREOPERATIVE ANTIBIOTICS: Ancef 1 g INDICATIONS: The patient is a 73-year-old with a history of right total knee arthroplasty patellar clunk syndrome. Operative intervention was recommended. The risks, benefits and expected outcomes were discussed in detail. These included but were not limited to: Infection, bleeding, injury to blood vessel or nerve, venous thromboembolism. All questions were answered to their satisfaction. PROCEDURE: Spinal anesthesia was administered. The patient was placed supine on the operating room table. The right lower extremity was prepped and draped in the usual sterile fashion. The limb was exsanguinated with the Ravinder bandage. The pneumatic tourniquet was inflated to 300 mmHg. A standard anterolateral portal was established. The arthroscope was introduced. The working portal was established anteromedially. Diagnostic arthroscopy was performed with findings as follows: The patellar component is intact with circumferential scarring surrounding it. The femoral component is normal, the tibial polyethylene is normal. The scarring posterior to the patellar tendon was debrided with the radiofrequency probe and shaver. A superolateral portal was placed. Then we aggressively debrided around the patellar component and posterior to the quads tendon with the shaver and radiofrequency probe. Arthroscopic instruments were removed, the portal sites were closed with a 3-0 nylon. Portals were injected with 0.25% Marcaine without epinephrine. A dry dressing was applied, the tourniquet was released. Sponge and needle counts were correct x 2. The patient tolerated the procedure well. There were no apparent complications. They were carefully transferred to the hospital bed and taken to the postanesthesia care unit in satisfactory condition. PLAN: The patient will be discharged to home. They may weightbear as tolerates. Range of motion will be unrestricted. They will follow up in the office in 2 weeks for a wound check and suture removal.
--- NOTE | 2024-04-15 08:32 | CRLHL7_ITS ---
For Patients: As a result of the Cures Act, medical imaging exams and procedure reports are released immediately into your electronic medical record. You may view this report before your referring provider. If you have questions, please contact your health care provider. Indication: Postop knee Technique: Two views right knee Findings/Impression: Hardware from a right total knee arthroplasty is in satisfactory position. Bone alignment is normal. No sign of acute fracture. Postop changes are within normal limits. Dictated by Hemant Sheth MD @ 04/15/2024 10:15:59 AM (Electronically Signed)
--- NOTE | 2024-04-15 08:34 | P.ANES_ITS ---
Anesthesia Charges Start Date/Time Anesthesia Start Date: 04/15/24 Anesthesia Start Time: 07:21 Stop Date/Time Anesthesia Stop Date: 04/15/24 Anesthesia Stop Time: 08:29 Summary Extremes of Age - Over 70 or under 1: MECHANICAL TEST ENGINEER Coding CPT Codes CPT Codes: ANESTH KNEE ARTHROPLASTY - 99447 ([id number]) P2 - PATIENT W/MILD SYST DISEASE, QK - BIOMETRICS INSTRUCTOR 2-4 CNCRNT ANES PROC, QX - MECHANICAL TEST ENGINEER SVC W/ MD MED DIRECTION Additional Codes: Summary - Extremes of Age - Over 70 or under 1: MECHANICAL TEST ENGINEER ([id number])
--- NOTE | 2024-04-15 08:34 | W.ANESCHARGE ---
Anesthesia Charges Start Date/Time Anesthesia Start Date: 04/15/24 Anesthesia Start Time: 07:21 Stop Date/Time Anesthesia Stop Date: 04/15/24 Anesthesia Stop Time: 08:29 Summary Extremes of Age - Over 70 or under 1: LABORER PULLET FARM Coding CPT Codes CPT Codes: ANESTH KNEE ARTHROPLASTY - 33255 ([id number]) P2 - PATIENT W/MILD SYST DISEASE, QK - DINKEY LOCOMOTIVE OPERATOR 2-4 CNCRNT ANES PROC, QX - LABORER PULLET FARM SVC W/ MD MED DIRECTION Additional Codes: Summary - Extremes of Age - Over 70 or under 1: LABORER PULLET FARM ([id number])
--- NOTE | 2024-04-15 08:40 | P.ANES_ITS ---
Anesthesia Charges Start Date/Time Anesthesia Start Date: 04/15/24 Anesthesia Start Time: 07:21 Stop Date/Time Anesthesia Stop Date: 04/15/24 Anesthesia Stop Time: 08:29 Summary Extremes of Age - Over 70 or under 1: MDA Coding CPT Codes CPT Codes: ANESTH KNEE JOINT SURGERY - 03767 ([id number]) P2 - PATIENT W/MILD SYST DISEASE, QK - CERTIFIED NURSE OPERATING ROOM 2-4 CNCRNT ANES PROC, QX - COAL EQUIPMENT OPERATOR SVC W/ MD MED DIRECTION Additional Codes: Summary - Extremes of Age - Over 70 or under 1: MDA ([id number])
--- NOTE | 2024-04-15 08:40 | W.ANESCHARGE ---
Anesthesia Charges Start Date/Time Anesthesia Start Date: 04/15/24 Anesthesia Start Time: 07:21 Stop Date/Time Anesthesia Stop Date: 04/15/24 Anesthesia Stop Time: 08:29 Summary Extremes of Age - Over 70 or under 1: MDA Coding CPT Codes CPT Codes: ANESTH KNEE JOINT SURGERY - 25645 ([id number]) P2 - PATIENT W/MILD SYST DISEASE, QK - DOLLY DRIVER 2-4 CNCRNT ANES PROC, QX - SOCIAL SERVICES COUNSELOR SVC W/ MD MED DIRECTION Additional Codes: Summary - Extremes of Age - Over 70 or under 1: MDA ([id number])
--- NOTE | 2024-04-15 08:47 | SUR.PHASEI ---
Patient arrived to PACU awake, stated no pain or nausea, comfortable. Patient taking ice chips, talkative. Active Ice applied, xray completed.
--- NOTE | 2024-04-15 08:55 | SUR.PHASEI ---
Patient meets discharge criteria for PACU.
== END 2024-04-15 10:16 | disposition home or self-care (01) ==
LOC: OR 06:05
PROVIDERS: PCP Internal Medicine; Visit Provider Orthopaedic Surgery
PROC: (CPT 29870; principal; 2024-04-15 07:15)
DX: M25.861 Other specified joint disorders, right knee (principal)
CPT/HCPCS: 29877; 01400; 01402; 73560; 99100; J0665; J0690; J1100; J1171; J2405; J2704; J7030

== ENCOUNTER 2024-04-22 14:33 | Outpatient (CLI) | payer MEDICARE, BC, SELFPAY ==
--- NOTE | 2024-04-22 14:40 | CRLHL7_ITS ---
For Patients: As a result of the Century Cures Act, medical imaging exams and procedure reports are released immediately into your electronic medical record. You may view this report before your referring provider. If you have questions, please contact your health care provider. BILATERAL SCREENING MAMMOGRAM WITH COMPUTER-AIDED DETECTION AND TOMOSYNTHESIS TECHNIQUE: CC and MLO views were obtained. These mammographic images have been obtained using full-field digital technique. These mammographic images were interpreted with the benefit of computer-aided detection. Breast Tomosynthesis was used in this interpretation. COMPARISON FILM: 03/06/23, 01/17/22, 12/21/20. FINDINGS: There are scattered areas of fibroglandular density. IMPRESSION: There is no radiographic evidence for malignancy. ASSESSMENT: BI-RADS Category 1: Negative RECOMMENDATION: Routine screening mammogram in 1 year. A lay language report of this examination will be provided to the patient. Hemant Sheth M.D. Diagnostic Radiologist [email or web address] SP/Dictated by: Hemant Sheth MD @ 04/26/2024 9:53:00 AM (Electronically Signed)
== END 2024-04-22 14:34 | disposition home or self-care (01) ==
LOC: MAMMO 14:34
PROVIDERS: PCP Internal Medicine; Visit Provider Internal Medicine
DX: Z12.31 Encounter for screening mammogram for malignant neoplasm of breast (principal)
CPT/HCPCS: 77063; 77067

== ENCOUNTER 2024-07-20 08:45 | Outpatient (RCR) | payer MEDICARE, BC, SELFPAY ==
--- NOTE | 2024-06-08 11:28 | PT.OPEX ---
PT [place] Outpatient Eval PT [facility] Outpatient Eval Start: 06/08/24 07:31 Freq: Status: Active Protocol: Document 06/08/24 07:31 CRP (Rec: 06/08/24 11:26 CRP [id number]) E-signed By Will Sanchez PT Physical Therapy Outpatient Evaluation Insurance Information Recert Due Date 09/06/24 Insurance Name Medicare B Medical Diagnosis Pain in thoracic spine Chronic pain Referring MD Dr Davis Subjective Subjective Pt has had a 5 yr hx of thoracic spine pain. Pain is more L sided but more recently the R side has been an issue. Pain is located about T7-10. Pt notes that with wrapping and cooking over Martina she really aggravated her back. Has been bad lately. Pain increases with walking - she ends up leaning forward. Working on staying up tall does help. Any activity that makes her bend forward will increase her pain. Currently she does get some help stretching: Hooklying rotation , piriformis stretch, leaning back over ottoman. Does have L thoracic spine numb feeling. No lower extremity sxs. PMHx Osteopenia, bilat TKA 2022, partial colon removal 2022 Pain Comments -11/07 Current Work Status Retired Objective Other/Pertinent Objective Posture: Increased thoracic kyphosis Trunk ROM: FLex WNL, Ext min dec, R SB WNL, L SB min dec, R rot WNL, L rot min dec MMT: Myotomes WNL. bilat hip ext and bilat hip abd 4-/5. Abdominal 4-/5. SLR negative bilat Segmental testing: Hypomob T4- 10 at grade 3-. Rib springs T7-10 hypomob on L at grade 3- . Functional Test Performed & Score Oswestry 22 Assessment Assessment/Impression Pt presents to the clinic with long standing issues of thoracic spine pain. Pts signs and sxs are consistent with thoracic spine nociceptive pain mechanisms characterized by painful hypomobility, trunk weakness, poor postural control and poor tolerance to wt bearing functional activity. Skilled PT is necessary to incorporate ther ex, nm irvin, manual therapy and pt education to decrease pain and improve functional mobility. 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 Pt will be independent with HEP in 8 weeks. 2. Pt will walk for exer x 30 min with 80% decrease in pain in 10 weeks. 3. Pt will complete nursing home physician for 60 minutes without c.o in 12 weeks. Coordination/Communication With Referral Source Treatment Plan/Direct Interventions Manual Therapy,Neuromuscular Re-ed,Self-Care/Home Management,Therapeutic Activities,Therapeutic Exercises Frequency/Duration 1-2x/wk for 12 weeks Patient Will Be Discharged From Therapy Completion of LTG(s),Skills Plateau,Independent w/HEP, Independently Progressing Evaluation Billing Untimed Code Treatment Minutes 40 Complexity Moderate Certification Information Initial Certification Date 06/08/24 Ending Certification Date 09/06/24 Provider Signature Required Yes Provider Signature Shows Agreement With POC & Medical Necessity Physician NPI Number Write NPI# Here Physician Comment/Change : Physician Signature & Date Requested Please Sign/Date Here
== END 2024-11-17 23:59 | disposition home or self-care (01) ==
PROVIDERS: PCP Internal Medicine; Visit Provider Family Medicine
DX: G89.29 Other chronic pain (principal); M54.6 Pain in thoracic spine; M40.04 Postural kyphosis, thoracic region; Z51.89 Encounter for other specified aftercare
CPT/HCPCS: 97110; 97140; 97162

== ENCOUNTER 2024-11-01 08:35 | Outpatient (CLI) | payer MEDICARE, BC, SELFPAY | END 2024-11-01 08:36 | disposition home or self-care (01) | LOC: NFLDREF 11-03 15:18 | PROVIDERS: PCP Internal Medicine; Referring Provider Internal Medicine; Visit Provider Internal Medicine | DX: E78.5 Hyperlipidemia, unspecified (principal); M85.80 Other specified disorders of bone density and structure, unspecified site; E03.9 Hypothyroidism, unspecified | CPT/HCPCS: 80061; 82306; 84443 ==

== ENCOUNTER 2025-01-06 14:28 | Outpatient (CLI) | payer MEDICARE, BC, SELFPAY | END 2025-01-06 14:29 | disposition home or self-care (01) | LOC: AMB 01-07 13:20 | PROVIDERS: PCP Internal Medicine; Visit Provider Family Medicine | DX: R29.810 Facial weakness (principal) | CPT/HCPCS: A0425; A0427 ==

== ENCOUNTER 2025-01-06 14:50 | Emergency (ER) | payer MEDICARE, BC, SELFPAY ==
--- OUTSIDE RECORDS SUMMARY | 2025-01-06 14:53 | XMS_ITS | Clinical Summary ---
[facility] Address [address] [place] [address] Care Team Providers Care Biofuels Technology Development Manager Name Role Phone Needs Pcp, Assignment Primary Care Provider [phone] Source Comments You are receiving this document as you are listed as the primary care provider,follow-up provider, or the patient has been referred to you for consultation.This is in compliance with the Medicare and[facility] EHR Incentive Program,which states Providers who transition their patient to another setting of careor provider of care or refers their patient to another provider of care shouldprovide summary care record for each transition of care or referral. [facility] Allergies Active Allergy Reactions Criticality Noted Date Comments Sulfa Antibiotics Headache 09/21/2021 Medications levothyroxine (SYNTHROID) 50 MCG tablet Take 1 Tablet (50 mcg) by mouth daily. 2 Active valACYclovir (VALTREX) 1 g tablet Take 4 Tablets (4,000 mg) by mouth Daily and as needed. 2 Active atenolol (TENORMIN) 100 MG tablet Take 1 Tablet (100 mg) by mouth daily. 2 Active tretinoin (RETIN-A) 0.025 % cream Apply to affected area face q pm to treat acne and clogged pores 45 g 11 3 Active alendronate (FOSAMAX) 35 MG tablet Take 1 Tablet (35 mg) by mouth once every week. 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 Use on thumbnails 30 g 11 4 Active clobetasol (TEMOVATE) 0.05 % creamIndication s:Chronic paronychia of finger of right hand,Chronic paronychia of finger of left hand Apply thin layer once daily the skin at the base of the nail plate of affected nails. Stop when redness resolves or new cuticle is present. Never use on face, skin folds, or normal skin. 30 g 1 4 Active Active Problems No known active problems Social History Tobacco Use Types Packs/Day Years Used Date Smoking Tobacco: Never Assessed Comments Unknown Sex and Gender Information Value Date Recorded Sex Assigned at Not on file Legal Sex Female 5:11 AM CDT Gender Identity Not on file Sexual Orientation Not on file Plan of Treatment Upcoming Encounters Date Type Department Care Team (Late st Contact Info) Description 07/28/2025 11:00 AM CDT Appointment [facility] [address], [facility] [address] [place], [place] [phone] [place] [address] [place], [place] [id number] Health Maintenance Due Date Last Done Comments Colon Cancer Screening Plan Due 1950 Hep C Screening (Preventive Services) 1950 Cholesterol 1997 Medicare Annual Wellness Visit 11/05/2018 11/05/2017 Mammogram 01/17/2023 01/17/2022, 11/30, 10/19/2019, Additional history exists COVID-19 Vaccine ( season) 2024 09/02/2023, 11/12/2022, 12/24/2021, Additional history exists Influenza Vaccine (#1) 2024 , 01/23/2023, 02/04/2022, Additional history exists RSV Vaccine (1 - 1-dose 75+ series) 11/28/2027 DTaP/Tdap/Td Vaccine (3 - Tdap) 12/29/2029 12/30/2019, 12/07/2008 Dexa Completed 07/17/2017 Pneumococcal Vaccine 50+ Yrs Completed 01/19/2019, 11/05/2017 Zoster/Shingles Vaccine Completed 01/27/20 19, 08/07/2017, 06/01/2017, Additional history exists HepA Vaccine Aged Out No longer eligi ble based on patient's age to complete this topic HepB Vaccine Aged Out No longer eligi ble based on patient's age to complete this topic Hib Vaccine Aged Out No longer eligi ble based on patient's age to complete this topic MCV4 Vaccine Aged Out No longer eligi ble based on patient's age to complete this topic Meningococcal B Vaccine Aged Out No l onger eligible based on patient's age to complete this topic Insurance MEDICARE MANAGED CARE [facility] [employer] Care Teams Biofuels Technology Development Manager Relationship Specialty Start Date End Date Needs Pcp, [place] [address] PCP - General 03/08/22
--- OUTSIDE RECORDS SUMMARY | 2025-01-06 14:53 | XMS_ITS | Clinical Summary ---
Author Organization [facility] Address [address] [address] Phone Care Team Providers Care Senior Consumer Insights Consultant Name Role Phone Unavailable Primary Care Provider [...] (12/08/2023): Added automatically from request for surgery [id number] Diverticulitis 03/02/2022 Disease due to severe acute [...] 03/20/2016 Overview (12/08/2023): BRCA positive. Followed in [place]. MRI and Mammo six months apart Mother with stage IV ovarian cancer Last Assessment & Plan: Ordered her mammogram. Primary hypertension 10/19/2015 Overview (12/08/2023): toprol xl 50mg daily Last Assessment & Plan: Stable, well managed. No changes. Gastroesophageal reflux disease 03/11/2011 Overview (12/08/2023): PPI therapy. Immunizations Immunization Administration Dates Next Due COVID-19 MRNA VACCINE [...] 01/21/2017,12/29 Influenza Quad Split 01/02/2015 Influenza Trivalent Adjuvant ed Preservative Free (Fluad) 01/20/2024 Influenza Trivalent Preservative Free 12/07/2008 Influenza Trivalent [...] 9(Deferred: Patient Refused),01/26/2019 Zoster Zostavax (Shingles) 09/04/2011 Surgical History Surgery Date Site/Laterality Comments COLONOSCOPY 05/07/2022 N/A [facility] per [facility] Social History Tobacco Use Types Packs/Day Years Used Date Smoking Tobacco: Never Smokeless Tobacco: Never Tobacco Cessation:Counseling Given: Not Answered [facility] Utilities Answer Date Recorded In the past 12 months has th e electric, gas, oil, or water company threatened to shut off services in your [...] any time in the past 12 m [facility], were you homeless or living in a fpc (including now)? No 12/08/2023 Comments Unknown Sex [...] Date Last Done Comments CT Colonography 1950 Colonoscopy 1950 FIT/FOBT 1950 MAMMO,SCREEN 1950 MEDICARE AWV 1950 Sigmoidoscopy 1950 DXA,FEMALES AGE 65 OR GREATER 2017 COVID-19 Vaccine ( season) 2024 09/02/2023, 11/12/2022, 12/24/2021, Additional history exists Influenza Vaccine Seasonal (Standing Order) (#1) 2024 01/20/2024, 01/23/2023, 02/04/2022, Additional history exists Cologuard 01/28/2025 01/28/2022, 12/30, 01/25/2019 Colorectal Cancer Screening 01/28/2025 TETANUS (Standing Order) 12/29/2029 020, 12/07/2008, 11/26/2001 Hepatitis B Vaccine (Standing Order) Completed 02/16/1999, 07/20/1998, 04/06/1998 PERTUSSIS (Standing Order) Completed 12/07/2008 Shingrix (Zoster recombinant) vaccine (Standing Order) Completed 08/07/2017, 06/01/2017 Pneumococcal Vaccine: 50+ yrs (Standing Order) Completed 01/19/2019, 11/05/2017 RSV Vaccination (60+ yrs) (Abrysvo/Arexvy) Completed 03/17/2023 HPV Vaccine (Standing Order) Aged Out No longer eligible based on patient's age to complete this topic Insurance MEDICARE COST PART [employer] [place] [employer]
[2025-01-06 15:02] VITALS: BP 200/90; PULSE 62; RESP 16; TEMP 36.8; O2SAT 100; BMI 23.0
[2025-01-06 15:08] VITALS: BP 200/90; PULSE 57; O2SAT 97
[2025-01-06 15:09] VITALS: PULSE 56; O2SAT 99
--- NOTE | 2025-01-06 15:11 | ED_ITS ---
HPI - Neuro Symptoms/Deficit General Time Seen by Provider: 14:52 Date Seen: 01/06/25 Chief Complaint: Neuro Symptoms/Altered Deficit Stated Complaint: facial droop Time Seen by Provider: 01/06/25 14:52 Source: patient, EMS and RN notes reviewed Mode of arrival: EMS Limitations: no limitations History of Present Illness HPI Narrative: This 74-year-old female was referred to us from urgent care with concern of stroke with elevated blood pressure and right facial changes. Maria Guadalupe is seen on arrival. She notes that she felt like her lower right upper lip and nose felt funny last night, actually took some Valtrex thinking she might be getting a cold sore. When she gets Novocain, her lip will deviate the side and was feeling like that. She states her right face just feels different, feels funny. She notes similar symptom in her left ear but not necessarily any hearing change. Her face has had progressive drooping. She notes that she is not blinking on the right side. No headache. She has a history of TIA or CVA. She does baseline take atenolol levothyroxine. She notes significant stress. Before she went into Urgent Care, her blood pressure was 150 over 70s at home. When she does track it, usually is 140s over 70s. She notes that she has significant white coat hypertension. Her face was drooping on the right side last night around 9:00 p.m.. This morning she did try drinking some water, had some dribbling out the right side of her mouth. She has not tried eating, does not note any sensory changes far as loss of taste on the right side of the tongue. Baseline she has dry eye symptoms but does note that her right eye is feeling dry. She does states that she did put some lubricating drops earlier in. She feels just funny in the right forehead down through the right side of the face. It is not truly number tingly just feels different. Related Data Home Medications ?Medication ?Instructions ?Recorded ?Confirmed cetirizine 10 mg capsule (Zyrtec) 10 mg PO HS 10/16/22 11/04/24 calcium PO 03/13/23 11/04/24 [id number] 250 mg-dha 90 1 cap PO QAM 5 11/04/24 mg-epa 160 [id number] capsule (Ocuvite Adult 50 Plus) Previous Rx's ?Medication ?Instructions ?Recorded acetaminophen 500 mg capsule 500 - 1,000 mg (1 - 2 x 5 00 mg) PO 12/03/22 Q6H PRN pain #100 caps valacyclovir 1 gram tablet 2,000 mg (2 x 1 gram) PO Q1 2H 1 04/22/24 day #12 tabs alendronate 35 mg tablet 35 mg PO QWEEK #12 tabs 10/22 atenolol 100 mg tablet 100 mg PO DAILY #90 tabs 10/22 levothyroxine 50 mcg tablet 50 mcg PO DAILY #90 tabs 0 11/04/24 prednisone 20 mg tablet 60 mg (3 x 20 mg) PO DAILY 6 days 01/06/25 #18 tabs valacyclovir 1 gram tablet 1,000 mg PO TID #21 tabs Allergies Allergy/AdvReac Type Severity Reaction Status Date / Time Sulfa (Sulfonamide Allergy Unknown Verified 01/06/25 15:02 Antibiotics) azithromycin Allergy upset Verified 11/04/24 08:50 stomach cefprozil Allergy Verified 11/04/24 08:50 gluten Allergy unable to Verified 11/04/24 08:50 digest lactose Allergy Diarrhea Verified 11/04/24 08:50 spironolactone Allergy hyponatremi Verified 11/04/24 08:50 a Review of Systems Narrative: As per HPI. [facility] Medical History History of colonic diverticulitis ?Z87.19 - Personal history of other diseases of the digestive system (ICD-10) Surgical History History of arthroscopy of right knee (04/15/24) ?Z98.890 - Other specified postprocedural states (ICD-10) History of total hysterectomy with bilateral salpingo-oophorectomy (BSO) ?Z90.710 - Acquired absence of both cervix and uterus (ICD-10) ?Z90.722 - Acquired absence of ovaries, bilateral (ICD-10) ?Z90.79 - Acquired absence of other genital organ(s) (ICD-10) History of partial colectomy ?Z90.49 - Acquired absence of other specified parts of digestive tract (ICD- 10) History of basal cell carcinoma excision ?Z98.890 - Other specified postprocedural states (ICD-10) ?Z85.828 - Personal history of other malignant neoplasm of skin (ICD-10) History of colonoscopy (05/07/22) ?Z98.890 - Other specified postprocedural states (ICD-10) Status post cataract extraction of both eyes with insertion of intraocular lens (11/2017) ?Z98.41 - Cataract extraction status, right eye (ICD-10) ?Z98.42 - Cataract extraction status, left eye (ICD-10) ?Z96.1 - Presence of intraocular lens (ICD-10) 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) ?Z96.653 - Presence of artificial knee joint, bilateral (ICD-10) History of carpal tunnel release of both wrists (05/2022) ?Z98.890 - Other specified postprocedural states (ICD-10) H/O dilation and curettage (1981) ?Z98.890 - Other specified postprocedural states (ICD-10) Hx of hammer toe correction (2008) ?Z98.890 - Other specified postprocedural states (ICD-10) ?Z87.39 - Personal history of other diseases of the musculoskeletal system and connective tissue (ICD-10) S/P foot surgery, left (2009) ?Z98.890 - Other specified postprocedural states (ICD-10) History of bunionectomy (1987) ?Z98.890 - Other specified postprocedural states (ICD-10) History of tonsillectomy (1962) ?Z90.89 - Acquired absence of other organs (ICD-10) Family History Mother Ovarian cancer High blood pressure Hypothyroidism Osteoporosis Rheumatoid arthritis Thyroid cancer Father Prostate cancer, Onset Age: 65 High blood pressure Brother Prostate cancer High blood pressure Cardiac arrhythmia BRCA2 positive Daughter Diabetes Daughter Skin cancer Grandfather Cardiovascular disease Dementia Sister BRCA2 positive High blood pressure Ovarian cancer, Onset Age: 61 Rectal cancer Sister High blood pressure Aunt Ovarian cancer, Onset Age: 50 Social History Narrative: . Denies tobacco. Drinks a glass of wine with dinner 5 days a week. Denies recreational drug use. What is your current living situation?: I presently have a place to live Problems where you live: no known problems In the past 12 months, utilities in danger of being shut off: no In past 12 months, lack of transportation kept you from medical appts, meetings, work, or getting things needed for daily living: no In the past 12 mos, have been you worried that your food would run out before you had money to buy more?: never true In the past 12 mos, the food you bought just didn't last and you didn't have money to buy more?: never true Smoking Status: Never smoker Do you use any of these nicotine containing products: None Second hand tobacco smoke exposure: No How often do you have a drink containing alcohol: 4 or more times a week Alcohol type: wine How many standard drinks containing alcohol do you have on a typical day: 1 or 2 How often do you have six or more drinks on one occasion: Never AUDIT-C Alcohol total score: 4 Non-prescribed substance use: denies use Caffeine: No How often does anyone, including family, friends and others, physically hurt you : never How often does anyone, including family, friends and others, insult or talk down to you: never How often does anyone, including family, friends and others, threaten you with harm: never How often does anyone, including family, friends and others, scream or curse at you: never Are you using contraception or practicing any form of control: No service: No Exam Const: Vital Signs, click to edit/add: Vital Signs - 24 hr 01/06/25 15:02 Temperature 98.3 F Pulse Rate [Pulse Oximeter] 62 Respiratory Rate 16 Blood Pressure [Ri ght Upper Arm] 200/90 H Pulse Oximetry 100 Oxygen Delivery Me thod Room Air Maria Guadalupe is seen on arrival, she is alert, interactive, no apparent distress. Her speech is normal and the sink. Pupils are equal round, sclera clear, extraocular muscles intact. Just visually looking at her baseline, no decreased wrinkling on the right forehead, slight drooping of the right corner of her mouth. She is not blinking on the right side. She can raise her right eyebrow some but it is not as elevated as the left. She can close eyelid but do note maybe 1-2 mm lack of full closure of the eyelid. There is the ability to smile but it is not symmetrical, still some drooping on the right. Oropharynx is normal. Neck is supple without any adenopathy. Right TM and canal are normal, no visual vesicles or swelling or erythema. Lungs are clear, no wheezing or crackles, tachypnea. CV regular rate and rhythm no murmur. Strength of arms and legs normal symmetrical. She can feel normal light touch sensation throughout her face on both sides, no deficit noted neurologically in arms or legs. Documenting provider has reviewed patient's vital signs: yes Course Course ED Course: Will just talk to neuro quickly given her blood pressure is elevated but does sound like white coat hypertension. Reevaluation(s) Time of Reevaluation #1: 15:45 Reevaluation #1: Did get patient her 1st dose of prednisone here. Sent Valtrex in for her and the remaining prednisone. Consultations Consultation #1: Did talk to Dr. Glass. He agrees that this sounds like Burton's palsy. Would not feel that any imaging is necessary. We can do what we see fit with blood pressure. Time: 15:04 Vital Signs Vital signs: Initial Vital Signs Temperature 98.3 F 01/06/25 15:02 Temperature Source Temporal Artery Scan 01/06/25 15:02 Pulse Rate 62 01/06/25 15:02 Respiratory Rate 16 01/06/25 15:02 Blood Pressure 200/90 H 01/06/25 15:02 Blood Pressure Mean 126 H 01/06/25 15:02 Pulse Oximetry 100 01/06/25 15:02 Oxygen Delivery Method Room Air 01/06/25 15:02 Vital Signs Temperature 98.3 F 01/06/25 15:02 Pulse Rate 62 01/06/25 15:02 Respiratory Rate 16 01/06/25 15:02 Blood Pressure 200/90 H 01/06/25 15:02 Pulse Oximetry 100 01/06/25 15:02 Oxygen Delivery Method Room Air 01/06/25 15:02 Temperature 98.3 F 01/06/25 15:02 Pulse Rate 62 01/06/25 15:02 Respiratory Rate 16 01/06/25 15:02 Blood Pressure 200/90 H 01/06/25 15:02 Pulse Oximetry 100 01/06/25 15:02 Oxygen Delivery Method Room Air 01/06/25 15:02 Medications Administered Medications: Discontinued Medications Generic Name Dose Route Start Last Admin Trade Name Inderjit PRN Reason Stop Dose Admin Prednisone 60 mg 01/06/25 15:25 01/06/25 15:34 Prednisone 20 Mg Tablet PO 01/06/25 15:26 60 mg ONCE ONE Administration Discharge Plan Discharge Clinical Impression: Burton's palsy Patient Disposition: Home, Self-Care Condition: Stable Instructions: Burton Palsy (ED) Additional Instructions: Take Valtrex 1 g 3 times a day for 1 week. Continue with prednisone for 6 more days, next dose due tomorrow. Need to use lubricating eye drops in the right eye every hour and as needed to keep the eye moist until your blink reflex returns. You also need to get Lacri-Lube which is sold [id number], is an ointment to lubricate the eye. You will need to paper taper find a way to keep the eye shut at night. This helps prevent corneal damage from the eye being open. If you are having I issues, please seek evaluation with optometry immedia tely. You will need to schedule follow-up with ENT, try to get in with Dr. Colon next week, phone number to call to get scheduled is [phone]; his scheduling is done through the [facility] but they schedule for all the clinics he goes to including [facility]. Monitor your blood pressure at home, if it is consistently elevated, follow-up with Dr. Urena. Activity Level: No Restrictions Prescriptions: New valacyclovir 1 gram tablet 1,000 mg PO TID Qty: 21 0RF prednisone 20 mg tablet 60 mg PO DAILY 6 Days Qty: 18 0RF Rx Instructions: Take in morning and take with food; can split dose up into 40mg in morning and 20mg in the afternoon if there is any problem with stomach issues taking this. Do not take within 8 hours of bedtime as it may increase insomnia issues. No Action calcium PO Ocuvite Adult 50 Plus 250 mg (90 mg-160 mg) capsule 1 cap PO QAM alendronate 35 mg tablet 35 mg PO QWEEK Qty: 12 3RF atenolol 100 mg tablet 100 mg PO DAILY Qty: 90 3RF levothyroxine 50 mcg tablet 50 mcg PO DAILY Qty: 90 3RF Zyrtec 10 mg capsule 10 mg PO HS acetaminophen 500 mg capsule 500 - 1,000 mg PO Q6H MDD 4000mg per day PRN (Reason: pain) Qty: 100 0RF valacyclovir 1 gram tablet 2,000 mg PO Q12H 1 Days Qty: 12 5RF Rx Instructions: take for 1 day, at first sign of outbreak Follow Up/Referrals: Myrna Urena MD [Primary Care Provider, Internal Medicine] Stand Alone Forms: [facility] Info Instructions
[2025-01-06 15:15] VITALS: PULSE 57; O2SAT 99
[2025-01-06 15:30] VITALS: PULSE 61; O2SAT 98
[2025-01-06 15:32] VITALS: BP 195/83; PULSE 58; O2SAT 98
== END 2025-01-06 16:12 | disposition home or self-care (01) ==
PROVIDERS: Emergency Provider Family Medicine; PCP Internal Medicine
DX: G51.0 Bell's palsy (principal)
CPT/HCPCS: 99283; J7512

== ENCOUNTER 2025-01-26 14:30 | Outpatient (RCR) | payer MEDICARE, BC, SELFPAY ==
--- NOTE | 2025-01-12 17:12 | SLP.EVAL ---
HYDROGRAPHIC SURVEYOR Bernice Queen Start: 01/12/25 13:25 Freq: Status: Active Protocol: Document 01/12/25 13:25 USHA (Rec: 01/12/25 14:59 USHA [id number]) E-signed By Dave Wilde, HYDROGRAPHIC SURVEYOR HYDROGRAPHIC SURVEYOR System Review History & Reason For Referral Type of Speech Dysphagia Evaluation Evaluation Rehabilitation Order Evaluation and Treat Date of Order 01/11/25 HYDROGRAPHIC SURVEYOR Initial Assessment/POC Intervention Plan & Frequency Intervention Plan Evaluation Education Compensatory swallow strategy training Facial massage and exercise program Frequency/Duration Follow-up in two weeks; once patient is able to get some facial movement on the right, will see 1x/week for 10-12 weeks, as indicated. Coordination Of Plan Referring provider Has Been PCP Communicated With Discharge Plan Patient Will be Completion of LTG(s),Skills Plateau,Independent w/HEP, Discharged from Independently Progressing Therapy Therapist Signature & License # I Certify That Therapy Services Provided,Therapy Plan Established, Under My Supervision,Therapy Plan Reviewed Therapist Signature Dave Wilde MS [facility]-HYDROGRAPHIC SURVEYOR #[id number] & License Number Certification Date Date of First Visit 01/12/25 for Therapy Clinic Certification #[id number] # Recertification Due 04/12/25 Date Physician Signature Signature of Treatment Plan,Certification Plan,Medically Needed Physician Indicates Services Physician Signature Please Sign/Date Here & Date Required Dysphagia Evaluation Evaluation Reason for Referral Swallowing difficulty with Burton's Palsy Medical Diagnosis Burton's Palsy G51.0 Treatment Diagnosis Burton's Palsy G51.0 Oral phase dysphagia R13.11 Date of Order 01/11/25 Type of Referral Evaluation and Treat Onset of Patient's 01/06/25 Problem Pertinent Medical Maria Guadalupe went to ER on 01/06/25 due to left sided History facial numbness and droop. Medications Started prednisone and Vatrex for [place] [facility] Palsy Hearing Status WNL Vision Status Glasses Subjective/Pain Maria Guadalupe reports some pain in her TMJ, left more than Comment right. Goals/Functional Patient goal: get the right side of my face to work Outcomes Long-term goal: Patient will report improved swallowing and improved movement on the right side of her face, per report by patient and an improved score on the EAT- 10 (baseline score = 8) Short term goals to be met in 8 weeks: -Patient will verbalize understanding of results and recommendations. -Patient will independently use compensatory swallow techniques to improve the safety and efficiency of swallowing. -Patient will independently complete gentle facial massage 1-2x/day help to reduce muscle tension, improve facial movement, and decrease the risk of synkinesis ( involuntary muscle movements). -Patient will complete assisted facial exercises to help position her face to make movement easier. -Patient will complete facial exercises to enhance strength, tone, and coordination of the facial muscles. Dysphagia: General Information General Current Food Soft with thin Consistency Patient Orientation Person,Place,Time,Situation Ability to Follow Excellent Directions Oral Expression No Impairment Ability Voice Voice Quality Normal Voice Pitch Normal Voice Loudness Normal Oral-Facial Assessment Face Facial Symmetry Asymmetrical,Right side asymmetry Face Comment No movement on the right; unable to raise eyebrow or close eye on the right Mouth Mouth Occlusion Normal Teeth Intact/Normal Characteristics Teeth Comment Upper bridge on left Pucker Lips Reduced ROM,Droops Right Smile Reduced ROM,Droops Right Puff Cheeks Reduced Strength Tongue Movement Side to Side Excursion Normal Range of Movement Normal Speed of Movement Normal Tongue Strength With Normal Opposing Force Movement Normal/Absent Characteristics Protrusion Excursion Normal Range of Movement Normal Speed of Movement Normal Tongue Strength With Normal Opposing Force Movement Normal/Absent Characteristics Food Presentation Evaluation Dysphagia Evaluation Pureed,Liquid Food Type Liquid Behaviors Falls out of mouth Liquid Behaviors Patient needs to place straw or cup on the left side of Comments her mouth and/or hold right side of face to avoid anterior leakage on the right. Pureed Food Behavior Patient needs to place bolus on the left side of her Comments mouth and pull right check toward her ear to avoid pocketing on the right. Dietary Minced & Moist: IDDSI Level 5 Recommendations Liquid Thin Liquids: IDDSI Level 0 Recommendations Swallow Precautions Sitting Upright (90 deg),Small Bites and Sips,Alternate Liquids/Solids Dysphagia Evaluation Maria Guadalupe is a 74-year-old female with recent diagnosis Assessment/ of Burton's Palsy with right facial droop and inability Impressions to close her right eye. A clinical swallow evaluation was completed per provider orders. Patient presents with a mild oral dysphagia related to right-sided facial droop. Oral phase of the swallow marked by reduced oral control. Pharyngeal phase of the swallow remains intact with no overt s/s of aspiration. Recommend minced and moist consistencies with thin liquids. Safe swallow strategies include upright for all po and remain upright 30 minutes after meals, small bites/sips while placing food/straw on the left side of the mouth and holding the right side as needed to avoid oral pocketing on the right, and slow rate of intake. Recommend speech therapy to assist with facial exercises once patient begin to see some recovery. Until then, she will do gentle facial massage 1-2 times per day as well as relaxation techniques. Patient to follow-up in two weeks and once ready to start exercises, recommend 1x/week for 10-12 weeks. Dysphagia Education Topics Education Topics Teaching Recipient Patient Teaching Methods Verbal Education Comments Education provided on the need to wait for exercises until she starts to see some recovery on the right side of her face to avoid complications such as synkinesis. Until then, patient will perform gentle facial massage 1-2 times per day. Therapist Signature/ Dave Wilde MS CCC-HYDROGRAPHIC SURVEYOR #[id number] License Number Speech/Language Pathology Billing Units Billing Units Eval Swallow 1 Function
--- NOTE | 2025-02-07 12:45 | SLP.DPN ---
DISCIPLINARY HEARING OFFICER Daily Progress Note DISCIPLINARY HEARING OFFICER Daily Progress Note Start: 01/12/25 15:24 Freq: Status: Active Protocol: Document 01/26/25 14:55 USHA (Rec: 01/26/25 15:09 USHA [id number]) E-signed By Dave Wilde, DISCIPLINARY HEARING OFFICER DISCIPLINARY HEARING OFFICER Daily Progress Note Subjective Note Type Daily Note,Discharge Note Visit Number 2 Subjective/Pain Maria Guadalupe has had significant improvement over the past Comments two weeks and is getting movement on the right side of her face. She is very encouraged by this. Pain Since Last Less Visit Patient and Insurance Information Insurance Name Medicare B Daily Treatment Information Interventions Swallowing (30 minutes) Provided Today -successfully drinking liquids from a cup with no overt s/s of aspiration and no anterior leaking on the right . -chewing on the left side of her mouth the majority of the time but has started to masticate softer solids on the right with mild oral residue. Previously, she was unable to perform a lingual sweep on the right but now that is a successful strategy to remove oral pocketing. Speech- (15 minutes) -100% intelligibility at the conversational level. Some cheek puffing out on the right with plosive bilabial sounds -No longer needs to support the right side of her face when she speaks Education -the risk of co-mani muscles and synkinesis. -keeping the left side of the face relaxed and practiced head to shoulder relaxation technique. -patient feels like she's like to do some exercises so instructed on very gentle assisted movement in front of a mirror. Small movements with no more than 10 repetitions. Maria Guadalupe verbalized understanding of all education topics. Total Treatment Time 45 (Minutes) Query Text:Eval and Treatment total time Goals/Functional Outcomes Goals/Functional Patient goal: get the right side of my face to work Outcomes Long-term goal: Patient will report improved swallowing and improved movement on the right side of her face, per report by patient and an improved score on the EAT- 10 (baseline score = 8) Short term goals to be met in 8 weeks: -Patient will verbalize understanding of results and recommendations. Goal met. -Patient will independently use compensatory swallow techniques to improve the safety and efficiency of swallowing. Goal met. -Patient will independently complete gentle facial massage 1-2x/day help to reduce muscle tension, improve facial movement, and decrease the risk of synkinesis ( involuntary muscle movements). Goal met. -Patient will complete assisted facial exercises to help position her face to make movement easier. Goal met, instructed in exercises with model and return demonstration. Patient reports no difficulty with performing independently. -Patient will complete facial exercises to enhance strength, tone, and coordination of the facial muscles. Goal discontinued. Daily Assessment/POC Assessment Maria Guadalupe is a 74-year-old female recently diagnosed with Burton's palsy with right facial weakness and a mild oral dysphagia. She has made significant improvement over the past two weeks. She is tolerating softer solids and thin liquids with independent use of swallow strategies. Her speech is 100% intelligible at the conversational level. She is doing facial massage independently and demonstrated understanding of gentle assisted exercises today. Home Program Good Compliance Information Teaching Methods Verbal,Demonstration Home Program Gentle assisted exercise in front of mirror: eyebrow Specifics/Comments raise, eye closure, labial protrusion and labial retraction. Patient to discontinue if she noticed increased tension on the left side of her face. Daily Plan of Care Continue Per POC Daily Plan of Care Will return in two weeks. If she has significant Comments improvement, she states that she will cancel her appointment and continue on her own. If patient does not return, this note will serve as a discharge summary . ADDENDUM: Phone call made to patient. She reports that she is doing well with speech and swallowing. We completed the EAT-10 over the phone and her score improved from a score of 8 to a score of 2 (3 or greater indicates dysphagia). Her speech is 100% intelligible at the conversation level over the phone without her needing to hold the right side of her face with her hand. She feels that she looks symmetrical but continues to having difficulty with closing her right eye. No further speech therapy indicated. Treating Therapist's Dave Wilde MS CCC-DISCIPLINARY HEARING OFFICER #[id number] Name & License Number Discharge Information Date of First Visit 01/12/25 for Therapy Date of Last Visit 01/26/25 for Therapy Total Number of 2 Visits Initial Primary Right facial droop that was affecting her swallowing Functional and speech intelligibility. Limitations/Concerns Comments Regarding Excellent Expected Functional Outcomes Interventions Evaluation Provided During Education Treatment Comments Compensatory strategy training for speech and swallowing Facial massage and assisted exercise program Reasons for Met All Therapy Goals Discharge Speech/Language Pathology Billing Units Billing Units Speech/Hearing 1 Therapy Indiv Treat Swallow 1 Dysfunction
== END 2025-02-07 12:45 | disposition home or self-care (01) ==
PROVIDERS: PCP Internal Medicine; Visit Provider Physician Assistant
DX: G51.0 Bell's palsy (principal); R13.11 Dysphagia, oral phase; Z51.89 Encounter for other specified aftercare
CPT/HCPCS: 92507; 92526; 92610

== ENCOUNTER 2025-03-08 07:09 | Outpatient (CLI) | payer MEDICARE, BC, SELFPAY ==
--- NOTE | 2025-03-08 08:28 | P.ANES_ITS ---
Anesthesia Charges Start Date/Time Anesthesia Start Date: 03/08/25 Anesthesia Start Time: 08:08 Stop Date/Time Anesthesia Stop Date: 03/08/25 Anesthesia Stop Time: 08:30 Coding CPT Codes CPT Codes: ANIL LWR INTST NDSC NOS - [id number] ([id number]) P2 - PATIENT W/MILD SYST DISEASE, QK - SUPERVISOR WATERPROOFING 2-4 CNCRNT ANES PROC, QX - MANAGER AREA SVC W/ MD MED DIRECTION
--- NOTE | 2025-03-08 08:28 | W.ANESCHARGE ---
Anesthesia Charges Start Date/Time Anesthesia Start Date: 03/08/25 Anesthesia Start Time: 08:08 Stop Date/Time Anesthesia Stop Date: 03/08/25 Anesthesia Stop Time: 08:30 Coding CPT Codes CPT Codes: ANIL LWR INTST NDSC NOS - [id number] ([id number]) P2 - PATIENT W/MILD SYST DISEASE, QK - MACHINE OPERATOR 2-4 CNCRNT ANES PROC, QX - REAL ESTATE ANALYST SVC W/ MD MED DIRECTION
--- NOTE | 2025-03-08 08:59 | W.ANESCHARGE ---
Anesthesia Charges Start Date/Time Anesthesia Start Date: 03/08/25 Anesthesia Start Time: 08:08 Stop Date/Time Anesthesia Stop Date: 03/08/25 Anesthesia Stop Time: 08:30 Summary Extremes of Age - Over 70 or under 1: MDA Coding CPT Codes CPT Codes: ANES LWR INTST NDSC NOS - [id number] ([id number]) QK - PHARMACEUTICAL SALES SPECIALIST 2-4 CNCRNT ANES PROC, QX - SWIMMING INSTRUCTOR SVC W/ MD MED DIRECTION, P2 - PATIENT W/MILD SYST DISEASE Additional Codes: Summary - Extremes of Age - Over 70 or under 1: MANI ([id number])
== END 2025-03-08 07:10 | disposition home or self-care (01) ==
LOC: OP CLINIC 07:09
PROVIDERS: PCP Internal Medicine; Visit Provider Surgery
DX: D12.5 Benign neoplasm of sigmoid colon (principal); Z83.719 Family history of colon polyps, unspecified; Z98.0 Intestinal bypass and anastomosis status
CPT/HCPCS: 00811; 45385; 99100; J2704